=== PATIENT | female | born 1950 | race Caucasian/White ===

== ENCOUNTER → 2019-03-16 09:33 | Outpatient (BNVA) | payer MEDICARE, OTHER, SELFPAY ==
[2019-03-16] MEDS: pneumococcal (23 valent) SDV 0.5 mL (11:35)
--- NOTE | 2019-03-16 11:41 | PC.NURSE ---
1100 PORT TO RIGHT CHEST. APPLIED MASK TO PT AND MYSELF. CLEANED WITH CHLORAPREP. ACCESSED PORT A CATH TO RIGHT CHEST 19G RIGHT AGAIN NEEDED. FLUSHED WITH NS 10ML, WITHDREW 10ML OF WASTE, OBTAINED BLOOD FOR LAB SPECIMENS, FLUSH WITH NS FLUSH 10ML AND HEP LOCK SOLUTION. REMOVED NEEDLE. APPLIED AIR TIGHT DRESSING WITH GAUZE AND TEGADERM. STERILE TECHNIQUE MAINTAINED.
== END ==
PROVIDERS: Family Provider Electrodiagnostic Medicine; PCP Electrodiagnostic Medicine; Visit Provider Internal Medicine Rheumatology
DX: M32.9 Systemic lupus erythematosus, unspecified (principal); Z79.899 Other long term (current) drug therapy; Z23 Encounter for immunization; M35.00 Sjogren syndrome, unspecified; M19.90 Unspecified osteoarthritis, unspecified site; Z51.81 Encounter for therapeutic drug level monitoring; D89.9 Disorder involving the immune mechanism, unspecified; M85.80 Other specified disorders of bone density and structure, unspecified site
CPT/HCPCS: 36591; 80053; 81001; 86160; 90471; 90732; 99213; 99214; J1642

== ENCOUNTER → 2019-03-16 12:00 | Outpatient (BNVA) | payer MEDICARE, OTHER, SELFPAY | PROVIDERS: Family Provider Electrodiagnostic Medicine; PCP Electrodiagnostic Medicine; Visit Provider Internal Medicine Rheumatology | DX: Z51.81 Encounter for therapeutic drug level monitoring (principal); M32.9 Systemic lupus erythematosus, unspecified; D89.9 Disorder involving the immune mechanism, unspecified; M85.80 Other specified disorders of bone density and structure, unspecified site | CPT/HCPCS: 80053; 81001; 86160 ==

== ENCOUNTER 2020-05-12 07:53 | Outpatient (CLI) | payer MEDICARE, OTHER, SELFPAY ==
--- NOTE | 2020-05-12 08:00 | MM_ITS ---
WS: [id number] Bilateral diagnostic digital mammogram, 05/12/2020 Clinical Data: HX OF BREAST CA Comparison: 06/25/2018, 12/26/2017, 05/27/2017, 06/16/2015, 04/02/2011, 10/30/2009, 08/29/2008, 01/04/2008, 07/10/2007, 12/11/2006, 12/02/2006, 11/13/2006, 08/28/2006, 08/20/2006. Findings: The breast parenchymal pattern shows heterogeneous density. There is skin thickening of the left brent st and it is smaller than the right as a result of the patient's therapy for cancer of the left breas t. No spiculated masses or clustered calcifications are seen. There is an infusion port seen in the r ight axilla. MM/[place] [id number] Impression: 1. Negative bilateral mammograms unchanged. 2. Recommend annual screening mammograms. BIRADS: 2-Benign FOLLOW UP: 1 Year Follow-up The CAD checker in was used.
== END 2020-05-12 07:54 | disposition home or self-care (01) ==
LOC: RADSHAW 07:56
PROVIDERS: PCP Electrodiagnostic Medicine; Visit Provider Electrodiagnostic Medicine
DX: Z85.3 Personal history of malignant neoplasm of breast (principal)
CPT/HCPCS: 77066

== ENCOUNTER 2021-12-15 17:57 | Inpatient (IN) | payer MEDICARE, OTHER, SELFPAY ==
[2021-12-15 18:02] VITALS: BMI 25.8
--- NOTE | 2021-12-15 18:52 | CTR_ITS ---
PROCEDURE INFORMATION: Exam: CT Head Without Contrast Exam date and time: 12/15/2021 7:40 PM Age: 71 years old Clinical indication: Injury or trauma; Fall; Blunt trauma (contusions or hematomas); Consciousness not specified; Prior surgery; Surgery date: 6+ months; Surgery type: Aneurysm coil; Patient HX: HX breast CA; Additional info: Fall head injury, dizzy TECHNIQUE: Imaging protocol: Computed tomography of the head without contrast. Radiation optimization: All CT scans at this facility use at least one of these dose optimization techniques: automated exposure control; mA and/or kV adjustment per patient size (includes targeted exams where dose is matched to clinical indication); or iterative reconstruction. COMPARISON: No relevant prior studies available. RADIATION DOSE METRICS: Total DLP (mGy-cm): 1245.78 FINDINGS: Brain: Mild diffuse cortical volume loss. Mild hypodensities in supratentorial periventricular and subcortical white matter, consistent with microangiopathy. No intracranial hemorrhage. Cerebral ventricles: No ventriculomegaly. Paranasal sinuses: Visualized sinuses are unremarkable. No fluid levels. Mastoid air cells: Visualized mastoid air cells are well aerated. Bones/joints: Unremarkable. No acute fracture. Soft tissues: Unremarkable. Vasculature: No hyperdense artery. 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 This creates significant streak artifact. CT/CT head wo con* [id number] IMPRESSION: No acute intracranial finding.
--- NOTE | 2021-12-15 18:52 | XRR_ITS ---
PROCEDURE INFORMATION: Exam: XR Chest Exam date and time: 12/15/2021 7:07 PM Age: 71 years old Clinical indication: Cough; Prior surgery; Surgery date: 6+ months; Surgery type: Lumpectomy for breast CA; Additional info: Cough, HX of pneumonia TECHNIQUE: Imaging protocol: Radiologic exam of the chest. Views: 1 view. COMPARISON: CR XR chest 2V* [id number] 11/26/2021 3:23 PM FINDINGS: Tubes, catheters and devices: Stable right Cescct-N-Qtyo with tip over the right atrium. Lungs: Atelectasis or scarring in the left lung base and right mid lung. New 2.2 cm irregular nodular density in the left mid lung. Pleural spaces: Small left pleural effusion. No pneumothorax. Heart/Mediastinum: Stable mild cardiomegaly. Bones/joints: Unremarkable. Other findings: Rightward thoracic curvature. XR/XR chest 1V portable [id number] IMPRESSION: 1. New nodular density in the left mid lung could represent pneumonia. A neoplastic nodule is not entirely excluded. Close radiographic follow-up is recommended to document resolution. Alternatively this can be further evaluated with a CT chest. 2. Small left pleural effusion.
--- NOTE | 2021-12-15 19:30 | ECG_ITS ---
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 Measurements Intervals [place] Rate: 87 P: 36 MD: 185 QRS: 2 QRSD: 116 T: 82 QT: 379 QTc: 456 Interpretive Statements SINUS RHYTHM POSSIBLE LEFT ATRIAL ENLARGEMENT [-0.1mV P-WAVE IN V1/V2] MODERATE INTRAVENTRICULAR CONDUCTION DELAY [110+ ms QRS DURATION] NONSPECIFIC ST & T-WAVE ABNORMALITY Compared to ECG 04/15/2016 14:24:23 Intraventricular conduction delay now present T-wave abnormality now present Myocardial infarct finding no longer present Electronically Signed On 12-16-2021 9:44:54 PHOTOGRAMMETRIC TECHNICIAN by Irma Teran M.D. [id number]
[2021-12-15 19:31] VITALS: BP 133/60; PULSE 86; RESP 17; O2SAT 97
[2021-12-15 19:37] LABS: Basophils % 0.2 %; Eosinophils % 0.5 %; Hematocrit 41.1 % (37.0-47.0); Hemoglobin 12.8 g/dL (11.5-15.3); Lymphocytes # 0.6 10^3/uL (0.8-4.8); Lymphocytes % 10.2 %; Mean Corpuscular HGB Conc 31.1 g/dL (30.0-36.0); Mean Corpuscular Hemoglobin 30.3 pg (28.0-34.0); Mean Corpuscular Volume 97.4 fl (81-99); Mean Platelet Volume 10.9 fL (7.4-10.4); Monocytes # 0.7 10^3/uL (0.2-0.9); Monocytes % 11.2 %; Neutrophils # 4.71 10^3/uL (1.8-7.7); Neutrophils % 77.6 %; Nucleated Red Blood Cells % 0 %; Platelet Count 158 10^3/cmm (130-400); Red Blood Count 4.22 10^6/uL (4.1-5.3); Red Cell Distribution Width 14.7 % (12.1-15.1); White Blood Count 6.1 10^3/uL (4.0-10.0)
[2021-12-15 19:47] LABS: INR 1.14 (0.8-1.2)
[2021-12-15 19:48] LABS: Partial Thromboplastin Time 27.6 SECONDS (23.9-36.7)
[2021-12-15 19:53] LABS: Alanine Aminotransferase 97 U/L (0-33); Albumin Level 3.7 g/dL (3.5-5.2); Alkaline Phosphatase 124 U/L (35-105); Anion Gap 14.6 (5-19); Aspartate Amino Transferase 36 U/L (0-32); Blood Urea Nitrogen 28 mg/dL (8-23); C Reactive Protein 32.3 mg/L (0.0-4.9); Calcium 9.4 mg/dL (8.5-10.5); Carbon Dioxide 26 mmol/L (22-29); Chloride 98 mmol/L (98-107); Globulin 2.3 g/dL (1.3-4.6); Glucose 55 mg/dL (65-115); Magnesium 2.4 mg/dL (1.7-2.3); Osmolality Calculated 283 mOsm/kg (285-295); Phosphorus 2.8 mg/dL (2.5-4.5); Potassium 3.6 mmol/L (3.5-5.1); Sodium 135 mmol/L (136-145); Total Bilirubin 0.8 mg/dL (0.15-1.2)
--- NOTE | 2021-12-15 20:00 | XRR_ITS ---
PROCEDURE INFORMATION: Exam: XR Right Foot Exam date and time: 12/15/2021 8:21 PM Age: 71 years old Clinical indication: Pain; Foot; Right; Additional info: Foot pain and swelling post injury TECHNIQUE: Imaging protocol: Radiologic exam of the Right foot. Views: 3 or more views. COMPARISON: No relevant prior studies available. FINDINGS: Bones/joints: Old 4th proximal phalanx fracture. No acute fracture. Soft tissues: Dorsal soft tissue swelling. XR/XR foot RT min 3V* [id number] IMPRESSION: No acute fracture.
--- NOTE | 2021-12-15 20:02 | CTR_ITS ---
PROCEDURE INFORMATION: Exam: CT Chest With Contrast; Diagnostic Exam date and time: 12/15/2021 8:27 PM Age: 71 years old Clinical indication: Injury or trauma; Fall; Generalized; Blunt trauma (contusions or hematomas); Additional info: Falls, elevated liver enzymes, nodular lung density TECHNIQUE: Imaging protocol: Diagnostic computed tomography of the chest with contrast. Radiation optimization: All CT scans at this facility use at least one of these dose optimization techniques: automated exposure control; mA and/or kV adjustment per patient size (includes targeted exams where dose is matched to clinical indication); or iterative reconstruction. Contrast material: OMNIPAQUE 350; Contrast volume: 100 ml; Contrast route: INTRAVENOUS (IV); COMPARISON: CR (CHEST, ) 12/15/2021 7:07 PM RADIATION DOSE METRICS: Total DLP (mGy-cm): 806.82 FINDINGS: Lungs: Patchy/nodular airspace opacities in both lower lobes. Nodular consolidation with a small cavitation in the anterior left upper lobe measuring 2.9 cm. Pleural spaces: Moderate left and small right pleural effusions. Heart: Mild cardiomegaly. No coronary artery calcifications. The RV/LV ratio is 0.7. Lymph nodes: Unremarkable. No enlarged lymph nodes. Vasculature: There is abrupt cut off of contrast opacification of a posterior right lower lobe pulmonary artery branch, series 3, images 38-40. Bones/joints: Mild superior T11 compression fracture. Soft tissues: Unremarkable. PROCEDURE INFORMATION: Exam: CT Abdomen And Pelvis With Contrast Exam date and time: 12/15/2021 8:27 PM Age: 71 years old Clinical indication: Injury or trauma; Fall; Generalized; Blunt trauma (contusions or hematomas); Additional info: Falls, elevated liver enzymes, nodular lung density TECHNIQUE: Imaging protocol: Computed tomography of the abdomen and pelvis with contrast. Radiation optimization: All CT scans at this facility use at least one of these dose optimization techniques: automated exposure control; mA and/or kV adjustment per patient size (includes targeted exams where dose is matched to clinical indication); or iterative reconstruction. Contrast material: OMNIPAQUE 350; Contrast volume: 100 ml; Contrast route: INTRAVENOUS (IV); COMPARISON: CR (CHEST, ) 12/15/2021 7:07 PM RADIATION DOSE METRICS: Total DLP (mGy-cm): 806.82 FINDINGS: Liver: Normal. No mass. Gallbladder and bile ducts: Normal. No calcified stones. No ductal dilation. Pancreas: Normal. No ductal dilation. Spleen: Normal. No splenomegaly. Adrenal glands: Normal. No mass. Kidneys and ureters: Normal. No hydronephrosis. Stomach and bowel: Unremarkable. No obstruction. No mucosal thickening. Appendix: The appendix is visualized and is normal. Intraperitoneal space: Mild pelvic ascites. No free peritoneal air. Vasculature: Mild arterial calcifications. No aneurysm. Lymph nodes: Unremarkable. No enlarged lymph nodes. Urinary bladder: Unremarkable as visualized. Reproductive: The uterus is absent. The ovaries are normal. Bones/joints: Moderate L1 and minimal L2 compression fractures. Soft tissues: Mild body wall edema. No organized soft tissue fluid collection. CT/CT chest abd pel w con* IMPRESSION: 1. Findings suspicious for a small pulmonary embolus in a right lower lobe artery branch. 2. Bilateral multilobar nodular consolidations is most likely pneumonia. 3. 2.9 cm nodular consolidation in the anterior left upper lobe with a small cavitation. This could represent pneumonia with a small abscess. A septic embolus or malignant neoplasm are considered less likely. Close CT follow-up to document resolution recommended. 4. Moderate left and small right pleural effusions. IMPRESSION: 1. No acute findings. 2. Mild nonspecific pelvic ascites. 3. Mild body wall edema. 4. Age indeterminate T11, L1, and L2 compression fractures.
[2021-12-15] MEDS: iohexol 350 mg/mL 500 mL Btl (per mL) IV (20:34)
--- NOTE | 2021-12-15 20:48 | W.ED.FALL ---
HPI - Fall General: Chief Complaint: Fall Stated Complaint: fall/ all over pain Time Seen by Provider: 12/15/21 18:28 Source: patient History of Present Illness: 71-year-old female with a history of systemic lupus. She presents after a couple of falls at home. She was diagnosed with pneumonia couple of weeks ago, and evidently took antibiotics for this. She had COVID prior to that around 3 weeks ago. Since that time she has been generally weak. She has been off balance at home. She denies any ongoing fever. She does have somewhat of a cough still. She is not overly short of breath. She notes that she is very generally weak. MD complaint: fall Onset (ago): day(s) Fall from: standing Fall witnessed: no Place fall occurred: home Loss of consciousness: None Prolonged down time: no Symptoms prior to fall: dizziness Associated symptoms-after fall: Reports difficulty walking; Denies abdominal pain or chest pain Review of Systems Const: Denies: fever(s) or chills Eyes: Denies: change in vision ENMT: Reports: swelling of lips/tongue and oral sores (stomatitis ); Denies: throat pain Card: Denies: chest pain or palpitations Resp: Denies: dyspnea, productive cough or non-productive cough GI: Reports: nausea; Denies: abdominal pain or vomiting Neuro: Reports: difficulty walking, frequent falls and dizziness [facility] PFSH: Medical History Hyperlipidemia LDL goal <100 Immunosuppression Osteopenia Systemic lupus erythematosus (SLE) in adult Varicose veins of bilateral lower extremities with other complications Vitamin D deficiency, unspecified Family History Other Cancer Hyperlipidemia Migraine headache Osteoarthritis Rheumatoid arthritis Stroke Social History Smoking and tobacco status: never smoked Alcohol intake: current Alcohol intake frequency: 3 or more drinks per day Alcohol type: wine History of recent travel: No Physical Exam Const: GENERAL APPEARANCE: cooperative and frail appearing HENMT: COMMON NORMALS: normocephalic, atraumatic and Normal external nose present HEAD & SCALP: normocephalic and atraumatic FACE & SINUS: normal facial exam and face symmetric NOSE: Normal external nose present MOUTH: other (stomatitis present) Eye: COMMON NORMALS: Equal, round and reactive pupils present and EOMs intact bilaterally PUPIL: Yes Equal, round and reactive pupils present Chest: CHEST: Yes Symmetrical chest wall rise Resp: COMMON NORMALS: normal respiratory effort, No use of accessory muscles and clear to auscultation bilaterally AUSCULTATION: clear to auscultation bilaterally Cardio: COMMON NORMALS: regular rate and regular rhythm RATE: regular rate RHYTHM: regular rhythm GI: COMMON NORMALS: Normal to inspection, nondistended, normoactive bowel sounds present, Soft to palpation and non-tender PALPATION: Yes Soft to palpation Extremity: GENERAL: Yes edema (2+) Neuro: TONYA COMA SCALE: document GCS findings Tonya coma scale eye opening: Spontaneous [place] coma scale verbal response: Orientated Tonya coma scale motor response: Obey commands [place] coma scale total score: 15 Psych: COMMON NORMALS: mental status grossly normal and cooperative Course Vital Signs: Vital signs: Vital Signs Temperature 97.5 F L 12/16/21 00:00 Pulse Rate 90 12/16/21 00:00 Respiratory Rate 17 12/16/21 00:00 Blood Pressure 113/69 12/16/21 00:00 Pulse Oximetry 92 12/16/21 00:00 Oxygen Delivery Me thod 12/16/21 00:57 MDM - Fall Medical Decision Making 71-year-old female with a history of SLE. She presents with generalized weakness and falls. Chest x-ray shows a nodular density in the left midlung. CBC is normal. BUN is 28 creatinine is 1. Her sugar is 55. She is awake and alert with this. CT of the head is negative. Foot x-ray is negative. CT of the chest abdomen pelvis shows a nodular lesion in the left upper lobe with a cavitation likely representing pneumonia with a possible small abscess. She has bilateral pleural effusions. And she likely has a small pulmonary embolus in the right lower lobe as well. Spoke with hospitalist service. We will admit this patient for IV antibiotics. Zosyn was suggested, but she is allergic to penicillin which causes swelling so we will use Levaquin for now. She will require anticoagulation for the pulmonary embolus. Given her significant elevation of 24,000 BNP, we will attempt to gently diurese her. She will be admitted. Repeat blood sugar after sandwich was 69. She remains awake and alert. We will feed her some more, and recheck sugar in 2 hours. Lab Data : 12/15/21 19:27 12/15/21 19: Radiology Impressions Chest X-Ray 12/15/21 18:52 IMPRESSION: 1. New nodular density in the left mid lung could represent pneumonia. A neoplastic nodule is not entirely excluded. Close radiographic follow-up is recommended to document resolution. Alternatively this can be further evaluated with a CT chest. 2. Small left pleural effusion. Head CT 12/15/21 18:52 IMPRESSION: No acute intracranial finding. Foot X-Ray 12/15/21 20:00 IMPRESSION: No acute fracture. Chest/Abdomen/Pelvis CT 12/15/21 20:02 IMPRESSION: 1. Findings suspicious for a small pulmonary embolus in a right lower lobe artery branch. 2. Bilateral multilobar nodular consolidations is most likely pneumonia. 3. 2.9 cm nodular consolidation in the anterior left upper lobe with a small cavitation. This could represent pneumonia with a small abscess. A septic embolus or malignant neoplasm are considered less likely. Close CT follow-up to document resolution recommended. 4. Moderate left and small right pleural effusions. IMPRESSION: 1. No acute findings. 2. Mild nonspecific pelvic ascites. 3. Mild body wall edema. 4. Age indeterminate T11, L1, and L2 compression fractures. ADDENDUM: 12/15/212112 THIS REPORT CONTAINS FINDINGS THAT MAY BE CRITICAL TO PATIENT CARE. The findings were verbally communicated via telephone conference with BRANDAN ACEVEDO at 9:11 PM CDT on 12/15/2021. The findings were acknowledged and understood. Laboratory Results WBC 6.1 10^3/uL (4.0-10.0) 12/15/21: RBC 4.22 10^6/uL (4.1-5.3) 12/15/21: Hgb 12.8 g/dL (11.5-15.3) 12/15/21: Hct 41.1 % (37.0-47.0) 12/15/21: MCV 97.4 fl (81-99) 12/15/21: MCH 30.3 pg (28.0-34.0) 12/15/21: MCHC 31.1 g/dL (30.0-36.0) 12/15/21: RDW 14.7 % (12.1-15.1) 12/15/21: Plt Count 158 10^3/cmm (130-400) 12/15/21 MPV 10.9 fL (7.4-10.4) H 12/15/21: Neut % (Auto) 77.6 % 12/15/21: Lymph % (Auto) 10.2 % 12/15/21: [place] % (Auto) 11.2 % 12/15/21 Eos % (Auto) 0.5 % 12/15/21 Baso % (Auto) 0.2 % 12/15/21 Neut # (Auto) 4.71 10^3/uL (1.8-7.7) 12/15/21 Lymph # (Auto) 0.6 10^3/uL (0.8-4.8) L 12/15/21: [place] # (Auto) 0.7 10^3/uL (0.2-0.9) 12/15/21 Eos # (Auto) 0.0 10^3/uL (0.0-0.8) 12/15/21 Baso # (Auto) 0.0 10^3/uL (0.0-0.1) 12/15/21 Nucleated RBC % (auto) 0 % 12/15/21 Nucleated RBCs # 0.0 /100WBC 12/15/21: PT 14.90 SECONDS (12.1-14.9) 12/15/21: INR 1.14 (0.8-1.2) 12/15/21: APTT 27.6 SECONDS (23.9-36.7) 12/15/21: Sodium 135 mmol/L (136-145) L 12/15/21 Potassium 3.6 mmol/L (3.5-5.1) 12/15/21: Chloride 98 mmol/L (98-107) 12/15/21: Carbon Dioxide 26 mmol/L (22-29) 12/15/21 19:27 Anion Gap 14.6 (5-19) 12/15/21 19:27 BUN 28 mg/dL (8-23) H 12/15/21 19: Creatinine 1.0 mg/dL (0.5-0.9) H 12/15/21 19:27 GFR Calculation Not Reportable 12/15/21: Glucose 55 mg/dL (65-115) L 12/15/21: Calculated Osmolality 283 mOsm/kg (285-295) L 12/15/21 19: Lactate 2.0 mmol/L (0.5-2.2) 12/15/21 19: Calcium 9.4 mg/dL (8.5-10.5) 12/15/21: Phosphorus 2.8 mg/dL (2.5-4.5) 12/15/21: Magnesium 2.4 mg/dL (1.7-2.3) H 12/15/21: Total Bilirubin 0.8 mg/dL (0.15-1.2) 12/15/21 19: AST 36 U/L (0-32) H 12/15/21 19: ALT 97 U/L (0-33) H 12/15/21 19:27 Alkaline Phosphatase 124 U/L (35-105) H 12/15/21 19: C-Reactive Protein 32.3 mg/L (0.0-4.9) H 12/15/21 19: NT-Pro-B Natriuret Pep 53467 pg/mL (0-125) H 12/15/21 19: Total Protein 6.0 g/dL (6.6-8.7) L 12/15/21 19: Albumin 3.7 g/dL (3.5-5.2) 12/15/21 19: Globulin 2.3 g/dL (1.3-4.6) 12/15/21 19:27 Discharge Plan Discharge Patient Disposition: Admitted As Inpatient Admit Provider: Lauryn Ulrich Clinical Impression: Systemic lupus erythematosus (SLE) in adult, Pulmonary embolism, Pneumonia Condition: Fair Coding Level of Care Code ED Clerical Adviser for Chg Fwd Exam Comprehensive
[2021-12-15 21:19] LABS: NT Pro B Type Natriuretic Pept 25035 pg/mL (0-125)
[2021-12-15] MEDS: levofloxacin-dextrose 5 % 750 MG/150 ML PREMIX 100 MG IV (22:18)
[2021-12-15] MEDS: enoxaparin 80 mg/0.8 mL Syringe 70 MG SUBCUT (22:31)
[2021-12-15] MEDS: FUROsemide 10 mg/mL SDV 10mL 60 MG IVP (22:31)
--- NOTE | 2021-12-15 22:49 | USCV_ITS ---
Xenia Vivas Age: 71 Gender: F : 1950 Exam Date: 12/15/2021 23:13 Ordering Phys: Lauryn Ulrich MD Technologist: Connie Vivas Exam Location: [facility] [place] Indication: PE, Chest Pain BP: 133 / 60 HR: 92 Rhythm: Sinus Technical Quality: Suboptimal MEASUREMENTS (Male / Female) Normal Values 2D ECHO LV Diastolic Diameter PLAX 5.1 cm 4.2 - 5.9 / 3.9 - 5.3 cm LV Systolic Diameter PLAX 4.0 cm LV Chamber Size 4.0 cm IVS Diastolic Thickness 1.1 cm 0.6 - 1.0 / 0.6 - 0.9 cm IVS Systolic Thickness 1.2 cm LVPW Diastolic Thickness 1.1 cm 0.6 - 1.0 / 0.6 - 0.9 cm LVPW Systolic Thickness 1.6 cm RV Chamber Size 3.3 cm LVOT Diameter 2.1 cm LV Ejection Fraction 2D Teich 41.8 % LV Ejection Fraction MOD 2C 50.1 % LV Ejection Fraction 2C AL 50.1 % LA Diameter 4.2 cm LA Width 3.0 cm LA Height 6.3 cm RA Width 4.5 cm RA Height 4.7 cm Aorta at Sinotubular Diameter 2.7 cm IVC Diameter 2.7 cm M-MODE Aortic Annulus Diameter 1.6 cm LA Ao Ratio MM 1.7 MV E Point Septal Separation 1.8 cm DOPPLER AV Peak Velocity 303.0 cm/s LVOT Peak Velocity 69.3 cm/s AV Area Cont Eq vti 1.0 cm squared AV Area Cont Eq pk 0.8 cm squared MV Area PHT 5.5 cm squared Mitral E to A Ratio 1.1 MV E' Velocity 64.5 cm/s Mitral E to MV E' Ratio 11.3 Mitral E to LV E' Lateral Ratio 8.5 Mitral E to LV E' Septal Ratio 16.6 TR Peak Velocity 334.5 cm/s TR Peak Gradient 44.8 mmHg TR Mean Velocity 225.0 cm/s TR Mean Gradient 23.3 mmHg TR Velocity Time Integral 100.7 cm TV Peak E Velocity 101.0 cm/s Right Atrial Pressure 8.0 mmHg Pulmonary Artery Systolic Pressu 52.8 mmHg RV Acceleration Time 0.1 s RV Ejection Time 0.3 s RV AcT/ET 0.5 FINDINGS Left Ventricle Normal left ventricular cavity size. Mildly decreased left ventricular systolic function. Left ventricular ejection fraction is estimated at 45-50 %. There seems to be septal and apical hypokinesis. Grade II diastolic dysfunction, moderately elevated filling pressures. Right Ventricle Normal right ventricular size and systolic function. Right ventricular systolic pressure 52 mmHg. Right Atrium Normal right atrial size. Left Atrium Mildly increased left atrial size. Mitral Valve Mild mitral annular calcification. No mitral valve stenosis. Mild mitral valve regurgitation. Aortic Valve Aortic valve not well visualized. Moderately thickened and calcified aortic valve. Moderate aortic valve stenosis, peak velocity 3 m/s, peak gradient 37 mmHg , mean gradient 17.8 mmHg, KRUPA 0.96 cm squared. [id number] aortic valve regurgitation. Tricuspid Valve Structurally normal tricuspid valve. No tricuspid valve stenosis. Mild tricuspid valve regurgitation. Pulmonic Valve Pulmonic valve not well visualized. Pericardium No pericardial effusion. Aorta Normal size aortic root and proximal ascending aorta. IVC Inferior vena cava not visualized. CONCLUSIONS 1. Normal left ventricular cavity size. Mildly decreased left ventricular systolic function. Left ventricular ejection fraction is estimated at 45-50 %. There seems to be septal and apical hypokinesis. Grade II diastolic dysfunction, moderately elevated filling pressures. 2. Normal right ventricular size and systolic function. 3. Moderately thickened and calcified aortic valve. Moderate aortic valve stenosis, peak velocity 3 m/s, peak gradient 37 mmHg , mean gradient 17.8 mmHg, KRUPA 0.96 cm squared. [id number] aortic valve regurgitation. 4. Mild mitral and tricuspid valve regurgitation. 5. No recent prior studies to compare. Irma Teran MD (Electronically Signed) Final Date: 16 December 2021 10:35 S
--- NOTE | 2021-12-15 22:58 | PM.HP ---
Providers/Chief Complaint Admitting Physician: Lauryn Ulrich MD Primary Care Provider: Jay Juarez DO Chief Complaint: fall/ all over pain History of Present Illness Xenia Vivas is a 71 year old female with a past medical history of SLE currently on belimumab. HCQS, leflunomide presenting to the emergency room with history of recent recurrent falls at home. She is complaining of generalized fatigue and malaise. She saw her kitchen help handyman 3 and primary care provider approximately 3 weeks ago and was diagnosed with a pneumonia for which she has been on antibiotics. Does not recall the name but possibly this is doxycycline. Reportedly she had COVID a month ago following which she has developed anosmia, abnormal taste and has had a persistent cough since then. She reports feeling dizzy with change in position. No injuries have resulted from these falls. She denies any current complaints of chest pain palpitations. She does complain of subjective dyspnea. She is noted to be saturating 90% on room air. Upon evaluation in the emergency room she is found to have a chest x-ray with new nodular density in the left midlung suggestive of pneumonia versus neoplasm. Follow-up CT of the chest was performed which showed bilateral multilobar nodular consolidations likely consistent with a pneumonia. 2.79 cm nodular consolidation in the anterior left upper lobe also shows an additional cavitation. Small abscess could not be excluded. She had moderate left and small right pleural effusions. Also has right side PE. Also signs of mild pelvic ascites, body wall edema and old T11 L1-L2 compression fractures. Abnormalities on lab testing include elevated BNP. Ct head normal. Review of Systems General: Reports: 10 or more systems reviewed and unremarkable except in HPI and below Const: Denies: fever(s), chills or body aches Eyes: Denies: change in vision, blurry vision or photophobia ENMT: Reports: hoarseness; Denies: throat pain, enlarged tonsils, odynophagia or nasal congestion Card: Denies: chest pain, palpitations, irregular heart rhythm, edema, swelling of feet/ankles, lightheadedness, pre-syncope, dyspnea on exertion or orthopnea Resp: Denies: dyspnea, productive cough, non-productive cough, wheezing, stridor, pain on inspiration, change in phlegm color, hemoptysis or chest congestion GI: Denies: abdominal pain, nausea, vomiting, hematemesis, coffee ground emesis, dysphagia, heartburn, diarrhea, constipation, GI cramping, change in stool character, hematochezia or melena : Denies: flank pain, difficulty voiding, dysuria, urinary frequency, urinary urgency, urinary hesitancy or hematuria Musc: Denies: neck pain, back pain, extremity pain, joint swelling, joint warmth or deformity Neuro: Denies: headache(s), numbness in extremities, weakness in extremities, sensory changes, difficulty walking, frequent falls, dizziness, vertigo, behavioral changes, Slurred speech present or seizure-like activity Psych: Denies: anxiety, depression, suicidal ideation or homicidal ideation Endo: Denies: polyuria, polydipsia, tired all the time, cold intolerance or hot flashes Aniket/Lymph: Denies: easy bruising or easy bleeding Medications/Allergies Home Medications Medication Instructions Recorded Confirmed Last Taken Type aspirin 325 mg tablet 325 mg PO DAILY 02/08/19 09/14/20 Unknown History belimumab 200 mg/mL subcutaneous 200 mg SUBCUT .ONCE WEEKLY 02/08/19 09/14/20 Unknown History auto-injector (Benlysta) calcium carbonate 600 mg calcium 600 mg PO DAILY 02/08/19 09/14/20 Unknown History (1,500 mg) tablet (Calcium) calcium carbonate-magnesium oxide tab PO 02/08/19 09/14/20 Unknown History 333 mg-167 mg tablet cholecalciferol (vitamin D3) 25 1,000 unit PO DAILY 02/08/19 09/14/20 Unknown History mcg (1,000 unit) capsule dextran 70-hypromellose (PF) 0.1 1 drop ophthalmic (eye) ONCE 02/08/19 09/14/20 Unknown History %-0.3 % eye drops in a dropperette (Natural Tears (PF)) omega-3 fatty acids 1,000 mg 1,000 mg PO DAILY 02/08/19 09/14/20 Unknown History capsule (Fish Oil Concentrate) potassium gluconate 595 mg (99 mg) See Rx Instructions PO DAILY 02/08/19 09/14/20 Unknown History tablet,extended release atorvastatin 20 mg tablet 20 mg PO DAILY 03/16/19 09/14/20 Unknown History escitalopram oxalate 10 mg tablet 10 mg PO DAILY 03/16/19 09/14/20 Unknown History hydroxychloroquine 200 mg tablet 200 mg PO DAILY 03/16/19 09/14/20 Unknown History leflunomide 20 mg tablet 20 mg PO DAILY 03/16/19 09/14/20 Unknown History amitriptyline 25 mg tablet 25 mg PO DAILY 08/24/19 09/14/20 Unknown History zinc 50 mg tablet 50 mg PO DAILY 09/14/20 09/14/20 Unknown History isosorbide mononitrate 30 mg 15 mg PO DAILY #15 tabs 11/26/21 Unknown Rx tablet,extended release 24 hr metoprolol succinate 25 mg 12.5 mg PO DAILY #15 tabs 11/28/21 Unknown Rx tablet,extended release 24 hr Allergies Allergy/AdvReac Type Severity Reaction Status Date / Time Penicillins Allergy Severe swelling Verified 08/24/19 14:38 Sulfa (Sulfonamide Allergy Severe rash Verified 08/24/19 14:38 Antibiotics) PFSH Acute PFSH: Medical History Hyperlipidemia LDL goal <100 Immunosuppression Osteopenia Systemic lupus erythematosus (SLE) in adult Varicose veins of bilateral lower extremities with other complications Vitamin D deficiency, unspecified Family History Other Cancer Hyperlipidemia Migraine headache Osteoarthritis Rheumatoid arthritis Stroke Social History Smoking and tobacco status: never smoked Alcohol intake: current Alcohol intake frequency: 3 or more drinks per day Alcohol type: wine History of recent travel: No Vitals/I&O/Wt Last Vital Signs Pulse 86 12/15/21 19:31 Resp 17 12/15/21 19:31 BP 133/60 12/15/21 19:31 Pulse Ox 97 12/15/21 19:31 O2 Del Method 12/15/21 19:31 Weight last 48 hrs Weight 74.843 kg Physical Exam Narrative: General: No acute distress, AO x3 HEENT: PERRLA, pupils bilaterally equal and reactive, pallors not present Chest: Normal vesicular breath sounds, no added sounds, equal good air entry bilaterally CVS: S1-S2 regular, no murmurs, no tachycardia, no gallops, no rubs Abdomen: Soft, nontender, no organomegaly, bowel sounds present Neuro: No focal deficits, no facial deformity, AO x3, power 5/5 in all limbs Data : 12/16/21 04:00 12/16/21 04:00 Other Labs: Radiology Impressions Chest X-Ray 12/15/21 18:52 IMPRESSION: 1. New nodular density in the left mid lung could represent pneumonia. A neoplastic nodule is not entirely excluded. Close radiographic follow-up is recommended to document resolution. Alternatively this can be further evaluated with a CT chest. 2. Small left pleural effusion. Head CT 12/15/21 18:52 IMPRESSION: No acute intracranial finding. Foot X-Ray 12/15/21 20:00 IMPRESSION: No acute fracture. Chest/Abdomen/Pelvis CT 12/15/21 20:02 IMPRESSION: 1. Findings suspicious for a small pulmonary embolus in a right lower lobe artery branch. 2. Bilateral multilobar nodular consolidations is most likely pneumonia. 3. 2.9 cm nodular consolidation in the anterior left upper lobe with a small cavitation. This could represent pneumonia with a small abscess. A septic embolus or malignant neoplasm are considered less likely. Close CT follow-up to document resolution recommended. 4. Moderate left and small right pleural effusions. IMPRESSION: 1. No acute findings. 2. Mild nonspecific pelvic ascites. 3. Mild body wall edema. 4. Age indeterminate T11, L1, and L2 compression fractures. ADDENDUM: 12/15/212112 THIS REPORT CONTAINS FINDINGS THAT MAY BE CRITICAL TO PATIENT CARE. The findings were verbally communicated via telephone conference with SALBADOR MENDEZ at 9:11 PM CDT on 12/15/2021. The findings were acknowledged and understood. Laboratory Results WBC 6.0 10^3/uL (4.0-10.0) 12/16/21 04:00 RBC 3.78 10^6/uL (4.1-5.3) L 12/16/21 04:00 Hgb 11.4 g/dL (11.5-15.3) L 12/16/21 04:00 Hct 35.9 % (37.0-47.0) L 12/16/21 04:00 MCV 95.0 fl (81-99) 12/16/21 04:00 MCH 30.2 pg (28.0-34.0) 12/16/21 04:00 MCHC 31.8 g/dL (30.0-36.0) 12/16/21 04:00 RDW 14.6 % (12.1-15.1) 12/16/21 04:00 Plt Count 146 10^3/cmm (130-400) 12/16/21 04:00 MPV 11.2 fL (7.4-10.4) H 12/16/21 04:00 Neut % (Auto) 77.0 % 12/16/21 04:00 Lymph % (Auto) 8.4 % 12/16/21 04:00 [place] % (Auto) 13.5 % 12/16/21 04:00 Eos % (Auto) 0.5 % 12/16/21 04:00 Baso % (Auto) 0.3 % 12/16/21 04:00 Neut # (Auto) 4.60 10^3/uL (1.8-7.7) 12/16/21 04:00 Lymph # (Auto) 0.5 10^3/uL (0.8-4.8) L 12/16/21 04:00 [place] # (Auto) 0.8 10^3/uL (0.2-0.9) 12/16/21 04:00 Eos # (Auto) 0.0 10^3/uL (0.0-0.8) 12/16/21 04:00 Baso # (Auto) 0.0 10^3/uL (0.0-0.1) 12/16/21 04:00 Nucleated RBC % (auto) 0 % 12/16/21 04:00 Nucleated RBCs # 0.0 /100WBC 12/16/21 04:00 PT 14.90 SECONDS (12.1-14.9) 12/15/21 19:27 INR 1.14 (0.8-1.2) 12/15/21 19:27 APTT 27.6 SECONDS (23.9-36.7) 12/15/21 19:27 Sodium 138 mmol/L (136-145) 12/16/21 04:00 Potassium 3.3 mmol/L (3.5-5.1) L 12/16/21 04:00 Chloride 100 mmol/L (98-107) 12/16/21 04:00 Carbon Dioxide 27 mmol/L (22-29) 12/16/21 04:00 Anion Gap 14.3 (5-19) 12/16/21 04:00 BUN 25 mg/dL (8-23) H 12/16/21 04:00 Creatinine 1.0 mg/dL (0.5-0.9) H 12/16/21 04:00 GFR Calculation Not Reportable 12/16/21 04:00 Glucose 96 mg/dL (65-115) 12/16/21 04:00 POC Glucose 102 mg/dL (70-110) 12/16/21 02:52 Calculated Osmolality 290 mOsm/kg (285-295) 12/16/21 04:00 Lactate 2.0 mmol/L (0.5-2.2) 12/15/21 19:27 Calcium 8.9 mg/dL (8.5-10.5) 12/16/21 04:00 Phosphorus 2.8 mg/dL (2.5-4.5) 12/15/21 19:27 Magnesium 2.4 mg/dL (1.7-2.3) H 12/15/21 19:27 Total Bilirubin 0.8 mg/dL (0.15-1.2) 12/16/21 04:00 AST 28 U/L (0-32) 12/16/21 04:00 ALT 76 U/L (0-33) H 12/16/21 04:00 Alkaline Phosphatase 108 U/L (35-105) H 12/16/21 04:00 C-Reactive Protein 32.3 mg/L (0.0-4.9) H 12/15/21 19:27 NT-Pro-B Natriuret Pep 18791 pg/mL (0-125) H 12/15/21 19:27 Total Protein 5.0 g/dL (6.6-8.7) L 12/16/21 04:00 Albumin 3.2 g/dL (3.5-5.2) L 12/16/21 04:00 Globulin 1.8 g/dL (1.3-4.6) 12/16/21 04:00 Procalcitonin 0.08 ng/mL (0-0.5) 12/16/21 04:00 Urine Color Colorless (Yellow) 12/15/21 23:15 Urine Appearance Clear (CLEAR) 12/15/21 23:15 Urine pH 8 (5-7) H 12/15/21 23:15 Ur Specific [place] 1.010 (1.005-1.030) 12/15/21 23:15 Urine Protein Neg (Negative) 12/15/21 23:15 Urine Glucose (UA) Norm (Normal) 12/15/21 23:15 Urine Ketones Negative (Negative) 12/15/21 23:15 Urine Blood Neg (Negative) 12/15/21 23:15 Urine Nitrate Negative (Negative) 12/15/21 23:15 Urine Bilirubin Neg (Negative) 12/15/21 23:15 Prot Sulfosalicylic Acd Negative (Negative) 12/15/21 23:15 Urine Urobilinogen Norm mg/dL (Negative) 12/15/21 23:15 Ur Leukocyte Esterase Negative (Negative) 12/15/21 23:15 Micro: Microbiology 12/15/21 21:38 Blood Culture - Preliminary Blood SPECIMEN COLLECTED 12/15/21 19:27 Blood Culture - Preliminary Blood SPECIMEN COLLECTED A&P Assessment and plan (1) Pulmonary embolism: (2) Pneumonia: (3) Systemic lupus erythematosus (SLE) in adult: (4) Immunosuppression: Plan 71-year-old female with SLE, currently on multiple immunomodulators including belimumab (B-cell activation inhibitor), leflunomide and HCQS. Presenting with 3-week history of dyspnea shortness of breath, appears to have started after recent COVID infection. She has been on outpatient antibiotics with possibly doxycycline for a pneumonia, however does not know the name of this antibiotic for sure. Presented to the emergency room with generalized weakness, recurrent falls. CT of her chest abdomen and pelvis revealed bilateral multifocal infiltrates, some of which are pleural-based and a right-sided PE. A 2.9 cm lesion with possible cavitation and abscess is also seen. Will admit patient to the hospital for bilateral pneumonia, no improvement on oral antibiotics. Antibiotic treatment initiated with cefepime and vancomycin Check sputum culture MRSA nares, urine bacterial and Legionella antigen. Given that she is on immunomodulators including B-cell activation inhibitors, will evaluate for other atypical causes including invasive fungal infection. Will initiate peripheral work-up with serum Aspergillus galactomannan, urine histoplasma antigen. Check AFB smear and culture. Will likely need further pulmonology evaluation and possible bronchoscopy to ascertain nature of these lesions. This will likely be only available on Friday (today is Friday). Also found to have a small right-sided PE for which we will initiate anticoagulation with Lovenox 1 mg/kg every 12 hours subcutaneously. Denies any current chest pain. Additionally with signs also of fluid overload with bilateral pleural effusions, trace ascites. Check echocardiogram. Supplemental 02 to keep saturation >92% recurrent falls: CT head normal. Check orthostatics, no LOC Attestations Medical Necessity Statement*: anticipate > 2 midnight admission for above defined care Coding Level of Care Code Acute Dungeon Master for [facility] Fwd Diagnoses Pulmonary embolism I26.99 Pneumonia J18.9 Systemic lupus erythematosus (SLE) in adult M32.9 Immunosuppression D89.9
[2021-12-15 23:25] LABS: Add Urine Microscopic? NO; Charge for UA Resulting for Rev
[2021-12-15 23:35] LABS: Bilirubin Urine Neg (Negative); Blood Urine Neg (Negative); Glucose Urine UA Norm (Normal); Ketones Urine Negative (Negative); Leukocyte Esterase Urine Negative (Negative); Nitrate Urine Negative (Negative); Protein Urine Neg (Negative); Sulfosalicylic Acid Urine Negative (Negative); Urine Appearance Clear (CLEAR); Urine Color Colorless (Yellow); Urobilinogen Urine Norm (Negative); pH Urine 8 (5-7)
[2021-12-16] VITALS (12 sets, daily range): BP systolic 101–113; BP diastolic 61–69; PULSE 66–100; RESP 16–18; TEMP 36.4–36.8; O2SAT 90–94
--- NOTE | 2021-12-16 00:08 | PC.PHAR ---
Pharmacokinetic dosing service Date: 12/16/21 Time: 000 Objective: Patient: Xenia Vivas Floor: 279-2 Age: 71 yo Serum creatinine: 1.0 mg/dL Height: 67.0 Inches Weight (kg): 74.843 Diagnosis: Relevant medical/social history: Cultures and sensitivities: Other labs: Assessment: IBW (kg): 61.60 Dosing wt(kg): 74.843 Estimated Creatinine clearance (ml/min): 50.2 CRCL method: Cockcroft and Gault using ibw(default). Drug selected: Vancomycin Loading dose (mg): 0 Vd (liters): 67.4 (factor used: 0.9 L/kg) Jacob (hr-1): 0.046 Half life (hrs): 15.07 Recommended dose: 1250 mg Interval: 18 hrs Infusion time (hrs): 1.5 Predicted peak (mcg/mL): 31.8 Predicted trough (mcg/mL): 14.89 Total body weight is being used for vancomycin dosing. Renal function is stable [ ] /unstable [ ] Recommendations: Give Vancomycin 1250 mg q 18 hrs with an expected Cpeak of 31.8 mcg/ml and an expected Ctrough of 14.89 mcg/ml Renal dosing of other antibiotics (review renal dosing of other medications and list guidelines here): Thank you for the consult, will continue to follow. Signature: [facility]
[2021-12-16] MEDS: cefepime 2,000 MG in sodium chloride 0.9% (plus) 50 ML 100 MG IV ×3 (00:34→23:33)
[2021-12-16] MEDS: lanolin oint 7 gm 1 APPLIC TOPICAL (00:35)
[2021-12-16] MEDS: vancomycin 1,250 MG/250 ML PIGGYBACK 250 MG IV ×2 (01:07→18:51)
[2021-12-16 01:50] LABS: Glucose Point of Care 69 mg/dL (70-110)
[2021-12-16 02:56] LABS: Glucose Point of Care 102 mg/dL (70-110)
[2021-12-16 04:18] LABS: Basophils % 0.3 %; Eosinophils % 0.5 %; Hematocrit 35.9 % (37.0-47.0); Hemoglobin 11.4 g/dL (11.5-15.3); Lymphocytes # 0.5 10^3/uL (0.8-4.8); Lymphocytes % 8.4 %; Mean Corpuscular HGB Conc 31.8 g/dL (30.0-36.0); Mean Corpuscular Hemoglobin 30.2 pg (28.0-34.0); Mean Platelet Volume 11.2 fL (7.4-10.4); Monocytes # 0.8 10^3/uL (0.2-0.9); Monocytes % 13.5 %; Nucleated Red Blood Cells % 0 %; Platelet Count 146 10^3/cmm (130-400); Red Blood Count 3.78 10^6/uL (4.1-5.3); Red Cell Distribution Width 14.6 % (12.1-15.1)
[2021-12-16 04:50] LABS: Alanine Aminotransferase 76 U/L (0-33); Albumin Level 3.2 g/dL (3.5-5.2); Alkaline Phosphatase 108 U/L (35-105); Anion Gap 14.3 (5-19); Aspartate Amino Transferase 28 U/L (0-32); Blood Urea Nitrogen 25 mg/dL (8-23); Calcium 8.9 mg/dL (8.5-10.5); Carbon Dioxide 27 mmol/L (22-29); Chloride 100 mmol/L (98-107); Globulin 1.8 g/dL (1.3-4.6); Glucose 96 mg/dL (65-115); Osmolality Calculated 290 mOsm/kg (285-295); Potassium 3.3 mmol/L (3.5-5.1); Sodium 138 mmol/L (136-145); Total Bilirubin 0.8 mg/dL (0.15-1.2)
[2021-12-16 04:51] LABS: Procalcitonin 0.08 ng/mL (0-0.5)
--- NOTE | 2021-12-16 08:11 | ECG_ITS ---
[facility] Test Date: 2021-12-16 Pat Name: Xenia Vivas Department: Room: 279 Gender: Female Stain Wiper: : 1950 Requested By: Derick Hernandez Order Number: [id number] Reading MD: Irma Teran M.D. Measurements Intervals [place] Rate: 86 P: 34 [place]: 180 QRS: 14 QRSD: 118 T: 74 QT: 391 QTc: 470 Interpretive Statements SINUS RHYTHM WITH OCCASIONAL SUPRAVENTRICULAR PREMATURE COMPLEXES MODERATE INTRAVENTRICULAR CONDUCTION DELAY [110+ ms QRS DURATION] NONSPECIFIC T-WAVE ABNORMALITY Compared to ECG 12/15/2021 19:30:29 No significant changes Electronically Signed On 12-16-2021 9:41:58 SAFETY GLASS INSTALLER by Irma Teran M.D. [id number]
[2021-12-16] MEDS: potassium chloride ER 20 mEq Tablet PO (09:02)
[2021-12-16] MEDS: pantoprazole DR 40 mg Tablet PO (09:02)
[2021-12-16 09:14] LABS: Troponin(5th) Baseline 78 ng/L (0-10)
--- NOTE | 2021-12-16 09:47 | ECG_ITS ---
[facility] Test Date: 2021-12-16 Pat Name: Xenia Vivas Department: Room: 279 Gender: Female Frame Stripper And Crusher: : 1950 Requested By: Derick Hernandez Order Number: [id number] Ross MD: Irma Teran M.D. Measurements Intervals [place] Rate: 90 P: 34 [place]: 176 QRS: 7 QRSD: 113 T: 75 QT: 405 QTc: 496 Interpretive Statements SINUS RHYTHM POSSIBLE LEFT ATRIAL ENLARGEMENT [-0.1mV P-WAVE IN V1/V2] MODERATE INTRAVENTRICULAR CONDUCTION DELAY [110+ ms QRS DURATION] NONSPECIFIC ST & T-WAVE ABNORMALITY Compared to ECG 12/16/2021 08:11:33 No significant changes Electronically Signed On 12-16-2021 16:11:01 MANAGER LIGHTING by Irma Teran M.D. [id number]
--- NOTE | 2021-12-16 09:49 | USR_ITS ---
PROCEDURE INFORMATION: Exam: US Duplex Lower Extremity Veins, Bilateral Exam date and time: 12/16/2021 10:29 AM Age: 71 years old Clinical indication: Swelling (edema) of limb; Lower extremity, bilateral; Additional info: Dvt TECHNIQUE: Imaging protocol: Real-time Duplex ultrasound of the bilateral extremities with 2-D francois scale, color Doppler flow and spectral waveform analysis with image documentation. Complete exam focused on the bilateral lower extremity veins. COMPARISON: CT chest abd pel w con* 12/15/2021 8:27 PM FINDINGS: Right deep veins: Unremarkable. The common femoral, femoral, proximal profunda femoral and popliteal veins are patent without thrombus. Normal Doppler waveforms. Normal compressibility and/or augmentation response. Right superficial veins: Saphenofemoral junction is patent without thrombus. Left deep veins: Unremarkable. The common femoral, femoral, proximal profunda femoral and popliteal veins are patent without thrombus. Normal Doppler waveforms. Normal compressibility and/or augmentation response. Left superficial veins: Saphenofemoral junction is patent without thrombus. Soft tissues: Unremarkable. US/CV venous duplex [facility] [id number] IMPRESSION: No evidence of deep vein thrombosis.
[2021-12-16 10:35] LABS: Troponin 5 2HR 80.25 ng/L (0-10)
[2021-12-16 10:41] LABS: Troponin 5 2HR Delta 2.25 ABS# (0-10)
[2021-12-16] MEDS: heparin 5,000 unit/mL INJ 1 mL IV (11:09)
[2021-12-16] MEDS: heparin drip 25,000 UNIT/500 ML PREMIX 21 UNIT IV (11:32)
--- NOTE | 2021-12-16 13:31 | ECG_ITS ---
[facility] Test Date: 2021-12-16 Pat Name: Xenia Vivas Department: Room: 279 Gender: Female Lacemaker: : 1950 Requested By: Derick Hernandez Order Number: [id number] Ross MD: Irma Teran M.D. Measurements Intervals [place] Rate: 91 P: 34 [place]: 156 QRS: 21 QRSD: 113 T: 90 QT: 363 QTc: 447 Interpretive Statements SINUS RHYTHM MODERATE INTRAVENTRICULAR CONDUCTION DELAY [110+ ms QRS DURATION] NONSPECIFIC ST & T-WAVE ABNORMALITY Compared to ECG 12/16/2021 09:50:35 No significant changes Electronically Signed On 12-16-2021 16:06:44 PERIODONTAL ASSISTANT by Irma Teran M.D. [id number]
[2021-12-16 15:14] LABS: Troponin 5 6HR 69.82 ng/L (0-10)
[2021-12-16 15:35] LABS: Troponin 5 6HR Delta -8.18 ng/L (0-12)
--- NOTE | 2021-12-16 15:51 | P.PN_ITS ---
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, she does have a history of breast cancer in remission, status post radiation therapy and lumpectomy Vitals/I&O/Wt Last Vital Signs Temp 98.1 F 12/16/21 11:27 Pulse 88 12/16/21 11:27 Resp 18 12/16/21 11:27 BP 101/61 12/16/21 11:27 Pulse Ox 92 12/16/21 11:27 O2 Del Method 12/16/21 11:27 12/16/21 12/16/21 12/16/21 06:59 14:59 22:59 Intake Total 1280 / 1280 Output Total Balance 1280 / 1280 Weight last 48 hrs Weight 74.843 kg Physical Exam Const: COMMON NORMALS: no acute distress and patient oriented x3 Resp: COMMON NORMALS: normal respiratory effort, No retractions, No use of accessory muscles and clear to auscultation bilaterally AUSCULTATION: clear to auscultation bilaterally Cardio: COMMON NORMALS: regular rate, regular rhythm, S1 normal heart sound present and S2 normal heart sound present RATE: regular rate RHYTHM: regular rhythm HEART SOUNDS: S1 normal heart sound present and S2 normal heart sound present GI: COMMON NORMALS: Normal to inspection, nondistended, normoactive bowel sounds present, non-tender and no masses Extremity: COMMON NORMALS: no pedal edema Neuro: COMMON NORMALS: patient oriented x3 Psych: COMMON NORMALS: mental status grossly normal Data : 12/16/21 04:00 12/16/21 04:00 Micro: Microbiology 12/15/21 23:15 Legionella Urinary Antigen - Final Urine,Voided 12/15/21 21:38 Blood Culture - Preliminary Blood SPECIMEN COLLECTED 12/15/21 19:27 Blood Culture - Preliminary Blood SPECIMEN COLLECTED A&P Assessment and plan (1) Pulmonary embolism: (2) Pneumonia: (3) Systemic lupus erythematosus (SLE) in adult: (4) Immunosuppression: (5) NSTEMI (non-ST elevated myocardial infarction): (6) Systolic CHF: (7) Aortic stenosis: Plan 71-year-old female with SLE, currently on multiple immunomodulators including belimumab (B-cell activation inhibitor), leflunomide and HCQS. Has a history of breast cancer, left-sided, DCIS status postlumpectomy and radiation therapy Presenting with 3-week history of dyspnea shortness of breath, appears to have started after recent COVID infection. She has been on outpatient antibiotics with possibly doxycycline for a pneumonia, however does not know the name of this antibiotic for sure. Presented to the emergency room with generalized weakness, recurrent falls. CT of her chest abdomen and pelvis revealed bilateral multifocal infiltrates, some of which are pleural-based and a right-sided PE. A 2.9 cm lesion with possible cavitation and abscess is also seen. Will admit patient to the hospital for bilateral pneumonia, no improvement on oral antibiotics. Antibiotic treatment initiated with cefepime and vancomycin Check sputum culture MRSA nares, urine bacterial and Legionella antigen. Given that she is on immunomodulators including B-cell activation inhibitors, will evaluate for other atypical causes including invasive fungal infection. Will initiate peripheral work-up with serum Aspergillus galactomannan, urine histoplasma antigen. Check AFB smear and culture. Will likely need further pulmonology evaluation and possible bronchoscopy to ascertain nature of these lesions. Will discuss with pulmonary, pulmonary to see tomorrow, and if and when to perform bronchoscopy She also has a history of breast cancer status post radiation therapy, this could be a factor, possible metastatic lesions Also found to have a small right-sided PE for which we will initiate anticoagulation with Lovenox 1 mg/kg every 12 hours subcutaneously. Switch to heparin drip as there is plans on thoracocentesis Has a left pleural effusion, will consult radiology tomorrow morning for thoracocentesis for cytology, possible malignancy, possible parapneumonic e ffusion Additionally with signs also of fluid overload with bilateral pleural effusions, trace ascites. Check echocardiogram. We will do a venous ultrasound, negative for DVT NSTEMI, 6-hour troponin 69.82, delta -8.18, no acute ST-T wave changes ?1. Normal left ventricular cavity size. Mildly decreased left ?ventricular systolic function. Left ventricular ejection ?fraction is estimated at 45-50 %.? There seems to be septal and ?apical hypokinesis. Grade II diastolic dysfunction, moderately ?elevated filling pressures. ?2. Normal right ventricular size and systolic function. ?3. Moderately thickened and calcified aortic valve.? Moderate ?aortic valve stenosis, peak velocity 3 m/s, peak gradient 37 ?mmHg , mean gradient 17.8 mmHg, KRUPA 0.96 cm squared. [id number] ?aortic valve regurgitation. ?4. Mild mitral and tricuspid valve regurgitation. ?5.? No recent prior studies to compare. -Has moderate aortic valve stenosis -Has elevated BNP, and evidence of systolic CHF with wall motion abnormalities -We will carefully diurese, Lasix 40 IV daily -With wall motion abnormalities elevated troponins aspirin, statin, heparin drip, beta-hollie if blood pressure can tolerate, telemetry monitoring Supplemental 02 to keep saturation >92% recurrent falls: CT head normal. Check orthostatics, no LOC Attestations Medical Necessity Statement*: Patient requires hospitalization for pneumonia, cavitary lung lesion, requiring antibiotic therapy, pulmonary consultation Coding Level of Care Code Acute Quantitative Analyst Marketing for [facility] Fwd Diagnoses Pulmonary embolism I26.99 Pneumonia J18.9 Systemic lupus erythematosus (SLE) in adult M32.9 Immunosuppression D89.9 NSTEMI (non-ST elevated myocardial infarction) I21.4 Systolic CHF I50.20 Aortic stenosis I35.0
[2021-12-16] MEDS: aspirin 81 mg EC Tablet PO (16:12)
[2021-12-16] MEDS: FUROsemide 10 mg/mL SDV 4mL 40 MG IVP (16:25)
[2021-12-16 19:25] LABS: Partial Thromboplastin Time 114.7 SECONDS (23.9-36.7)
[2021-12-16] MEDS: atorvastatin 40 mg Tablet PO (22:20)
[2021-12-17] VITALS (9 sets, daily range): BP systolic 95–109; BP diastolic 51–69; PULSE 82–106; RESP 16–17; TEMP 36.4–36.7; O2SAT 88–94
[2021-12-17 02:51] LABS: INR 1.17 (0.8-1.2)
[2021-12-17 03:01] LABS: Partial Thromboplastin Time 109.6 SECONDS (23.9-36.7)
--- NOTE | 2021-12-17 04:20 | PC.NURSE ---
PORT ACCESSED FOR LABS, UNDER DR. PARISI'S APPROVAL.
[2021-12-17 04:28] LABS: Basophils % 0.6 %; Eosinophils % 0.4 %; Lymphocytes # 0.8 10^3/uL (0.8-4.8); Lymphocytes % 15.9 %; Mean Corpuscular HGB Conc 31.6 g/dL (30.0-36.0); Mean Corpuscular Hemoglobin 30.5 pg (28.0-34.0); Mean Corpuscular Volume 96.4 fl (81-99); Mean Platelet Volume 10.7 fL (7.4-10.4); Monocytes # 0.9 10^3/uL (0.2-0.9); Monocytes % 17.3 %; Neutrophils # 3.28 10^3/uL (1.8-7.7); Neutrophils % 65.2 %; Nucleated Red Blood Cells % 0 %; Platelet Count 129 10^3/cmm (130-400); Red Blood Count 3.94 10^6/uL (4.1-5.3); Red Cell Distribution Width 14.7 % (12.1-15.1)
[2021-12-17 05:11] LABS: Alanine Aminotransferase 59 U/L (0-33); Albumin Level 2.6 g/dL (3.5-5.2); Alkaline Phosphatase 89 U/L (35-105); Aspartate Amino Transferase 22 U/L (0-32); Blood Urea Nitrogen 15 mg/dL (8-23); C Reactive Protein 30.8 mg/L (0.0-4.9); Calcium 8.3 mg/dL (8.5-10.5); Carbon Dioxide 23 mmol/L (22-29); Chloride 102 mmol/L (98-107); Globulin 2.1 g/dL (1.3-4.6); Glucose 75 mg/dL (65-115); Magnesium 1.7 mg/dL (1.7-2.3); Osmolality Calculated 284 mOsm/kg (285-295); Sodium 137 mmol/L (136-145); Total Bilirubin 0.8 mg/dL (0.15-1.2); Total Protein 4.7 g/dL (6.6-8.7)
--- NOTE | 2021-12-17 07:00 | P.CONIM_ITS ---
Providers/Reason For Consult Consulting Physician/Specialty*: Colin Charles MD/Pulmonology Reason for Consult*: bilateral consolidations on CT chest Requesting Physician: Derick Hernandez MD Attending Physician: Derick Hernandez MD Primary Care Provider: Jay Juarez DO History of Present Illness History of Present Illness Xenia Vivas is a 71 year old female with a past medical history of SLE currently on belimumab. HCQS, leflunomide presenting to the emergency room with history of recent recurrent falls at home.? On admission pt was complaining of dyspnea, persistent cough, generalized fatigue, malaise, orthostasis dizziness for last 3 weeks. ? She saw her moisture conditioner operator and primary care provider and was diagnosed with a pneumonia for which she has been on antibiotics.? Does not recall the name but possibly this is doxycycline.? She also gives history of COVID a month ago following which she has developed anosmia, abnormal taste and has had a persistent cough since then. No injuries have resulted from these falls. 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 In the ED, she was saturationg > 90% On room air. . On admission, chest x-ray with new nodular density in the left midlung suggestive of pneumonia versus neoplasm.? Follow-up CT of the chest was performed which showed bilateral multilobar nodular consolidations likely consistent with a pneumonia.? 2.79 cm nodular consolidation in the anterior left upper lobe also shows an additional cavitation.? Small abscess could not be excluded.? She had moderate left and small right pleural effusions. Also has right side PE. ? Also signs of mild pelvic ascites, body wall edema and old T11 L1-L2 compression fractures.? Abnormalities on lab testing include elevated BNP. Ct head normal. Pulmonary consulted for possible bronchoscopy to ascertain nature of these lesions.? I have seen patient at bedside today-she reported her feeling a little bit better and able to walk by herself to the restroom Her daughter is at bedside Reported not feeling well for the last 3 weeks and has been seeing PCP and received course of doxycycline as well as azithromycin and p.o. steroid without any improvement Reported being diagnosed with breast cancer in 2005 and she is in remission-the port was placed in 2018 for her IV lupus medications Reported having appetite and will get her meal after IR guided thoracentesis which is scheduled shortly Review of Systems General: Reports: 10 or more systems reviewed and unremarkable except in HPI and below Medications/Allergies Home Medications Medication Instructions Recorded Confirmed Last Taken Type aspirin 325 mg tablet 325 mg PO DAILY 02/08/19 12/16/21 Unknown History belimumab 200 mg/mL subcutaneous 200 mg SUBCUT Q7D 02/08/19 12/16/21 Unknown History auto-injector (Benlysta) calcium carbonate 600 mg calcium 600 mg PO DAILY 02/08/19 12/16/21 Unknown History (1,500 mg) tablet (Calcium) cholecalciferol (vitamin D3) 25 1,000 unit PO DAILY 02/08/19 12/16/21 Unknown History mcg (1,000 unit) capsule dextran 70-hypromellose (PF) 0.1 1 drop ophthalmic (eye) ONCE 02/08/19 12/16/21 Unknown History %-0.3 % eye drops in a dropperette (Natural Tears (PF)) omega-3 fatty acids 1,000 mg 1,000 mg PO DAILY 02/08/19 12/16/21 Unknown History capsule (Fish Oil Concentrate) potassium gluconate 595 mg (99 mg) 595 mg PO DAILY 02/08/19 12/16/21 Unknown History tablet,extended release atorvastatin 20 mg tablet 20 mg PO DAILY 03/16/19 12/16/21 Unknown History escitalopram oxalate 10 mg tablet 10 mg PO DAILY 03/16/19 12/16/21 Unknown History hydroxychloroquine 200 mg tablet 200 mg PO DAILY 03/16/19 12/16/21 Unknown History leflunomide 20 mg tablet 20 mg PO DAILY 03/16/19 12/16/21 Unknown History zinc 50 mg tablet 50 mg PO DAILY 09/14/20 12/16/21 Unknown History isosorbide mononitrate 30 mg 15 mg PO DAILY #15 tabs 11/26/21 12/16/21 Unknown Rx tablet,extended release 24 hr metoprolol succinate 25 mg 12.5 mg PO DAILY #15 tabs 11/28/21 12/16/21 Unknown Rx tablet,extended release 24 hr Benlysta 200 INJECTION DIRECTED 12/16/21 Unknown History albuterol sulfate 90 mcg/actuation 2 puff inhalation Q4H PRN 12/16/21 12/16/21 Unknown History aerosol inhaler Shortness Of Breath amitriptyline 50 mg tablet 50 mg PO BEDTIME 12/16/21 12/16/21 Unknown History omeprazole 40 mg capsule,delayed 40 mg PO DAILY 12/16/21 12/16/21 Unknown History release prednisone 10 mg tablet 10 mg PO DAILY 12/16/21 12/16/21 Unknown History vitamin E 400 unit tablet 400 unit PO DAILY 12/16/21 12/16/21 Unknown History Allergies Allergy/AdvReac Type Severity Reaction Status Date / Time Penicillins Allergy Severe swelling Verified 08/24/19 14:38 Sulfa (Sulfonamide Allergy Severe rash Verified 08/24/19 14:38 Antibiotics) Current Medications Generic Name Dose Route Start Last Admin Trade Name Geovanyq PRN Reason Stop Dose Admin Aspirin 81 mg 12/16/21 16:00 12/16/21 16:12 Aspirin 81 Mg Ec Tablet PO 81 mg DAILY YUNG Administration Atorvastatin Calcium 40 mg 12/16/21 21:00 12/16/21 22:20 Atorvastatin 40 Mg Tablet PO 40 mg BEDTIME YUNG Administration Furosemide 40 mg 12/16/21 16:00 12/16/21 16:25 Furosemide 10 Mg/Ml Sdv 4ml IVP 40 mg Q24H YUNG Administration Heparin Sodium (Porcine) 0 unit 12/16/21 09:53 12/16/21 11:09 Heparin 5,000 Unit/Ml Inj 1 Ml IV 3,700 unit PRN PRN Administration Heparin weight-base protocol Protocol Cefepime HCl 2,000 mg/ Sodium 50 mls @ 100 mls/hr 12/15/21 23:30 12/16/21 23:33 Chloride IV 100 mls/hr Q12H YUNG Administration Protocol Vancomycin/PEG/NADA/Lysine/Water 1,250 mg in 250 mls @ 250 mls/hr 12/16/21 01:00 DOCUMENT PHOTOGRAPHER 12/16/21 18:51 Vancocin IV 250 mls/hr Q18H YUNG Administration Heparin Sodium/Sodium Chloride 25,000 unit in 500 mls @ 0 mls/hr 12/16/21 10:00 12/16/21 20:43 Heparin Drip IV 11.36 unit/kg/hr .Q0M YUNG 17 mls/hr Titration Protocol Per Protocol Lanolin 1 applic 12/16/21 00:23 12/16/21 00:35 Lanolin Oint 7 Gm TOPICAL 1 applic PRN PRN Administration DRYNESS Pantoprazole Sodium 40 mg 12/16/21 09:00 12/16/21 09:[address] 40 Mg Tablet PO 40 mg DAILY YUNG Administration PFSH Acute PFSH: Medical History History of breast cancer History of pulmonary hypertension History of TIA (transient ischemic attack) Hx of radiation therapy Hyperlipidemia LDL goal <100 Immunosuppression Osteopenia Other specified disorders involving the immune mechanism, not elsewhere classified Port-A-Cath in place 03/2016 Systemic lupus erythematosus (SLE) in adult Systemic lupus erythematosus, unspecified Varicose veins of bilateral lower extremities with other complications Vitamin D deficiency, unspecified Surgical History H/O brain surgery H/O lumpectomy 2007 History of hysterectomy 1981 S/P arthroscopy of shoulder Family History Other Cancer Hyperlipidemia Migraine headache Osteoarthritis Rheumatoid arthritis Stroke Social History Smoking and tobacco status: never smoked Alcohol intake: current Alcohol intake frequency: 3 or more drinks per day Alcohol type: wine History of recent travel: No Vitals/I&O/Wt Last Vital Signs Temp 97.7 F 12/17/21 04:00 Pulse 90 12/17/21 05:16 Resp 17 12/17/21 04:00 BP 106/69 12/17/21 04:00 Pulse Ox 90 12/17/21 04:00 O2 Del Method 12/16/21 20:38 12/16/21 12/17/21 12/17/21 22:59 06:59 14:59 Intake Total 832.85 / 2112.85 Output Total 2850 / 2850 300 / 3150 Balance -2017.15 / -737.15 -300 / -1037.15 Weight last 48 hrs Weight 165 lb Physical Exam Narrative: General: alert, NAD HEENT: conj clear, EOMI, PERRL, mmm, Neck: supple, no meningismus Heme: no cervical LAP Pulmonary: CTAB, no wheezing, rhonchi, crackles Cardiovascular: rrr, nl s1s2, no mrg Abdomen: soft, nt, nd, no r/g, bs+ Extremities: pulses +, no edema, no c/c : no CVA tenderness Skin: intact, no rash MSK: no back or neck pain Neurologic: grossly intact Data : 12/17/21 04:14 12/17/21 04:14 Other Labs: Radiology Impressions Head CT 12/15/21 18:52 IMPRESSION: No acute intracranial finding. Foot X-Ray 12/15/21 20:00 IMPRESSION: No acute fracture. Chest/Abdomen/Pelvis CT 12/15/21 20:02 IMPRESSION: 1. Findings suspicious for a small pulmonary embolus in a right lower lobe artery branch. 2. Bilateral multilobar nodular consolidations is most likely pneumonia. 3. 2.9 cm nodular consolidation in the anterior left upper lobe with a small cavitation. This could represent pneumonia with a small abscess. A septic embolus or malignant neoplasm are considered less likely. Close CT follow-up to document resolution recommended. 4. Moderate left and small right pleural effusions. IMPRESSION: 1. No acute findings. 2. Mild nonspecific pelvic ascites. 3. Mild body wall edema. 4. Age indeterminate T11, L1, and L2 compression fractures. ADDENDUM: 12/15/212112 THIS REPORT CONTAINS FINDINGS THAT MAY BE CRITICAL TO PATIENT CARE. The findings were verbally communicated via telephone conference with SALBADOR MENDEZ at 9:11 PM CDT on 12/15/2021. The findings were acknowledged and understood. Venous Duplex 12/16/21 09:49 IMPRESSION: No evidence of deep vein thrombosis. Thoracentesis Ultrasound 12/17/21 09:51 IMPRESSION: 1. Uncomplicated ultrasound-guided thoracentesis with removal of 20 cc fluid sent to the laboratory for further analysis. 2. No large accessible pocket of fluid was visualized. Attempted to obtain enough fluid for laboratory requests. Chest X-Ray 12/17/21 16:24 IMPRESSION: 1. Negative for infiltrate. 2. Right-sided Port-A-Cath. 3. Cardiomegaly. 4. Emphysematous changes. Laboratory Results WBC 5.0 10^3/uL (4.0-10.0) 12/17/21 04:14 RBC 3.94 10^6/uL (4.1-5.3) L 11/07/22 04:14 Hgb 12.0 g/dL (11.5-15.3) 12/17/21 04:14 Hct 38.0 % (37.0-47.0) 12/17/21 04:14 MCV 96.4 fl (81-99) 12/17/21 04:14 MCH 30.5 pg (28.0-34.0) 12/17/21 04:14 MCHC 31.6 g/dL (30.0-36.0) 12/17/21 04:14 RDW 14.7 % (12.1-15.1) 12/17/21 04:14 Plt Count 129 10^3/cmm (130-400) L 12/17/21 04:14 MPV 10.7 fL (7.4-10.4) H 12/17/21 04:14 Neut % (Auto) 65.2 % 12/17/21 04:14 Lymph % (Auto) 15.9 % 12/17/21 04:14 [place] % (Auto) 17.3 % 12/17/21 04:14 Eos % (Auto) 0.4 % 12/17/21 04:14 Baso % (Auto) 0.6 % 12/17/21 04:14 Neut # (Auto) 3.28 10^3/uL (1.8-7.7) 12/17/21 04:14 Lymph # (Auto) 0.8 10^3/uL (0.8-4.8) 12/17/21 04:14 [place] # (Auto) 0.9 10^3/uL (0.2-0.9) 12/17/21 04:14 Eos # (Auto) 0.0 10^3/uL (0.0-0.8) 12/17/21 04:14 Baso # (Auto) 0.0 10^3/uL (0.0-0.1) 12/17/21 04:14 Nucleated RBC % (auto) 0 % 12/17/21 04:14 Nucleated RBCs # 0.0 /100WBC 12/17/21 04:14 PT 14.50 SECONDS (12.1-14.9) 12/17/21 14:50 INR 1.09 (0.8-1.2) 12/17/21 14:50 APTT 109.6 SECONDS (23.9-36.7) H 12/17/21 02:16 Specimen Type Arterial 12/17/21 09:32 Sample Site Radial, right 12/17/21 09:32 ABG pH 7.49 (7.35-7.45) H 12/17/21 09:32 ABG pCO2 39.6 mmHg (35-45) 12/17/21 09:32 ABG pO2 73.1 mmHg (80.0-100.0) L 12/17/21 09:32 ABG HCO3 30.4 mmol/L (22-26) H 12/17/21 09:32 ABG O2 Saturation 95.5 12/17/21 09:32 ABG Base Excess 6.6 mmol/L (-2.0-2.0) H 12/17/21 09:32 [place]er Test Pos 12/17/21 09:32 A-a O2 Gradient 10.4 mmHg (5-10) H 12/17/21 09:32 Hematocrit 39.6 % (37-47) 12/17/21 09:32 Hgb O2 Saturation 93.9 % (95-100) L 12/17/21 09:32 Carboxyhemoglobin 1.4 %THgb (0.4-20.1) 12/17/21 09:32 Methemoglobin 0.2 % (0.4-1.5) L 12/17/21 09:32 Total Hemoglobin 12.9 g/dL (12-16) 12/17/21 09:32 Sodium 138.0 mmol/L (131-143) 12/17/21 09:32 Potassium 2.8 mmol/L (3.5-5.0) L 12/17/21 09:32 Glucose 73.0 mg/dL (70-115) 12/17/21 09:32 Ionized Calcium 1.2 mmol/L (1.1-1.4) 12/17/21 09:32 O2 Delivery Device Nc 12/17/21 09:32 O2 Liters/Min 2.0 % 12/17/21 09:32 FiO2 28.0 % 12/17/21 09:32 Pole Tester ID glc 12/17/21 09:32 Sodium 137 mmol/L (136-145) 12/17/21 04:14 Potassium 3.0 mmol/L (3.5-5.1) L 12/17/21 04:14 Chloride 102 mmol/L (98-107) 12/17/21 04:14 Carbon Dioxide 23 mmol/L (22-29) 12/17/21 04:14 Anion Gap 15.0 (5-19) 12/17/21 04:14 BUN 15 mg/dL (8-23) 12/17/21 04:14 Creatinine 0.9 mg/dL (0.5-0.9) 12/17/21 04:14 GFR Calculation Not Reportable 12/17/21 04:14 Glucose 75 mg/dL (65-115) 12/17/21 04:14 POC Glucose 83 mg/dL (70-110) 12/17/21 14:00 Calculated Osmolality 284 mOsm/kg (285-295) L 12/17/21 04:14 Lactate 2.0 mmol/L (0.5-2.2) 12/15/21 19:27 Calcium 8.3 mg/dL (8.5-10.5) L 12/17/21 04:14 Phosphorus 2.8 mg/dL (2.5-4.5) 12/15/21 19:27 Magnesium 1.7 mg/dL (1.7-2.3) 12/17/21 04:14 Total Bilirubin 0.8 mg/dL (0.15-1.2) 12/17/21 04:14 AST 22 U/L (0-32) 12/17/21 04:14 ALT 59 U/L (0-33) H 12/17/21 04:14 Alkaline Phosphatase 89 U/L (35-105) 12/17/21 04:14 Troponin T Baseline 78 ng/L (0-10) H 12/16/21 08:22 Troponin T 120 Minute 80.25 ng/L (0-10) H 12/16/21 09:58 Delta Troponin T 2.25 ABS# (0-10) 12/16/21 09:58 Troponin T Hi Sens 6Hr 69.82 ng/L (0-10) H 12/16/21 14:40 Troponin T Hi Sens 6Hr Delta -8.18 ng/L (0-12) L 12/16/21 14:40 C-Reactive Protein 30.8 mg/L (0.0-4.9) H 12/17/21 04:14 NT-Pro-B Natriuret Pep 01427 pg/mL (0-125) H 12/17/21 04:14 Total Protein 4.7 g/dL (6.6-8.7) L 12/17/21 04:14 Albumin 2.6 g/dL (3.5-5.2) L 12/17/21 04:14 Globulin 2.1 g/dL (1.3-4.6) 12/17/21 04:14 Procalcitonin 0.10 ng/mL (0-0.5) 12/17/21 04:14 Urine Color Colorless (Yellow) 12/15/21 23:15 Urine Appearance Clear (CLEAR) 12/15/21 23:15 Urine pH 8 (5-7) H 12/15/21 23:15 Ur Specific [place] 1.010 (1.005-1.030) 12/15/21 23:15 Urine Protein Neg (Negative) 12/15/21 23:15 Urine Glucose (UA) Norm (Normal) 12/15/21 23:15 Urine Ketones Negative (Negative) 12/15/21 23:15 Urine Blood Neg (Negative) 12/15/21 23:15 Urine Nitrate Negative (Negative) 12/15/21 23:15 Urine Bilirubin Neg (Negative) 12/15/21 23:15 Prot Sulfosalicylic Acd Negative (Negative) 12/15/21 23:15 Urine Urobilinogen Norm mg/dL (Negative) 12/15/21 23:15 Ur Leukocyte Esterase Negative (Negative) 12/15/21 23:15 Micro: Microbiology 12/15/21 21:38 Blood Culture - Preliminary Blood NEGATIVE TO DATE 12/15/21 19:27 Blood Culture - Preliminary Blood NEGATIVE TO DATE 12/15/21 23:15 Bacterial Antigens - Final Urine,Voided 12/16/21 00:45 Gram Stain - Final Sputum - Expectorated Sputum A&P Assessment and plan (1) Cavitary lesion of lung: (2) CHF NYHA class III: (3) Aortic stenosis: (4) Systolic CHF: (5) NSTEMI (non-ST elevated myocardial infarction): (6) Pulmonary embolism: (7) Pneumonia: (8) Systemic lupus erythematosus (SLE) in adult: (9) Immunosuppression: Plan #Bilateral infiltrates on CT scan with a small cavitation in anterior left upper lobe 2.9 cm lesion suspect bacterial pneumonia #Bilateral pleural effusions -right greater than left-s/p IR guided thoracentesis yielded 20 cc fluid-results pending -Primary suspicion is bacterial pneumonia and so she was started on Cefepime and Vancomycin; -Urine bacterial and Legionella antigen were negative, MRSA nares still pending, sputum gram stain showed gram-positive cocci in chains and clusters-cultures pending -Patient reported subjective improvement in her energy and able to ambulate independently to restroom today and also reported improvement in appetite -However given her history of being on immunomodulators including B-cell activation inhibitors for SLE, atypical causes including invasive fungal infection/TB were considered in the differential and accordingly peripheral work-up with serum Aspergillus galactomannan, urine histoplasma antigen,AFB smear and culture were sent-results pending -Another big concern-given history of breast cancer status post radiation therap y, could these be any metastatic lesions.-Patient herself denied any smoking history. -I would recommend to continue antibiotics for now and follow-up with atypical infection work-up-if patient clinically responds and improves while in the hospital-I would repeat CT chest in 4 to 6 weeks to check for resolution of lesions; if they still persist then we will plan for outpatient PET/CT/biopsies to rule out malignancy -Suspect bilateral pleural effusions again be secondary to systolic CHF-however IR guided thoracentesis was requested to rule out parapneumonic effusion in the setting of ongoing pneumonia and results are pending # small right-sided PE -Currently on heparin drip - Venous ultrasound, negative for DVT. #Systolic CHF and moderate aortic stenosis on echocardiogram-suspect demand ischemia from ongoing sepsis -Echo showed Mildly decreased left ?ventricular systolic function. LVEF is estimated at 45-50 %.? There seems to be septal and ?apical hypokinesis. Grade II diastolic dysfunction, moderately ?elevated filling pressures. Moderately thickened and calcified aortic valve.? Moderate ?aortic valve stenosis, peak velocity 3 m/s, peak gradient 37 ?mmHg , mean gradient 17.8 mmHg, KRUPA 0.96 cm squared. [id number] ?aortic valve regurgitation. -Prior echocardiogram in May 2016 with LVEF of possibly 55% with slightly hypokinetic basal anteroseptal segment in a technically difficult study -?EKG with sinus rhythm with intraventricular conduction delay and nonspecific ST and T wave abnormality.? -Significantly elevated BNP 32,000, she was started on Lasix 40 IV daily and currently net -2.7 L -Cardiology consulted and recommended aspirin, statin, low-dose metoprolol and will plan on stress test after treating underlying sepsis Medical condition, labs, investigations and plan of care-everything explained in detail to the patient and her daughter at bedside. Recommendations conveyed to hospitalist taking care of the patient Consult Attestations Medical Necessity Statement: Receiving antibiotics for suspected pneumonia- Time Spent in Patient Care: Greater than 35 minutes (>than 50% of time spent in counselling and/or direct pt care on unit) . Coding Level of Care Code New Pt Acute Time Motion Analyst for Chg Fwd Patient Type New History Comprehensive Exam Comprehensive Medical Decision Making Moderate Complexity Diagnoses Cavitary lesion of lung J98.4 CHF NYHA class III I50.9 Aortic stenosis I35.0 Systolic CHF I50.20 NSTEMI (non-ST elevated myocardial infarction) I21.4 Pulmonary embolism I26.99 Pneumonia J18.9 Systemic lupus erythematosus (SLE) in adult M32.9 Immunosuppression D89.9 Time Spent (min) 55
[2021-12-17 09:40] LABS: ABG PCO2 39.6 mmHg (35-45); ABG PH Result 7.49 (7.35-7.45); Alveolar-Arterial Oxygen Gradi 10.4 mmHg (5-10); Arterial Blood Gas Hematocrit 39.6 % (37-47); Base Excess ABG 6.6 mmol/L (-2.0-2.0); Blood Gas Allen Test Pos; Blood Gas Operator Identificat glc; Blood Gas Sample Site Radial, right; Blood Gas Sample Type Arterial; Carboxyhemoglobin 1.4 %THgb (0.4-20.1); HCO3 ABG 30.4 mmol/L (22-26); HGB O2 Sat 93.9 % (95-100); Ionized Calcium Level - ABG 1.2 mmol/L (1.1-1.4); Methemoglobin 0.2 % (0.4-1.5); Oxygen Device NC; Oxygen Saturation ABG 95.5; PO2 ABG 73.1 mmHg (80.0-100.0); Potassium Level - ABG 2.8 mmol/L (3.5-5.0); Total Hemoglobin 12.9 g/dL (12-16)
--- NOTE | 2021-12-17 09:51 | US_ITS ---
WS: [id number] ULTRASOUND-GUIDED THORACENTESIS CLINICAL INFORMATION: left pleural effuison COMPARISON: None. PROCEDURE: Informed consent: The risks, benefits, and alternatives of the procedure were discussed with the zay ent. Verbal and written consent was obtained. Timeout: A timeout was performed to confirm the correct patient, procedure, and site. The largest acc essible pocket of fluid is visualized. Atelectatic lung overlies some of the imaging windows. Thorace ntesis performed in attempt to obtain fluid for requested tests. Site: LEFT Preparation: A suitable skin site was identified. The patient was prepped and draped in usual sterile fashion. Lidocaine 1% was used for local anesthesia. A small amount approximately 20 cc of tomy-col ored fluid was obtained with intermittent drainage. Fluid ceased flowing at this point and catheter w as removed. Fluid will be be sent for requested diagnostic tests. Catheter: 4 [place] One-Step catheter. Fluid Volume: 20 ml Color: Tomy Fluid sent to the laboratory for further analysis. Complications: None. US/ thoracentesis [id number] IMPRESSION: 1. Uncomplicated ultrasound-guided thoracentesis with removal of 20 cc fluid s ent to the laboratory for further analysis. 2. No large accessible pocket of fluid was visualized. Attempted to obtain lucia ugh fluid for laboratory requests.
--- NOTE | 2021-12-17 12:15 | PC.CHAP ---
Pastoral Care Encounter/Spiritual Assessment Type of Contact [] Declined director hematology visit [] Patient/Family/Request visit [] Outpatient visit [] Follow-up visit [] Physician referral [] Code/Alert [x] Routine visit [] Staff referral [] Actively dying [] Patient sleeping [] Family support [] [] Out of room [] Palliative care [] [] Receiving care in room [] Pre-surgical visit [] Trauma [] Long length of stay [] ICU visit [] Other: Relational/Emotional Strength [] Patient feels connected with others/family/visitors/staff [] Distress [] Loneliness/isolation [] Abandonment Spirituality of Patient [x] Person of Bhavna [] Attends Sikhism of their Bhavna [x] Believes in Prayer [] Reads Bible or Alevism materials [x] There are Spiritual issues to be addressed 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 Interventions [x] Prayer x[] Active listening [] Non-anxious presence [] Spiritual/emotional support [] Crisis/trauma care [x] Spiritual counseling [] Bereavement support [] Provided bereavement packet [] Provided Bible/devotional materials [] Provided toy/stuffed animal, coloring book to patient or family member [] Provided Communion [] Anointing/[place] [] Salvation [x] Completed spiritual assessment [] Other: Impact on Illness or Injury [] Angry [] Fearful [] Anxious [] Often cries [] Exhaustion [] Unable to work [] Unable to attend hindu [] Unable to walk/stand [] Unable to read [] Unable to drive [] Unable to eat/drink [] Unable to sleep [] Unable to be with family [] Patient intubated [] Other: Summary patient lonly Time spent with patient 10o min
--- NOTE | 2021-12-17 12:51 | P.CONIM_ITS ---
Providers/Reason For Consult Consulting Physician/Specialty*: Dr. Teran, cardiology Reason for Consult*: Cardiomyopathy newly diagnosed. Attending Physician: Derick Hernandez MD Primary Care Provider: Jay Juarez DO History of Present Illness History of Present Illness Xenia Vivas is a 71 year old female with past medical history of SLE on belimumab hydroxychloroquine and leflunomide, history of breast cancer status postlumpectomy and radiation therapy in 2005 and since then has been malignancy free. She was hospitalized with complaints of persistent productive cough, worsening shortness of breath, lower extremity edema generalized fatigue and malaise. She has been having the symptoms on and off since since October and has taken 2-3 rounds of antibiotics including doxycycline and azithromycin. She was tested for COVID as well which was negative. On admission chest x-ray showed known new nodular density in left midlung. Follow-up CT of chest showed bilateral multilobar nodular c consolidation and some evidence of cavitation. Moderate left and small right pleural effusion along with small right-sided PE. She also underwent echocardiogram and was foun d to have heart failure with mildly reduced ejection fraction with LVEF estimated 45 to 50% with possible septal and apical hypokinesis. Patient denies having any chest pains. EKG with sinus rhythm with intraventricular conduction delay and nonspecific ST and T wave abnormality. She used to follow-up with Dr. Diaz for varicose vein and hyperlipidemia. Prior echocardiogram in May 2016 with LVEF of possibly 55% with slightly hypokinetic basal anteroseptal segment in a technically difficult study. Review of Systems General: Reports: 10 or more systems reviewed and unremarkable except in HPI and below Const: Denies: fever(s), chills or body aches ENMT: Reports: hoarseness; Denies: throat pain or nasal congestion Card: Reports: swelling of feet/ankles and dyspnea on exertion; Denies: chest pain, irregular heart rhythm, lightheadedness, pre-syncope or orthopnea Resp: Reports: productive cough and change in phlegm color (Greenish- yellowish); Denies: dyspnea, non-productive cough, wheezing, pain on inspiration, hemoptysis or chest congestion GI: Denies: abdominal pain, nausea, vomiting, hematemesis, coffee ground emesis, dysphagia, heartburn, diarrhea, constipation, GI cramping, change in stool character, hematochezia or melena : Denies: flank pain, difficulty voiding, dysuria, urinary frequency, urinary urgency, urinary hesitancy or hematuria Musc: Denies: neck pain, back pain, extremity pain, joint swelling, joint warmth or deformity Neuro: Denies: headache(s), numbness in extremities, weakness in extremities, sensory changes, difficulty walking, frequent falls, dizziness, vertigo, behavioral changes, Slurred speech present or seizure-like activity Psych: Denies: anxiety, depression, suicidal ideation or homicidal ideation Endo: Denies: polyuria, polydipsia, tired all the time, cold intolerance or hot flashes Aniket/Lymph: Denies: easy bruising or easy bleeding Medications/Allergies Home Medications Medication Instructions Recorded Confirmed Last Taken Type aspirin 325 mg tablet 325 mg PO DAILY 02/08/19 12/16/21 Unknown History belimumab 200 mg/mL subcutaneous 200 mg SUBCUT Q7D 02/08/19 12/16/21 Unknown History auto-injector (Benlysta) calcium carbonate 600 mg calcium 600 mg PO DAILY 02/08/19 12/16/21 Unknown History (1,500 mg) tablet (Calcium) cholecalciferol (vitamin D3) 25 1,000 unit PO DAILY 02/08/19 12/16/21 Unknown History mcg (1,000 unit) capsule dextran 70-hypromellose (PF) 0.1 1 drop ophthalmic (eye) ONCE 02/08/19 12/16/21 Unknown History %-0.3 % eye drops in a dropperette (Natural Tears (PF)) omega-3 fatty acids 1,000 mg 1,000 mg PO DAILY 02/08/19 12/16/21 Unknown History capsule (Fish Oil Concentrate) potassium gluconate 595 mg (99 mg) 595 mg PO DAILY 02/08/19 12/16/21 Unknown History tablet,extended release atorvastatin 20 mg tablet 20 mg PO DAILY 03/16/19 12/16/21 Unknown History escitalopram oxalate 10 mg tablet 10 mg PO DAILY 03/16/19 12/16/21 Unknown History hydroxychloroquine 200 mg tablet 200 mg PO DAILY 03/16/19 12/16/21 Unknown History leflunomide 20 mg tablet 20 mg PO DAILY 03/16/19 12/16/21 Unknown History zinc 50 mg tablet 50 mg PO DAILY 09/14/20 12/16/21 Unknown History isosorbide mononitrate 30 mg 15 mg PO DAILY #15 tabs 11/26/21 12/16/21 Unknown Rx tablet,extended release 24 hr metoprolol succinate 25 mg 12.5 mg PO DAILY #15 tabs 11/28/21 12/16/21 Unknown Rx tablet,extended release 24 hr Benlysta 200 INJECTION DIRECTED 12/16/21 Unknown History albuterol sulfate 90 mcg/actuation 2 puff inhalation Q4H PRN 12/16/21 12/16/21 Unknown History aerosol inhaler Shortness Of Breath amitriptyline 50 mg tablet 50 mg PO BEDTIME 12/16/21 12/16/21 Unknown History omeprazole 40 mg capsule,delayed 40 mg PO DAILY 12/16/21 12/16/21 Unknown Histor y release prednisone 10 mg tablet 10 mg PO DAILY 12/16/21 12/16/21 Unknown History vitamin E 400 unit tablet 400 unit PO DAILY 12/16/21 12/16/21 Unknown History Allergies Allergy/AdvReac Type Severity Reaction Status Date / Time Penicillins Allergy Severe swelling Verified 08/24/19 14:38 Sulfa (Sulfonamide Allergy Severe rash Verified 08/24/19 14:38 Antibiotics) Current Medications Generic Name Dose Route Start Last Admin Trade Name Freq PRN Reason Stop Dose Admin Aspirin 81 mg 12/16/21 16:00 12/16/21 16:12 Aspirin 81 Mg Ec Tablet PO 81 mg DAILY YUNG Administration Atorvastatin Calcium 40 mg 12/16/21 21:00 12/16/21 22:20 Atorvastatin 40 Mg Tablet PO 40 mg BEDTIME YUNG Administration Furosemide 40 mg 12/16/21 16:00 12/16/21 16:25 Furosemide 10 Mg/Ml Sdv 4ml IVP 40 mg Q24H YUNG Administration Heparin Sodium (Porcine) 0 unit 12/16/21 09:53 12/16/21 11:09 Heparin 5,000 Unit/Ml Inj 1 Ml IV 3,700 unit PRN PRN Administration Heparin weight-base protocol Protocol Cefepime HCl 2,000 mg/ Sodium 50 mls @ 100 mls/hr 12/15/21 23:30 12/16/21 23:33 Chloride IV 100 mls/hr Q12H YUNG Administration Protocol Vancomycin/PEG/NADA/Lysine/Water 1,250 mg in 250 mls @ 250 mls/hr 12/16/21 01:00 HAT [employer]IM [employer]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 12/16/21 18:51 Vancocin IV 250 mls/hr Q18H YUNG Administration Heparin Sodium/Sodium Chloride 25,000 unit in 500 mls @ 0 mls/hr 12/16/21 10:00 12/16/21 20:43 Heparin Drip IV 11.36 unit/kg/hr .Q0M YUNG 17 mls/hr Titration Protocol Per Protocol Lanolin 1 applic 12/16/21 00:23 12/16/21 00:35 Lanolin Oint 7 Gm TOPICAL 1 applic PRN PRN Administration DRYNESS Pantoprazole Sodium 40 mg 12/16/21 09:00 12/16/21 09:[address] 40 Mg Tablet PO 40 mg DAILY YUNG Administration PFSH Acute PFSH: Medical History History of breast cancer History of pulmonary hypertension History of TIA (transient ischemic attack) Hx of radiation therapy Hyperlipidemia LDL goal <100 Immunosuppression Osteopenia Other specified disorders involving the immune mechanism, not elsewhere classified Port-A-Cath in place 03/2016 Systemic lupus erythematosus (SLE) in adult Systemic lupus erythematosus, unspecified Varicose veins of bilateral lower extremities with other complications Vitamin D deficiency, unspecified Surgical History H/O brain surgery H/O lumpectomy 2007 History of hysterectomy 1982 S/P arthroscopy of shoulder Family History Other Cancer Hyperlipidemia Migraine headache Osteoarthritis Rheumatoid arthritis Stroke Social History Smoking and tobacco status: never smoked Alcohol intake: current Alcohol intake frequency: 3 or more drinks per day Alcohol type: wine History of recent travel: No Vitals/I&O/Wt Last Vital Signs Temp 97.7 F 12/17/21 11:30 Pulse 86 12/17/21 11:30 Resp 16 12/17/21 11:30 BP 109/51 12/17/21 11:30 Pulse Ox 93 12/17/21 11:30 O2 Del Method 12/17/21 11:30 12/16/21 12/17/21 12/17/21 22:59 06:59 14:59 Intake Total 832.85 / 2112.85 Output Total 2850 / 2850 300 / 3150 Balance -2017.15 / -737.15 -300 / -1037.15 Weight last 48 hrs Weight 165 lb Physical Exam Narrative: GENERAL: Averagely built and averagely nourished in no acute distress HEENT: Extraocular movement intact. No pallor or icterus. NECK: central trachea, No JVD, No carotid bruit. CARDIOVASCULAR SYSTEM: S1-S2 regular. systolic murmur + RESPIRATORY SYSTEM: Decresed BS at bases. No wheezes or rubs heard. +rhonchi ABDOMEN: Soft, nontender and nondistended. Normal bowel sounds present. EXTREMITIES: No cyanosis or edema. No signs of chronic venous insufficiency. 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 No focal neurological deficits. SKIN: Normal turgor and temperature. No breakdown, rash or nail changes noted. PSYCH: Normal insight and judgment. No suicidal or homicidal ideations. Data : 12/17/21 04:14 12/17/21 04:14 Micro: Microbiology 12/16/21 00:45 Gram Stain - Final Sputum - Expectorated Sputum Sputum Culture - Preliminary 12/15/21 23:55 MRSA Culture - Final Nose 12/15/21 21:38 Blood Culture - Preliminary Blood NEGATIVE TO DATE 12/15/21 19:27 Blood Culture - Preliminary Blood NEGATIVE TO DATE 12/15/21 23:15 Bacterial Antigens - Final Urine,Voided Other data: Transthoracic echocardiogram 15 December 2021 CONCLUSIONS ?1. Normal left ventricular cavity size. Mildly decreased left ?ventricular systolic function. Left ventricular ejection ?fraction is estimated at 45-50 %.? There seems to be septal and ?apical hypokinesis. Grade II diastolic dysfunction, moderately ?elevated filling pressures. ?2. Normal right ventricular size and systolic function. ?3. Moderately thickened and calcified aortic valve.? Moderate ?aortic valve stenosis, peak velocity 3 m/s, peak gradient 37 ?mmHg , mean gradient 17.8 mmHg, KRUPA 0.96 cm squared. [id number] ?aortic valve regurgitation. ?4. Mild mitral and tricuspid valve regurgitation. ?5.? No recent prior studies to compare Right heart cath 11 July 2016 Conclusions Procedure Summary #1 Moderately elevated left-sided filling pressure pulmonary capillary wedge 25 mmHg #2 Upper limit of normal pulmonary artery mean pressure 26 mmHg #3 Moderately elevated right-sided filling pressure RA mean 14 mmHg #4 Normal cardiac output and index A&P Assessment and plan (1) Pneumonia: (2) CHF NYHA class III: Newly diagnosed cardiomyopathy Heart failure with mildly reduced ejection fraction with LVEF of 45 to 50% and with possible septal and apical hypokinesis. -2.7 L since admission after receiving IV Lasix. -Agree with aspirin and statin; low-dose metoprolol added to the regimen -will plan for stress test in next few days based on her clinical progression Plan Elevated troponin without any delta change: This is not type I non-ST elevation [place] ; no chest pains at any time, No EKG changes previous echo (TDS) Possible small PE in right lower lobe arterial branch: On heparin drip for the same Bilateral pleural effusion: Plan for thoracentesis later today Moderate aortic stenosis Mild to moderate aortic regurgitation History of lupus History of breast cancer Dyslipidemia Hypokalemia Consult Attestations Time Spent in Patient Care: 16 - 35 minutes Coding Level of Care Code Acute 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
--- NOTE | 2021-12-17 13:24 | PM.PN ---
Subjective Subjective: She has been seen by cardiology and Dr. Charles pulmonary medicine Patient is n.p.o. for thoracentesis After thoracentesis further decision will be made whether biopsy is needed or not Her EF is 45% 2 hours after thoracentesis we will start her back on heparin drip for PE Vitals/I&O/Wt Last Vital Signs Temp 97.7 F 12/17/21 11:30 Pulse 86 12/17/21 11:30 Resp 16 12/17/21 11:30 BP 109/51 12/17/21 11:30 Pulse Ox 93 12/17/21 11:30 O2 Del Method 12/17/21 11:30 12/16/21 12/17/21 12/17/21 22:59 06:59 14:59 Intake Total 832.85 / 2112.85 Output Total 2850 / 2850 300 / 3150 Balance -2017.15 / -737.15 -300 / -1037.15 Weight last 48 hrs Weight 74.843 kg Physical Exam Narrative: Patient is laying supine No active shortness of breath Orthopnea PND Clinically looks euvolemic No signs of edema of legs Family at the bedside She is currently on room air Scab noticed on her upper lip Patient is pleasant and cooperative Nonfocal neuro exam Diminished breath sounds with mild crackles at the base No active wheezing Data : 12/17/21 04:14 12/17/21 04:14 Micro: Microbiology 12/16/21 00:45 Gram Stain - Final Sputum - Expectorated Sputum Sputum Culture - Preliminary 12/15/21 23:55 MRSA Culture - Final Nose 12/15/21 21:38 Blood Culture - Preliminary Blood NEGATIVE TO DATE 12/15/21 19:27 Blood Culture - Preliminary Blood NEGATIVE TO DATE 12/15/21 23:15 Bacterial Antigens - Final Urine,Voided A&P Assessment and plan (1) Aortic stenosis: (2) Systolic CHF: (3) NSTEMI (non-ST elevated myocardial infarction): (4) Pulmonary embolism: (5) Immunosuppression: (6) Systemic lupus erythematosus (SLE) in adult: Plan Pulmonary cavitary lesion Rule out metastatic lesions versus fungal Fungal studies have been sent Currently on antibiotics Sputum showing gram positive cocci Patient is immunocompromise Afebrile No sign of sepsis pulmonary medicine has been consulted We are waiting for thoracentesis results to decide on bronchoscopy and biopsy NSTEMI: EF 45% moderate aortic valve stenosis follow-up with cardiology recommendations Patch chest pain. No previous history of radiation-induced cardiomyopathy or drug toxicity Right-sided pulmonary embolism I will start her on heparin drip after thoracentesis Left-sided pleural effusion not requiring oxygen this point Bilateral pneumonia? This could be very well related to heart failure slightly reduced EF Currently on low-dose Lasix No leukocytosis, currently on room air, no signs of sepsis She is considered immunocompromised I will keep her on vancomycin and cefepime High BNP clinically she does not look fluid overloaded this could be related to PE EF is slightly reduced low-dose Lasix for now, p.o. 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
[2021-12-17 14:03] LABS: Glucose Point of Care 83 mg/dL (70-110)
[2021-12-17] MEDS: vancomycin 1,250 MG/250 ML PIGGYBACK 250 MG IV (14:54)
[2021-12-17 15:15] LABS: INR 1.09 (0.8-1.2)
--- NOTE | 2021-12-17 16:24 | XRR_ITS ---
PROCEDURE INFORMATION: Exam: XR Chest Exam date and time: 12/17/2021 4:33 PM Age: 71 years old Clinical indication: Device placement; Other: Post thoracentesis; Prior surgery; Surgery date: 6+ months; Surgery type: Port placed approx 2018 for infusions TECHNIQUE: Imaging protocol: Radiologic exam of the chest. Views: 1 view. COMPARISON: CT chest abd pel w con* 12/15/2021 8:27 PM FINDINGS: Tubes, catheters and devices: Right-sided Port-A-Cath. Lungs: Emphysematous changes. Pleural spaces: Unremarkable. No pleural effusion. No pneumothorax. Heart/Mediastinum: Cardiomegaly. Bones/joints: Unremarkable. XR/XR chest 1V portable [id number] IMPRESSION: 1. Negative for infiltrate. 2. Right-sided Port-A-Cath. 3. Cardiomegaly. 4. Emphysematous changes.
[2021-12-17] MEDS: FUROsemide 10 mg/mL SDV 4mL 40 MG IVP (16:43)
[2021-12-17] MEDS: potassium chloride ER 20 mEq Tablet 40 MEQ PO (16:44)
[2021-12-17] MEDS: cefepime 1,000 MG in sodium chloride 0.9% (plus) 50 ML 100 MG IV (16:45)
[2021-12-17 18:16] LABS: Body Fluid Polynuclear #Cells 0.019; Body Fluid WBC 83 /uL; Monocytes # Body Fluid 0.064
[2021-12-17 18:30] LABS: Color, Body Fluid SLIGHT PINK
[2021-12-17 18:31] LABS: Apprearance, Body Fluid CLOUDY
[2021-12-17 18:59] LABS: Albumin Body Fluid 0.5 g/dL; Creatinine Body Fluid 0.48 (0.5-0.9)
[2021-12-17 19:00] LABS: Triglycerides, Pleural Fluid 23 mg/dL
[2021-12-17] MEDS: heparin drip 25,000 UNIT/500 ML PREMIX 12.99 UNIT IV (19:00)
[2021-12-17 19:01] LABS: LDH Pleural Fluid 133 U/L
[2021-12-17 19:09] LABS: Cyto Order Verification Order Verified
[2021-12-17] MEDS: atorvastatin 40 mg Tablet PO (22:00)
[2021-12-17 23:54] LABS: Partial Thromboplastin Time 39.2 SECONDS (23.9-36.7)
[2021-12-18] VITALS (10 sets, daily range): BP systolic 92–101; BP diastolic 50–63; PULSE 70–94; RESP 16–17; TEMP 36.5–36.7; O2SAT 90–97
[2021-12-18] MEDS: heparin 5,000 unit/mL INJ 1 mL IV (01:09)
[2021-12-18] MEDS: cefepime 1,000 MG in sodium chloride 0.9% (plus) 50 ML 100 MG IV ×2 (01:47→15:10)
[2021-12-18] MEDS: heparin drip 25,000 UNIT/500 ML PREMIX 16 UNIT IV (06:48)
[2021-12-18 07:16] LABS: Partial Thromboplastin Time 53.5 SECONDS (23.9-36.7)
[2021-12-18] MEDS: heparin 5,000 unit/mL INJ 1 mL 1500 UNIT IVP (08:24)
[2021-12-18] MEDS: vancomycin 1,250 MG/250 ML PIGGYBACK 250 MG IV (08:25)
--- NOTE | 2021-12-18 08:46 | PC.SOCIAL ---
IMM Update pg 2 of IMM updated and reviewed w/ patient. Copy provided. Copy dated, initialed and placed in chart.
[2021-12-18 08:55] LABS: Basophils % 0.5 %; Eosinophils % 0.3 %; Hematocrit 37.9 % (37.0-47.0); Hemoglobin 12.1 g/dL (11.5-15.3); Lymphocytes # 0.7 10^3/uL (0.8-4.8); Lymphocytes % 17.9 %; Mean Corpuscular HGB Conc 31.9 g/dL (30.0-36.0); Mean Corpuscular Hemoglobin 30.4 pg (28.0-34.0); Mean Corpuscular Volume 95.2 fl (81-99); Mean Platelet Volume 11.2 fL (7.4-10.4); Monocytes # 0.8 10^3/uL (0.2-0.9); Monocytes % 21.2 %; Neutrophils % 59.8 %; Nucleated Red Blood Cells % 0 %; Platelet Count 126 10^3/cmm (130-400); Red Blood Count 3.98 10^6/uL (4.1-5.3); Red Cell Distribution Width 14.8 % (12.1-15.1); White Blood Count 3.7 10^3/uL (4.0-10.0)
[2021-12-18 09:09] LABS: Anion Gap 12.3 (5-19); Blood Urea Nitrogen 15 mg/dL (8-23); Calcium 8.4 mg/dL (8.5-10.5); Carbon Dioxide 28 mmol/L (22-29); Chloride 99 mmol/L (98-107); Glucose 71 mg/dL (65-115); Osmolality Calculated 281 mOsm/kg (285-295); Potassium 3.3 mmol/L (3.5-5.1); Sodium 136 mmol/L (136-145)
--- NOTE | 2021-12-18 09:11 | ECG_ITS ---
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 Interpretive Statements NAME OF STUDY: LEXISCAN SESTAMIBI STRESS TEST INDICATION: Newly Diagnosed Cardiomyopathy PROCEDURE: At the baseline, the blood pressure was 112/53 mmHg with a heart rate of 85 bpm and oxygen saturation 94%. The electrocardiogram showed sinus rhythm, normal axis. Intraventricular conduction delay and nonspecific ST-T wave changes. The Lexiscan was infused over a period of 20 seconds. A total of 0.4 milligrams of Lexiscan was infused. The stress phase was continued for a total of 5 minutes. Heart rate at the end of the stress phase was 88 bpm, oxygen saturation 95% with a blood pressure of 115/52 mmHg. The EKG at the peak infusion revealed sinus rhythm with no significant ST-T wave changes. The study was terminated due to protocol completion. Sestamibi was injected 20 seconds after the Lexiscan infusion. Blood pressure at the end of the recovery phase was 114/49 mmHg, oxygen saturation 94% with a heart rate of of 88 beats per minute. CONCLUSION: 1. No significant EKG changes with the LexiScan infusion. 2. No LexiScan induced chest pain or cardiac arrhythmia. 3. Normal blood pressure and heart rate response. 4. Sestamibi/sestamibi perfusion scan pending; see separate report. Electronically Signed On 12-22-2021 12:41:23 PRODUCT TRAINER by Irma Teran M.D. [id number]
[2021-12-18 09:55] LABS: Vitamin B12 682 pg/mL (232-1245)
[2021-12-18] MEDS: pantoprazole DR 40 mg Tablet PO (10:11)
[2021-12-18] MEDS: hydroxychloroquine 200 mg Tablet PO (10:11)
[2021-12-18] MEDS: aspirin 81 mg EC Tablet PO (10:12)
[2021-12-18] MEDS: potassium chloride ER 20 mEq Tablet 40 MEQ PO (10:12)
[2021-12-18] MEDS: predniSONE 10 mg Tablet PO (10:13)
[2021-12-18] MEDS: atorvastatin 40 mg Tablet 20 MG PO (10:14)
--- NOTE | 2021-12-18 14:54 | P.PN_ITS ---
Subjective Subjective: Dr. Sue will see her at the bedside For now I have added stress test for tomorrow No active chest pain or shortness of breath Patient is an orthopedic better Low blood pressure Held Lasix and metoprolol Transudative fluid noted on pleural fluid Dr. Charles is recommending outpatient PET scan and then bronchoscopy if it is positive Vitals/I&O/Wt Last Vital Signs Temp 97.8 F 12/18/21 07:48 Pulse 85 12/18/21 11:46 Resp 16 12/18/21 11:46 BP 93/54 12/18/21 11:46 Pulse Ox 95 12/18/21 11:46 O2 Del Method 12/18/21 11:46 12/17/21 12/18/21 12/18/21 22:59 06:59 14:59 Intake Total 967.15 / 967.15 170.289 / 1137.439 515.2 / 515.2 Balance 967.15 / 967.15 170.289 / 1137.439 515.2 / 515.2 Physical Exam Narrative: Awake and alert Euvolemic Hemodynamically stable Family at the bedside S1, S2 pansystolic murmur, Currently is on 2 L of oxygen Abdomen soft Variable S1-S2 Data : 12/18/21 08:04 12/18/21 08:04 Micro: Microbiology 12/16/21 00:45 Gram Stain - Final Sputum - Expectorated Sputum Sputum Culture - Final 12/16/21 16:25 Gram Stain - Final Pleural Fluid Body Fluid Culture - Preliminary A&P Assessment and plan (1) Cavitary lesion of lung: (2) CHF NYHA class III: (3) Aortic stenosis: (4) Systolic CHF: (5) NSTEMI (non-ST elevated myocardial infarction): (6) Pulmonary embolism: (7) Pneumonia: Plan I have added stress test for tomorrow 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 Will touch base with cardiology for further recommendations whether she will go for coronary angiogram directly Acute hypoxia requiring 2 L Will do home O2 evaluation before discharge PE continue heparin until discharge, will give her Eliquis at the time discharge Pleural fluid is transudative related with CHF Start reduced action fraction heart exacerbation Currently euvolemic Low blood pressure held Lasix and metoprolol Full code Cardiac diet DVT prophylaxis on board Attestations Medical Necessity Statement*: Continue medical management Time Spent in Patient Care: 30 Coding Level of Care Code Acute Nature Photographer for Chg Fwd Diagnoses Cavitary lesion of lung J98.4 CHF NYHA class III I50.9 Aortic stenosis I35.0 Systolic CHF I50.20 NSTEMI (non-ST elevated myocardial infarction) I21.4 Pulmonary embolism I26.99 Pneumonia J18.9
[2021-12-18 17:14] LABS: Partial Thromboplastin Time 95.8 SECONDS (23.9-36.7)
--- NOTE | 2021-12-18 18:38 | P.PN_ITS ---
Subjective Subjective: She feels better. No chest pain. Medications: Reviewed: Yes Vitals/I&O/Wt Last Vital Signs Temp 97.8 F 12/18/21 15:47 Pulse 88 12/18/21 15:47 Resp 16 12/18/21 15:47 BP 92/58 12/18/21 15:47 Pulse Ox 96 12/18/21 15:47 O2 Del Method 12/18/21 15:47 12/18/21 12/18/21 12/18/21 06:59 14:59 22:59 Intake Total 220.289 / 1187.439 515.2 / 515.2 Output Total 800 / 800 Balance 220.289 / 1187.439 515.2 / 515.2 -800 / -284.8 Physical Exam Narrative: GENERAL: Averagely built and averagely nourished in no acute distress HEENT: Extraocular movement intact. No pallor or icterus. NECK: central trachea, No JVD, No carotid bruit. CARDIOVASCULAR SYSTEM: S1-S2 regular. systolic murmur + RESPIRATORY SYSTEM: Decresed BS at bases. No wheezes or rubs heard. +rhonchi ABDOMEN: Soft, nontender and nondistended. Normal bowel sounds present. EXTREMITIES: No cyanosis or edema. No signs of chronic venous insufficiency. 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 No focal neurological deficits. SKIN: Normal turgor and temperature. No breakdown, rash or nail changes noted. PSYCH: Normal insight and judgment. No suicidal or homicidal ideations. Data : 12/18/21 08:04 12/18/21 08:04 Micro: Microbiology 12/16/21 00:45 Gram Stain - Final Sputum - Expectorated Sputum Sputum Culture - Final 12/16/21 16:25 Gram Stain - Final Pleural Fluid Body Fluid Culture - Preliminary A&P Assessment and plan (1) Pneumonia: (2) CHF NYHA class III: Newly diagnosed cardiomyopathy Heart failure with mildly reduced ejection fraction with LVEF of 45 to 50% and with possible septal and apical hypokinesis.. -Agree with aspirin and statin -will plan for stress test in morning and decision for [facility] based on that. Plan Elevated troponin without any delta change: This is not type I non-ST elevation [place] ; no chest pains at any time, No EKG changes previous echo (TDS) Possible small PE in right lower lobe arterial branch: On heparin drip for the same Bilateral pleural effusion: Plan for thoracentesis later today Moderate aortic stenosis Mild to moderate aortic regurgitation History of lupus History of breast cancer Dyslipidemia Hypokalemia Attestations Medical Necessity Statement*: needs hospital stay for w/u of cardiomyopathy Coding Level of Care Code Acute First Assistant Manager for Chg Fwd Diagnoses Pneumonia J18.9 CHF NYHA class III I50.9
--- NOTE | 2021-12-18 19:57 | P.PN_ITS ---
Subjective Subjective: pt reported feeling better no new complaints no fevers and wbc 3.7K cultures negative so far yesterday thoracentsis yielded 20 cc transudative fluid Cardiology planning for stress test tomorrow - will continue heparin for now Medications: Reviewed: Yes Vitals/I&O/Wt Last Vital Signs Temp 97.8 F 12/18/21 15:47 Pulse 88 12/18/21 15:47 Resp 16 12/18/21 15:47 BP 92/58 12/18/21 15:47 Pulse Ox 96 12/18/21 15:47 O2 Del Method 12/18/21 15:47 12/18/21 12/18/21 12/18/21 06:59 14:59 22:59 Intake Total 220.289 / 1187.439 515.2 / 515.2 Output Total 800 / 800 Balance 220.289 / 1187.439 515.2 / 515.2 -800 / -284.8 Physical Exam Narrative: General: alert, NAD HEENT: conj clear, EOMI, PERRL, mmm, Neck: supple, no meningismus Heme: no cervical LAP Pulmonary: CTAB, no wheezing, rhonchi, crackles Cardiovascular: rrr, nl s1s2, no mrg Abdomen: soft, nt, nd, no r/g, bs+ Extremities: pulses +, no edema, no c/c : no CVA tenderness Skin: intact, no rash MSK: no back or neck pain Neurologic: grossly intact Data : 12/18/21 08:04 12/18/21 08:04 Other Labs: Radiology Impressions Head CT 12/15/21 18:52 IMPRESSION: No acute intracranial finding. Foot X-Ray 12/15/21 20:00 IMPRESSION: No acute fracture. Chest/Abdomen/Pelvis CT 12/15/21 20:02 IMPRESSION: 1. Findings suspicious for a small pulmonary embolus in a right lower lobe artery branch. 2. Bilateral multilobar nodular consolidations is most likely pneumonia. 3. 2.9 cm nodular consolidation in the anterior left upper lobe with a small cavitation. This could represent pneumonia with a small abscess. A septic embolus or malignant neoplasm are considered less likely. Close CT follow-up to document resolution recommended. 4. Moderate left and small right pleural effusions. IMPRESSION: 1. No acute findings. 2. Mild nonspecific pelvic ascites. 3. Mild body wall edema. 4. Age indeterminate T11, L1, and L2 compression fractures. ADDENDUM: 12/15/212112 THIS REPORT CONTAINS FINDINGS THAT MAY BE CRITICAL TO PATIENT CARE. The findings were verbally communicated via telephone conference with SALBADOR MENDEZ at 9:11 PM CDT on 12/15/2021. The findings were acknowledged and understood. Venous Duplex 12/16/21 09:49 IMPRESSION: No evidence of deep vein thrombosis. Thoracentesis Ultrasound 12/17/21 09:51 IMPRESSION: 1. Uncomplicated ultrasound-guided thoracentesis with removal of 20 cc fluid sent to the laboratory for further analysis. 2. No large accessible pocket of fluid was visualized. Attempted to obtain enough fluid for laboratory requests. Chest X-Ray 12/17/21 16:24 IMPRESSION: 1. Negative for infiltrate. 2. Right-sided Port-A-Cath. 3. Cardiomegaly. 4. Emphysematous changes. Laboratory Results WBC 3.7 10^3/uL (4.0-10.0) L 12/18/21 08:04 RBC 3.98 10^6/uL (4.1-5.3) L 12/18/21 08:04 Hgb 12.1 g/dL (11.5-15.3) 12/18/21 08:04 Hct 37.9 % (37.0-47.0) 12/18/21 08:04 MCV 95.2 fl (81-99) 12/18/21 08:04 MCH 30.4 pg (28.0-34.0) 12/18/21 08:04 MCHC 31.9 g/dL (30.0-36.0) 12/18/21 08:04 RDW 14.8 % (12.1-15.1) 12/18/21 08:04 Plt Count 126 10^3/cmm (130-400) L 12/18/21 08:04 MPV 11.2 fL (7.4-10.4) H 12/18/21 08:04 Neut % (Auto) 59.8 % 12/18/21 08:04 Lymph % (Auto) 17.9 % 12/18/21 08:04 [place] % (Auto) 21.2 % 12/18/21 08:04 Eos % (Auto) 0.3 % 12/18/21 08:04 Baso % (Auto) 0.5 % 12/18/21 08:04 Neut # (Auto) 2.20 10^3/uL (1.8-7.7) 12/18/21 08:04 Lymph # (Auto) 0.7 10^3/uL (0.8-4.8) L 12/18/21 08:04 [place] # (Auto) 0.8 10^3/uL (0.2-0.9) 12/18/21 08:04 Eos # (Auto) 0.0 10^3/uL (0.0-0.8) 12/18/21 08:04 Baso # (Auto) 0.0 10^3/uL (0.0-0.1) 12/18/21 08:04 Nucleated RBC % (auto) 0 % 12/18/21 08:04 Nucleated RBCs # 0.0 /100WBC 12/18/21 08:04 PT 14.50 SECONDS (12.1-14.9) 12/17/21 14:50 INR 1.09 (0.8-1.2) 12/17/21 14:50 APTT 95.8 SECONDS (23.9-36.7) H D 12/18/21 16:30 Specimen Type Arterial 12/17/21 09:32 Sample Site Radial, right 12/17/21 09:32 ABG pH 7.49 (7.35-7.45) H 12/17/21 09:32 ABG pCO2 39.6 mmHg (35-45) 12/17/21 09:32 ABG pO2 73.1 mmHg (80.0-100.0) L 12/17/21 09:32 ABG HCO3 30.4 mmol/L (22-26) H 12/17/21 09:32 ABG O2 Saturation 95.5 12/17/21 09:32 ABG Base Excess 6.6 mmol/L (-2.0-2.0) H 12/17/21 09:32 Royer Test Pos 12/17/21 09:32 A-a O2 Gradient 10.4 mmHg (5-10) H 12/17/21 09:32 Hematocrit 39.6 % (37-47) 12/17/21 09:32 Hgb O2 Saturation 93.9 % (95-100) L 12/17/21 09:32 Carboxyhemoglobin 1.4 %THgb (0.4-20.1) 12/17/21 09:32 Methemoglobin 0.2 % (0.4-1.5) L 12/17/21 09:32 Total Hemoglobin 12.9 g/dL (12-16) 12/17/21 09:32 Sodium 138.0 mmol/L (131-143) 12/17/21 09:32 Potassium 2.8 mmol/L (3.5-5.0) L 12/17/21 09:32 Glucose 73.0 mg/dL (70-115) 12/17/21 09:32 Ionized Calcium 1.2 mmol/L (1.1-1.4) 12/17/21 09:32 O2 Delivery Device Nc 12/17/21 09:32 O2 Liters/Min 2.0 % 12/17/21 09:32 FiO2 28.0 % 12/17/21 09:32 [place] Man ID glc 12/17/21 09:32 Sodium 136 mmol/L (136-145) 12/18/21 08:04 Potassium 3.3 mmol/L (3.5-5.1) L 12/18/21 08:04 Chloride 99 mmol/L (98-107) 12/18/21 08:04 Carbon Dioxide 28 mmol/L (22-29) 12/18/21 08:04 Anion Gap 12.3 (5-19) 12/18/21 08:04 BUN 15 mg/dL (8-23) 12/18/21 08:04 Creatinine 0.8 mg/dL (0.5-0.9) 12/18/21 08:04 GFR Calculation Not Reportable 12/18/21 08:04 Glucose 71 mg/dL (65-115) 12/18/21 08:04 POC Glucose 83 mg/dL (70-110) 12/17/21 14:00 Calculated Osmolality 281 mOsm/kg (285-295) L 12/18/21 08:04 Lactate 2.0 mmol/L (0.5-2.2) 12/15/21 19:27 Calcium 8.4 mg/dL (8.5-10.5) L 12/18/21 08:04 Phosphorus 2.8 mg/dL (2.5-4.5) 12/15/21 19:27 Magnesium 1.7 mg/dL (1.7-2.3) 12/17/21 04:14 Total Bilirubin 0.8 mg/dL (0.15-1.2) 12/17/21 04:14 AST 22 U/L (0-32) 12/17/21 04:14 ALT 59 U/L (0-33) H 12/17/21 04:14 Alkaline Phosphatase 89 U/L (35-105) 12/17/21 04:14 Troponin T Baseline 78 ng/L (0-10) H 12/16/21 08:22 Troponin T 120 Minute 80.25 ng/L (0-10) H 12/16/21 09:58 Delta Troponin T 2.25 ABS# (0-10) 12/16/21 09:58 Troponin T Hi Sens 6Hr 69.82 ng/L (0-10) H 12/16/21 14:40 Troponin T Hi Sens 6Hr Delta -8.18 ng/L (0-12) L 12/16/21 14:40 C-Reactive Protein 30.8 mg/L (0.0-4.9) H 12/17/21 04:14 NT-Pro-B Natriuret Pep 36550 pg/mL (0-125) H 12/17/21 04:14 Total Protein 4.7 g/dL (6.6-8.7) L 12/17/21 04:14 Albumin 2.6 g/dL (3.5-5.2) L 12/17/21 04:14 Globulin 2.1 g/dL (1.3-4.6) 12/17/21 04:14 Vitamin B12 682 pg/mL (232-1245) 12/18/21 08:04 Procalcitonin 0.10 ng/mL (0-0.5) 12/17/21 04:14 Urine Color Colorless (Yellow) 12/15/21 23:15 Urine Appearance Clear (CLEAR) 12/15/21 23:15 Urine pH 8 (5-7) H 12/15/21 23:15 Ur Specific [place] 1.010 (1.005-1.030) 12/15/21 23:15 Urine Protein Neg (Negative) 12/15/21 23:15 Urine Glucose (UA) Norm (Normal) 12/15/21 23:15 Urine Ketones Negative (Negative) 12/15/21 23:15 Urine Blood Neg (Negative) 12/15/21 23:15 Urine Nitrate Negative (Negative) 12/15/21 23:15 Urine Bilirubin Neg (Negative) 12/15/21 23:15 Prot Sulfosalicylic Acd Negative (Negative) 12/15/21 23:15 Urine Urobilinogen Norm mg/dL (Negative) 12/15/21 23:15 Ur Leukocyte Esterase Negative (Negative) 12/15/21 23:15 Fluid Color Slight pink 12/16/21 16:25 Fluid Appearance Cloudy 12/16/21 16:25 Fluid WBC 83 /uL 12/16/21 16:25 Fluid RBC 5.000 10^3/uL 12/16/21 16:25 Fluid Hematocrit Not Reportable 12/16/21 16:25 Fld Polynuclear WBCs # 0.019 12/16/21 16:25 Fld Polynuclear WBCs % 22.900 % 12/16/21 16:25 Fl Mononucl WBCs #(Auto) 0.064 12/16/21 16:25 Fl Mononuclear % Auto 77.100 % 12/16/21 16:25 Fluid Albumin 0.5 g/dL 12/16/21 16:25 Fluid Creatinine 0.48 (0.5-0.9) L 12/16/21 16:25 Pleural pH 9.00 (6.5-7.5) H 12/16/21 16:25 Pleural Total Protein 1.0 g/dL 12/16/21 16:25 Pleural LDH 133 U/L 12/16/21 16:25 Pleural Glucose 49.0 mg/dL 12/16/21 16:25 Pleural Amylase 4.0 U/L 12/16/21 16:25 Pleural Triglycerides 23 mg/dL 12/16/21 16:25 Vancomycin Trough 18.0 ug/mL (10-15) H 12/18/21 06:50 A. galactomannan Ag EIA Cancelled 12/16/21 04:00 A. galactomannan Ag Idx Cancelled 12/16/21 04:00 Micro: Microbiology 12/16/21 00:45 Gram Stain - Final Sputum - Expectorated Sputum Sputum Culture - Final 12/16/21 16:25 Gram Stain - Final Pleural Fluid Body Fluid Culture - Preliminary A&P Assessment and plan (1) Cavitary lesion of lung: (2) CHF NYHA class III: (3) Aortic stenosis: (4) Systolic CHF: (5) NSTEMI (non-ST elevated myocardial infarction): (6) Pulmonary embolism: (7) Pneumonia: (8) Systemic lupus erythematosus (SLE) in adult: (9) Immunosuppression: Plan #Bilateral infiltrates on CT scan with a small cavitation in anterior left upper lobe 2.9 cm lesion suspect bacterial pneumonia #Bilateral pleural effusions -right greater than left-s/p IR guided t horacentesis yielded 20 cc fluid- transudative in nature and likely due to CHF -Primary suspicion is bacterial pneumonia and so she was started on Cefepime and Vancomycin; Clinically responding and reporting subjective improvement -Urine bacterial and Legionella antigen were negative, MRSA nares negative, sputum gram cultures negative so far; blood cultures and Pleural cultures are pending -However given her history of being on immunomodulators including B-cell activation inhibitors for SLE, atypical causes including invasive fungal infection/TB were considered in the differential and accordingly peripheral work-up with serum Aspergillus galactomannan, urine histoplasma antigen,AFB smear and culture were sent-results pending -Another big concern-given history of breast cancer status post radiation therapy, could these be any metastatic lesions.-Patient herself denied any smok ing history. -I will recommend to continue antibiotics for now and follow-up with atypical infection work-up-if patient clinically responds and improves while in the hospital-I will repeat CT chest in 3 to 6 weeks to check for resolution of lesions; if they still persist then we will plan for outpatient PET/CT/biopsies to rule out malignancy -Suspect bilateral pleural effusions again be secondary to systolic CHF- # small right-sided PE -Currently on heparin drip - Venous ultrasound, negative for DVT. #Systolic CHF and moderate aortic stenosis on echocardiogram-suspect demand ischemia from ongoing sepsis -Echo showed Mildly decreased left ?ventricular systolic function. LVEF is estimated at 45-50 %.? There seems to be septal and ?apical hypokinesis. Grade II diastolic dysfunction, moderately ?elevated filling pressures. Moderately th ickened and calcified aortic valve.? Moderate ?aortic valve stenosis, peak velocity 3 m/s, peak gradient 37 ?mmHg , mean gradient 17.8 mmHg, KRUPA 0.96 cm squared. [id number] ?aortic valve regurgitation. -Prior echocardiogram in May 2016 with LVEF of possibly 55% with slightly hypokinetic basal anteroseptal segment in a technically difficult study -?EKG with sinus rhythm with intraventricular conduction delay and nonspecific ST and T wave abnormality.? -Significantly elevated BNP 32,000, she was started on Lasix 40 IV daily -Cardiology consulted and recommended aspirin, statin, low-dose metoprolol and will plan on stress test tomorrow Medical condition, labs, investigations and plan of care-everything explained in detail to the patient and her daughter at bedside. Recommendations conveyed to hospitalist taking care of the patient Attestations Medical Necessity Statement*: Continue medical management Time Spent in Patient Care: Greater than 35 minutes (>than 50% of time spent in counselling and/or direct pt care on unit) . 33 min Coding Level of Care Code Established Pt Acute Forensic Science Examiner for g Fwd Patient Type Established History Comprehensive Exam Comprehensive Medical Decision Making Moderate Complexity Diagnoses Cavitary lesion of lung J98.4 CHF NYHA class III I50.9 Aortic stenosis I35.0 Systolic CHF I50.20 NSTEMI (non-ST elevated myocardial infarction) I21.4 Pulmonary embolism I26.99 Pneumonia J18.9 Systemic lupus erythematosus (SLE) in adult M32.9 Immunosuppression D89.9 Time Spent (min) 33
[2021-12-18] MEDS: atorvastatin 40 mg Tablet PO (21:44)
[2021-12-19] VITALS (12 sets, daily range): BP systolic 97–114; BP diastolic 49–66; PULSE 72–110; RESP 16–20; TEMP 36.4–36.8; O2SAT 94–98
[2021-12-19 00:12] LABS: Partial Thromboplastin Time 81.9 SECONDS (23.9-36.7)
[2021-12-19] MEDS: vancomycin 1,250 MG/250 ML PIGGYBACK 250 MG IV ×2 (01:23→18:51)
[2021-12-19] MEDS: cefepime 1,000 MG in sodium chloride 0.9% (plus) 50 ML 100 MG IV ×2 (02:35→16:41)
[2021-12-19 06:53] LABS: Platelet Count 112 10^3/cmm (130-400)
--- NOTE | 2021-12-19 07:00 | NMCV_ITS ---
NM shakeel perf SPECT r/s* [id number] Xenia Vivas Age: 71 Gender: F : 1950 Exam Date: 12/19/2021 08:32 Ordering Phys: Rowena Curtis MD Technologist: NEIL Weir Exam Location: [facility] Indications: CHEST PAIN STRESS TEST Please see separate stress test report in [facility] for full findings IMAGE PROTOCOL Rest/Stress 1 Lexiscan Day Radiopharmaceutical Dose (mCi) Administration Site Administered by Rest: Tc-99m 8.1 IV NEIL Bolanos Sestamibi Stress:Tc-99m 24.7 IV NEIL Bolanos Sestamibi Rest: 19-Dec-2021 60 Discovery 630 Stress: 19-Dec-2021 30 Discovery 630 0.4mg Lexiscan. Images obtained in supine and prone position. SPECT RESULTS Technical Quality: Excellent Raw Data Analysis: Normal Image Corrections: No attenuation or motion correction applied Summed Stress Score: 12 Summed Rest Score: 14 Summed Difference Score: 0 PERFUSION FINDINGS Medium sized perfusion abnormality of moderate severity of mid to apical anterior, apical inferior, apical septal apical lateral and apical patterson on rest and stress images. FUNCTIONAL RESULTS (calculated via Gated SPECT) Stress Image LV EF (%): 39 Stress EDV (mL):197 TID: 1.11 Stress ESV (mL):121 FUNCTIONAL FINDINGS: The left ventricle is normal in size. Transient Ischemia Dilatation of 1.1. There is moderately reduced left ventricular global systolic function. The left ventricular ejection fraction is reduced with a value of 39%. IMPRESSIONS 1. Medium sized predominantly fixed perfusion abnormality of moderate severity of mid to apical anterior, apical inferior, apical septal, apical lateral and apical patterson. 2. This is suggestive of old myocardial infarction in left anterior descending artery territory. 3. The left ventricular ejection fraction is moderately reduced with a value of 39%. 4. There is hypokinesis of mid to apical anterior and apical patterson. 5. No coronary ischemia based on the study. Irma Teran MD (Electronically Signed) Final Date: 19 December 2021 16:15 S
[2021-12-19 07:21] LABS: Magnesium 1.9 mg/dL (1.7-2.3)
[2021-12-19 07:40] LABS: Partial Thromboplastin Time 69.7 SECONDS (23.9-36.7)
--- NOTE | 2021-12-19 07:42 | PM.PN ---
Subjective Subjective: Patient underwent stress test this morning Medications: Reviewed: Yes Vitals/I&O/Wt Last Vital Signs Temp 97.8 F 12/19/21 04:00 Pulse 0 L 12/19/21 06:00 Resp 17 12/19/21 04:00 BP 100/64 12/19/21 04:00 Pulse Ox 95 12/19/21 04:00 O2 Del Method 12/19/21 04:00 12/18/21 12/19/21 12/19/21 22:59 06:59 14:59 Intake Total 50 / 815.2 480 / 480 Output Total 1100 / 1100 700 / 700 Balance -1050 / -284.8 -220 / -220 Physical Exam Narrative: GENERAL: Averagely built and averagely nourished in no acute distress HEENT: Extraocular movement intact. No pallor or icterus. NECK: central trachea, No JVD, No carotid bruit. CARDIOVASCULAR SYSTEM: S1-S2 regular. systolic murmur + RESPIRATORY SYSTEM: Decresed BS at bases. No wheezes or rubs heard. +rhonchi ABDOMEN: Soft, nontender and nondistended. Normal bowel sounds present. EXTREMITIES: No cyanosis or edema. No signs of chronic venous insufficiency. ANIMAL HUSBANDRY MANAGER: Patient is alert oriented ?3. No focal neurological deficits. SKIN: Normal turgor and temperature. No breakdown, rash or nail changes noted. PSYCH: Normal insight and judgment. No suicidal or homicidal ideations. Data : 12/19/21 06:30 12/18/21 08:04 Micro: Microbiology 12/16/21 00:45 Gram Stain - Final Sputum - Expectorated Sputum Sputum Culture - Final 12/16/21 16:25 Gram Stain - Final Pleural Fluid Body Fluid Culture - Preliminary A&P Assessment and plan (1) Pneumonia: (2) CHF NYHA class III: Newly diagnosed cardiomyopathy. However, previous echo was TDS and showed some RWMA few years back. Heart failure with mildly reduced ejection fraction with LVEF of 45 to 50% and with possible septal and apical hypokinesis.. -Agree with aspirin and statin -No ischemia on stress test. -I spoke to the patient. She has had no chest pains. SOB after diuresis has resolved. Result of stress test discussed with the patient and decision was made to proceed with medical management for now and f/u outpatient with me in 2-3 weeks. -will add low dose beta hollie tomorrow and add entresto based on BP and renal function Plan Elevated troponin without any delta change: This is not type I non-ST elevation NE ; no chest pains at any time, No EKG changes previous echo (TDS) Possible small PE in right lower lobe arterial branch: On heparin drip for the same Bilateral pleural effusion: Plan for thoracentesis later today Moderate aortic stenosis Mild to moderate aortic regurgitation History of lupus History of breast cancer Dyslipidemia Hypokalemia Attestations Medical Necessity Statement*: possible discharge tomorrow Coding Level of Care Code Acute Manager Biologics for Chg Fwd Diagnoses Pneumonia J18.9 CHF NYHA class III I50.9
[2021-12-19] MEDS: regadenoson 0.4 Mg/5 ml Syringe IVP (09:34)
--- NOTE | 2021-12-19 10:47 | P.PN_ITS ---
Subjective Subjective: Further plan will be made after cardiac stress test Daughter was updated this morning Vitals/I&O/Wt Last Vital Signs Temp 97.6 F 12/19/21 08:40 Pulse 72 12/19/21 09:49 Resp 20 H 12/19/21 08:40 BP 114/49 12/19/21 09:49 Pulse Ox 94 12/19/21 08:40 O2 Del Method 12/19/21 08:40 12/18/21 12/19/21 12/19/21 22:59 06:59 14:59 Intake Total 50 / 815.2 480 / 480 Output Total 1100 / 1100 700 / 700 Balance -1050 / -284.8 -220 / -220 Physical Exam Narrative: No overnight events Currently on room air S1, S2 with systolic murmur Abdomen soft No signs of congestive heart failure No neurological neurodeficits Pleasant cooperative Data : 12/19/21 06:30 12/18/21 08:04 Micro: Microbiology 12/16/21 00:45 Gram Stain - Final Sputum - Expectorated Sputum Sputum Culture - Final 12/16/21 16:25 Gram Stain - Final Pleural Fluid Body Fluid Culture - Preliminary A&P Assessment and plan (1) Cavitary lesion of lung: (2) CHF NYHA class III: (3) Aortic stenosis: (4) Systolic CHF: (5) NSTEMI (non-ST elevated myocardial infarction): (6) Pulmonary embolism: (7) Pneumonia: Plan Further plan will be made after her cardiac stress test She does have moderate aortic stenosis which needs to be followed up with cardiology outpatient Acute study congestive heart failure exacerbation currently compensated hold Lasix for now because of low blood pressure Pulm embolism, will switch to Eliquis at the time of discharge Will do home O2 evaluation before discharge Full code Cardiac diet DVT prophylaxis covered with anticoagulating therapeutic regimen Cavitary lesion No bacteremia No fever No worsening of leukocytosis Will continue antibiotics until she is discharged from the hospital at the time of discharge we will add p.o. antibiotics and have her follow-up with Dr. Charles repeat CT scan in 3 weeks to decide on PET scan Attestations Medical Necessity Statement*: Continue medical management Time Spent in Patient Care: 30 Coding Level of Care Code Acute Household Worker for g Fwd Diagnoses Cavitary lesion of lung J98.4 CHF NYHA class III I50.9 Aortic stenosis I35.0 Systolic CHF I50.20 NSTEMI (non-ST elevated myocardial infarction) I21.4 Pulmonary embolism I26.99 Pneumonia J18.9
[2021-12-19] MEDS: predniSONE 10 mg Tablet PO (11:22)
[2021-12-19] MEDS: hydroxychloroquine 200 mg Tablet PO (11:22)
[2021-12-19] MEDS: aspirin 81 mg EC Tablet PO (11:22)
[2021-12-19] MEDS: pantoprazole DR 40 mg Tablet PO (11:22)
[2021-12-19] MEDS: potassium chloride ER 20 mEq Tablet 40 MEQ PO (11:23)
[2021-12-19 13:57] LABS: Partial Thromboplastin Time 26.6 SECONDS (23.9-36.7)
[2021-12-19] MEDS: heparin 5,000 unit/mL INJ 1 mL IV (15:32)
--- NOTE | 2021-12-19 19:06 | PM.PN ---
Subjective Subjective: Seen patient today morning -She was a bit anxious out about stress test -Otherwise reported feeling well Medications: Reviewed: Yes Vitals/I&O/Wt Last Vital Signs Temp 98.3 F 12/19/21 15:59 Pulse 91 12/19/21 15:59 Resp 17 12/19/21 15:59 BP 105/66 12/19/21 15:59 Pulse Ox 96 12/19/21 15:59 O2 Del Method 12/19/21 08:40 12/19/21 12/19/21 12/19/21 06:59 14:59 22:59 Intake Total 1140 / 1140 410 / 1550 Output Total 700 / 700 Balance 440 / 440 410 / 850 Physical Exam Narrative: General: alert, NAD HEENT: conj clear, EOMI, PERRL, mmm, Neck: supple, no meningismus Heme: no cervical LAP Pulmonary: CTAB, no wheezing, rhonchi, crackles Cardiovascular: rrr, nl s1s2, no mrg Abdomen: soft, nt, nd, no r/g, bs+ Extremities: pulses +, no edema, no c/c : no CVA tenderness Skin: intact, no rash MSK: no back or neck pain Neurologic: grossly intact Data : 12/19/21 06:30 12/18/21 08:04 Other Labs: Radiology Impressions Head CT 12/15/21 18:52 IMPRESSION: No acute intracranial finding. Foot X-Ray 12/15/21 20:00 IMPRESSION: No acute fracture. Chest/Abdomen/Pelvis CT 12/15/21 20:02 IMPRESSION: 1. Findings suspicious for a small pulmonary embolus in a right lower lobe artery branch. 2. Bilateral multilobar nodular consolidations is most likely pneumonia. 3. 2.9 cm nodular consolidation in the anterior left upper lobe with a small cavitation. This could represent pneumonia with a small abscess. A septic embolus or malignant neoplasm are considered less likely. Close CT follow-up to document resolution recommended. 4. Moderate left and small right pleural effusions. IMPRESSION: 1. No acute findings. 2. Mild nonspecific pelvic ascites. 3. Mild body wall edema. 4. Age indeterminate T11, L1, and L2 compression fractures. ADDENDUM: 12/15/212112 THIS REPORT CONTAINS FINDINGS THAT MAY BE CRITICAL TO PATIENT CARE. The findings were verbally communicated via telephone conference with SALBADOR MENDEZ at 9:11 PM CDT on 12/15/2021. The findings were acknowledged and understood. Venous Duplex 12/16/21 09:49 IMPRESSION: No evidence of deep vein thrombosis. Thoracentesis Ultrasound 12/17/21 09:51 IMPRESSION: 1. Uncomplicated ultrasound-guided thoracentesis with removal of 20 cc fluid sent to the laboratory for further analysis. 2. No large accessible pocket of fluid was visualized. Attempted to obtain enough fluid for laboratory requests. Chest X-Ray 12/17/21 16:24 IMPRESSION: 1. Negative for infiltrate. 2. Right-sided Port-A-Cath. 3. Cardiomegaly. 4. Emphysematous changes. Laboratory Results WBC 3.7 10^3/uL (4.0-10.0) L 12/18/21 08:04 RBC 3.98 10^6/uL (4.1-5.3) L 12/18/21 08:04 Hgb 12.1 g/dL (11.5-15.3) 12/18/21 08:04 Hct 37.9 % (37.0-47.0) 12/18/21 08:04 MCV 95.2 fl (81-99) 12/18/21 08:04 MCH 30.4 pg (28.0-34.0) 12/18/21 08:04 MCHC 31.9 g/dL (30.0-36.0) 12/18/21 08:04 RDW 14.8 % (12.1-15.1) 12/18/21 08:04 Plt Count 112 10^3/cmm (130-400) L 12/19/21 06:30 MPV 11.2 fL (7.4-10.4) H 12/18/21 08:04 Neut % (Auto) 59.8 % 12/18/21 08:04 Lymph % (Auto) 17.9 % 12/18/21 08:04 [place] % (Auto) 21.2 % 12/18/21 08:04 Eos % (Auto) 0.3 % 12/18/21 08:04 Baso % (Auto) 0.5 % 12/18/21 08:04 Neut # (Auto) 2.20 10^3/uL (1.8-7.7) 12/18/21 08:04 Lymph # (Auto) 0.7 10^3/uL (0.8-4.8) L 12/18/21 08:04 [place] # (Auto) 0.8 10^3/uL (0.2-0.9) 12/18/21 08:04 Eos # (Auto) 0.0 10^3/uL (0.0-0.8) 12/18/21 08:04 Baso # (Auto) 0.0 10^3/uL (0.0-0.1) 12/18/21 08:04 Nucleated RBC % (auto) 0 % 12/18/21 08:04 Nucleated RBCs # 0.0 /100WBC 12/18/21 08:04 PT 14.50 SECONDS (12.1-14.9) 12/17/21 14:50 INR 1.09 (0.8-1.2) 12/17/21 14:50 APTT 26.6 SECONDS (23.9-36.7) D 12/19/21 13:34 Specimen Type Arterial 12/17/21 09:32 Sample Site Radial, right 12/17/21 09:32 ABG pH 7.49 (7.35-7.45) H 12/17/21 09:32 ABG pCO2 39.6 mmHg (35-45) 12/17/21 09:32 ABG pO2 73.1 mmHg (80.0-100.0) L 12/17/21 09:32 ABG HCO3 30.4 mmol/L (22-26) H 12/17/21 09:32 ABG O2 Saturation 95.5 12/17/21 09:32 ABG Base Excess 6.6 mmol/L (-2.0-2.0) H 12/17/21 09:32 Royer Test Pos 12/17/21 09:32 A-a O2 Gradient 10.4 mmHg (5-10) H 12/17/21 09:32 Hematocrit 39.6 % (37-47) 12/17/21 09:32 Hgb O2 Saturation 93.9 % (95-100) L 12/17/21 09:32 Carboxyhemoglobin 1.4 %THgb (0.4-20.1) 12/17/21 09:32 Methemoglobin 0.2 % (0.4-1.5) L 12/17/21 09:32 Total Hemoglobin 12.9 g/dL (12-16) 12/17/21 09:32 Sodium 138.0 mmol/L (131-143) 12/17/21 09:32 Potassium 2.8 mmol/L (3.5-5.0) L 12/17/21 09:32 Glucose 73.0 mg/dL (70-115) 12/17/21 09:32 Ionized Calcium 1.2 mmol/L (1.1-1.4) 12/17/21 09:32 O2 Delivery Device Nc 12/17/21 09:32 O2 Liters/Min 2.0 % 12/17/21 09:32 FiO2 28.0 % 12/17/21 09:32 Fittings Finisher ID glc 12/17/21 09:32 Sodium 136 mmol/L (136-145) 12/18/21 08:04 Potassium 3.3 mmol/L (3.5-5.1) L 12/18/21 08:04 Chloride 99 mmol/L (98-107) 12/18/21 08:04 Carbon Dioxide 28 mmol/L (22-29) 12/18/21 08:04 Anion Gap 12.3 (5-19) 12/18/21 08:04 BUN 15 mg/dL (8-23) 12/18/21 08:04 Creatinine 0.8 mg/dL (0.5-0.9) 12/18/21 08:04 GFR Calculation Not Reportable 12/18/21 08:04 Glucose 71 mg/dL (65-115) 12/18/21 08:04 POC Glucose 83 mg/dL (70-110) 12/17/21 14:00 Calculated Osmolality 281 mOsm/kg (285-295) L 12/18/21 08:04 Lactate 2.0 mmol/L (0.5-2.2) 12/15/21 19:27 Calcium 8.4 mg/dL (8.5-10.5) L 12/18/21 08:04 Phosphorus 2.8 mg/dL (2.5-4.5) 12/15/21 19:27 Magnesium 1.9 mg/dL (1.7-2.3) 12/19/21 06:30 Total Bilirubin 0.8 mg/dL (0.15-1.2) 12/17/21 04:14 AST 22 U/L (0-32) 12/17/21 04:14 ALT 59 U/L (0-33) H 12/17/21 04:14 Alkaline Phosphatase 89 U/L (35-105) 12/17/21 04:14 Troponin T Baseline 78 ng/L (0-10) H 12/16/21 08:22 Troponin T 120 Minute 80.25 ng/L (0-10) H 12/16/21 09:58 Delta Troponin T 2.25 ABS# (0-10) 12/16/21 09:58 Troponin T Hi Sens 6Hr 69.82 ng/L (0-10) H 12/16/21 14:40 Troponin T Hi Sens 6Hr Delta -8.18 ng/L (0-12) L 12/16/21 14:40 C-Reactive Protein 30.8 mg/L (0.0-4.9) H 12/17/21 04:14 NT-Pro-B Natriuret Pep 45514 pg/mL (0-125) H 12/17/21 04:14 Total Protein 4.7 g/dL (6.6-8.7) L 12/17/21 04:14 Albumin 2.6 g/dL (3.5-5.2) L 12/17/21 04:14 Globulin 2.1 g/dL (1.3-4.6) 12/17/21 04:14 Vitamin B12 682 pg/mL (232-1245) 12/18/21 08:04 Procalcitonin 0.10 ng/mL (0-0.5) 12/17/21 04:14 Urine Color Colorless (Yellow) 12/15/21 23:15 Urine Appearance Clear (CLEAR) 12/15/21 23:15 Urine pH 8 (5-7) H 12/15/21 23:15 Ur Specific [place] 1.010 (1.005-1.030) 12/15/21 23:15 Urine Protein Neg (Negative) 12/15/21 23:15 Urine Glucose (UA) Norm (Normal) 12/15/21 23:15 Urine Ketones Negative (Negative) 12/15/21 23:15 Urine Blood Neg (Negative) 12/15/21 23:15 Urine Nitrate Negative (Negative) 12/15/21 23:15 Urine Bilirubin Neg (Negative) 12/15/21 23:15 Prot Sulfosalicylic Acd Negative (Negative) 12/15/21 23:15 Urine Urobilinogen Norm mg/dL (Negative) 12/15/21 23:15 Ur Leukocyte Esterase Negative (Negative) 12/15/21 23:15 Fluid Color Slight pink 12/16/21 16:25 Fluid Appearance Cloudy 12/16/21 16:25 Fluid WBC 83 /uL 12/16/21 16:25 Fluid RBC 5.000 10^3/uL 12/16/21 16:25 Fluid Hematocrit Not Reportable 12/16/21 16:25 Fld Polynuclear WBCs # 0.019 12/16/21 16:25 Fld Polynuclear WBCs % 22.900 % 12/16/21 16:25 Fl Mononucl WBCs #(Auto) 0.064 12/16/21 16:25 Fl Mononuclear % Auto 77.100 % 12/16/21 16:25 Fluid Albumin 0.5 g/dL 12/16/21 16:25 Fluid Creatinine 0.48 (0.5-0.9) L 12/16/21 16:25 Pleural pH 9.00 (6.5-7.5) H 12/16/21 16:25 Pleural Total Protein 1.0 g/dL 12/16/21 16:25 Pleural LDH 133 U/L 12/16/21 16:25 Pleural Glucose 49.0 mg/dL 12/16/21 16:25 Pleural Amylase 4.0 U/L 12/16/21 16:25 Pleural Triglycerides 23 mg/dL 12/16/21 16:25 Vancomycin Trough 18.0 ug/mL (10-15) H 12/18/21 06:50 A. galactomannan Ag EIA Cancelled 12/16/21 04:00 A. galactomannan Ag Idx Cancelled 12/16/21 04:00 Micro: Microbiology 12/16/21 16:25 Gram Stain - Final Pleural Fluid Body Fluid Culture - Final 12/16/21 00:45 Gram Stain - Final Sputum - Expectorated Sputum Sputum Culture - Final A&P Assessment and plan (1) Cavitary lesion of lung: (2) CHF NYHA class III: (3) Aortic stenosis: (4) Systolic CHF: (5) NSTEMI (non-ST elevated myocardial infarction): (6) Pulmonary embolism: (7) Pneumonia: (8) Systemic lupus erythematosus (SLE) in adult: (9) Immunosuppression: Plan #Bilateral infiltrates on CT scan with a small cavitation in anterior left upper lobe 2.9 cm lesion suspect bacterial pneumonia #Bilateral pleural effusions -right greater than left-s/p IR guided thoracentesis yielded 20 cc fluid- transudative in nature and likely due to CHF -Primary suspicion is bacterial pneumonia and so she was started on Cefepime and Vancomycin; Clinically responding and reporting subjective improvement -Urine bacterial and Legionella antigen were negative, MRSA nares negative, sputum gram cultures negative so far; blood cultures and Pleural cultures are negative after 3 days -However given her history of being on immunomodulators including B-cell activation inhibitors for SLE, atypical causes including invasive fungal infection/TB were considered in the differential and accordingly peripheral work-up with serum Aspergillus galactomannan, urine histoplasma antigen,AFB smear and culture were sent-results pending -Another big concern-given history of breast cancer status post radiation therapy, could these be any metastatic lesions.-Patient herself denied any smoking history. -I will recommend to continue antibiotics for now and follow-up with atypical infection work-up-if patient clinically responds and improves while in the hospital-I will repeat CT chest in 3 to 6 weeks to check for resolution of lesions; if they still persist then we will plan for outpatient PET/CT/biopsies to rule out malignancy -Suspect bilateral pleural effusions again be secondary to systolic CHF- # small right-sided PE -Currently on heparin drip - Venous ultrasound, negative for DVT. #Systolic CHF and moderate aortic stenosis on echocardiogram-suspect demand ischemia from ongoing sepsis -Echo showed Mildly decreased left ?ventricular systolic function. LVEF is estimated at 45-50 %.? There seems to be septal and ?apical hypokinesis. Grade II diastolic dysfunction, moderately ?elevated filling pressures. Moderately thickened and calcified aortic valve.? Moderate ?aortic valve stenosis, peak velocity 3 m/s, peak gradient 37 ?mmHg , mean gradient 17.8 mmHg, KRUPA 0.96 cm squared. [id number] ?aortic valve regurgitation. -Prior echocardiogram in May 2016 with LVEF of possibly 55% with slightly hypokinetic basal anteroseptal segment in a technically difficult study -?EKG with sinus rhythm with intraventricular conduction delay and nonspecific ST and T wave abnormality.? -Significantly elevated BNP 32,000, she was started on Lasix 40 IV daily -Cardiology consulted and recommended aspirin, statin, low-dose metoprolol; she underwent a stress test today and report pending Medical condition, labs, investigations and plan of care-everything explained in detail to the patient and her daughter at bedside. Recommendations conveyed to hospitalist taking care of the patient Attestations Medical Necessity Statement*: Continue medical management Time Spent in Patient Care: Greater than 35 minutes (>than 50% of time spent in counselling and/or direct pt care on unit). 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
[2021-12-19] MEDS: atorvastatin 40 mg Tablet PO (20:13)
[2021-12-19] MEDS: apixaban 5 mg Tablet PO (20:39)
--- NOTE | 2021-12-19 20:42 | PC.NURSE ---
HEPARIN DRIP Heparin drip has been stopped and started po Eliquis
[2021-12-20] MEDS: cefepime 1,000 MG in sodium chloride 0.9% (plus) 50 ML 100 MG IV (01:32)
[2021-12-20 03:09] LABS: Basophils % 0.7 %; Eosinophils % 0.7 %; Hematocrit 36.8 % (37.0-47.0); Hemoglobin 11.5 g/dL (11.5-15.3); Lymphocytes # 0.7 10^3/uL (0.8-4.8); Lymphocytes % 15.8 %; Mean Corpuscular HGB Conc 31.3 g/dL (30.0-36.0); Mean Corpuscular Hemoglobin 30.4 pg (28.0-34.0); Mean Corpuscular Volume 97.4 fl (81-99); Mean Platelet Volume 11.3 fL (7.4-10.4); Monocytes % 23.3 %; Neutrophils # 2.58 10^3/uL (1.8-7.7); Nucleated Red Blood Cells % 0 %; Platelet Count 122 10^3/cmm (130-400); Red Blood Count 3.78 10^6/uL (4.1-5.3); Red Cell Distribution Width 14.8 % (12.1-15.1); White Blood Count 4.4 10^3/uL (4.0-10.0)
[2021-12-20 03:32] LABS: Anion Gap 12.3 (5-19); Blood Urea Nitrogen 15 mg/dL (8-23); Calcium 8.7 mg/dL (8.5-10.5); Carbon Dioxide 24 mmol/L (22-29); Chloride 105 mmol/L (98-107); Glucose 87 mg/dL (65-115); Osmolality Calculated 284 mOsm/kg (285-295); Potassium 4.3 mmol/L (3.5-5.1); Sodium 137 mmol/L (136-145)
[2021-12-20 04:00] VITALS: BP 94/53; PULSE 89; RESP 16; TEMP 36.6; O2SAT 93
[2021-12-20 06:00] VITALS: PULSE 94
--- NOTE | 2021-12-20 07:51 | PC.NURSE ---
lupus stephen fiore was the med pt gave herself.
[2021-12-20 08:00] VITALS: BP 109/70; PULSE 92; PULSE 94; RESP 16; TEMP 36.4; O2SAT 95; O2SAT 96
[2021-12-20 08:29] VITALS: O2SAT 95
[2021-12-20] MEDS: lactated ringers 500 ML 999 ML IV (08:45)
[2021-12-20] MEDS: potassium chloride ER 20 mEq Tablet 40 MEQ PO (08:45)
[2021-12-20] MEDS: apixaban 5 mg Tablet PO (08:46)
[2021-12-20] MEDS: aspirin 81 mg EC Tablet PO (08:46)
[2021-12-20] MEDS: pantoprazole DR 40 mg Tablet PO (08:46)
[2021-12-20] MEDS: predniSONE 10 mg Tablet PO (08:46)
[2021-12-20] MEDS: hydroxychloroquine 200 mg Tablet PO (08:46)
--- NOTE | 2021-12-20 10:21 | P.PN_ITS ---
Subjective Subjective: Patient underwent stress test yesterday morning Medications: Reviewed: Yes Vitals/I&O/Wt Last Vital Signs Temp 97.5 F L 12/20/21 08:00 Pulse 92 12/20/21 08:00 Resp 16 12/20/21 08:00 BP 109/70 12/20/21 08:00 Pulse Ox 95 12/20/21 08:29 O2 Del Method 12/20/21 08:00 12/19/21 12/20/21 12/20/21 22:59 06:59 14:59 Intake Total 660 / 1800 240 / 2040 50 / 50 Output Total 200 / 900 Balance 460 / 900 240 / 1140 50 / 50 Physical Exam Narrative: GENERAL: Averagely built and averagely nourished in no acute distress HEENT: Extraocular movement intact. No pallor or icterus. NECK: central trachea, No JVD, No carotid bruit. CARDIOVASCULAR SYSTEM: S1-S2 regular. systolic murmur + in aortic area RESPIRATORY SYSTEM: Decresed BS at bases. No wheezes or rubs heard. +rhonchi ABDOMEN: Soft, nontender and nondistended. Normal bowel sounds present. EXTREMITIES: No cyanosis or edema. No signs of chronic venous insufficiency. MANAGER ASSURANCE: Patient is alert oriented ?3. No focal neurological deficits. SKIN: Normal turgor and temperature. No breakdown, rash or nail changes noted. PSYCH: Normal insight and judgment. No suicidal or homicidal ideations. Data : 12/20/21 02:52 12/20/21 02:52 Micro: Microbiology 12/16/21 16:25 Gram Stain - Final Pleural Fluid Body Fluid Culture - Final A&P Assessment and plan (1) Pneumonia: As per primary team (2) CHF NYHA class III: Newly diagnosed cardiomyopathy. However, previous echo was TDS and showed some RWMA few years back. Heart failure with mildly reduced ejection fraction with LVEF of 45 to 50% and with possible septal and apical hypokinesis.. -Agree with aspirin and statin -No ischemia on stress test. -I spoke to the patient. She has had no chest pains. SOB after diuresis has resolved. Result of stress test discussed with the patient and decision was made to proceed with medical management for now and f/u with Shy in 2 weeks. -will add low dose beta hollie and add entresto based on BP and renal function outpatient (3) Cavitary lesion of lung: Plan to repeat CT chest as an outpatient Plan Elevated troponin without any delta change: This is not type I non-ST elevation [place] ; no chest pains at any time, No EKG changes previous echo (TDS) Presumed CAD based on stress test findings: No ischemia noted. 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
--- NOTE | 2021-12-20 10:44 | PM.DCS ---
Discharge Providers Date of Admission: 12/15/21 22:05 Date of Discharge: December 20, 2021 Attending Provider at Admission: Lauryn Ulrich MD Attending Provider at Discharge: Rowena Curtis MD Primary Care Provider: Jay Juarez DO Diagnoses at Discharge Discharge Diagnosis (1) Pneumonia: Status: Acute (2) CHF NYHA class III: Status: Acute Reason for Visit Reason for Visit: fall/ all over pain Hospital Course Hospital Course Xenia Vivas is a 71 year old female with a past medical history of SLE currently on belimumab. HCQS, leflunomide presenting to the emergency room with history of recent recurrent falls at home.? She is complaining of generalized fatigue and malaise. She has recovered from COVID-19 infection4 -6 weeks ago. Does not use oxygen at home. During hospitalization she was treated for cavitary lesion on CT scan of the lung, assistant administrator was consulted, please see his note for further details, fungal cultures have been sent. She remained afebrile, no leukocytosis. Intermittently she required 2 L of oxygen however did not qualify for oxygen at the time of discharge. Cultures remain negative. Thoracentesis was requested which was consistent with transudative etiology related to CHF exacerbation. Patient was treated for CHF exacerbation with Lasix, EF showed slightly reduced ejection fraction. Dr. Teran was consulted, decision was made to do stress test, her stress test did show fixed perfusion defect, she most likely had an [place] in the past, no recent event of coronary ischemia as per cardiology she will be managed medically now onwards. Dr. Sue recommended initiation of low-dose Lasix. She has remained hypotensive we are holding off on adding metoprolol or lisinopril at this point. 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 Charles is agreeable. Pending results fungal culture, galactomannan assay Patient was diagnosed with small pulmonary embolism for which she was put on heparin drip during hospitalization she is getting Eliquis at the time of discharge. Now plan is to repeat CT scan within 3 weeks, if we still see pulmonary lesions then Dr. Charles is planning for a PET scan and then possibly bronchoscopy afterwards She does have moderate T11, L1-L2 compression fracture which can be managed with opioids, if it gets worse she might need outpatient Dr. Dey's referral Physical Exam Narrative: Awake and alert Euvolemic S1, S2 Nonfocal neuro exam Did not qualify for oxygen Abdomen soft Daughter at the bedside Discharge Data Studies Completed and Pending Completed Studies During Hospitalization Category Date Time Status CT chest abd pel w con* Stat Cat Scan 12/15/21 20:[address] head wo con* [id number] Stat Cat Scan 12/15/21 18:52 Completed CXRP [XR chest 1V portable [id number]] Stat Exams 12/17/21 16:24 Completed Sestamibi Stress Test Request Routine Exams 12/18/21 09:11 Draft XR chest 1V portable [id number] Stat Exams 12/15/21 18:52 Completed XR foot RT min 3V* [id number] Stat Exams 12/15/21 20:00 Completed NM shakeel perf SPECT r/s* [id number] Routine Nuc Med 12/19/21 07:00 [place] [id number] Routine Ultrasound 12/16/21 09:49 Completed CV. echo complete* [id number] Routine Ultrasound 12/15/21 22:49 Completed US thoracentesis [id number] Routine Ultrasound 12/17/21 09:51 Completed Pending at discharge Category Date Time Status Sestamibi Stress Test Request Routine Exams 12/18/21 09:11 Ordered 1-3 Beta D Glucan [Fungitell Glucan Assay (Blood)] Lab 12/19/21 06:30 Received Routine AFB [Mycobacteria, Culture w/Fluor] Routine Lab 12/16/21 00:45 Received Aspergillus AG,EIA,Serum Routine Lab 12/18/21 16:30 Received Aspergillus AG,EIA,Serum Routine Lab 12/19/21 06:30 Received Aspergillus DNA Qualitativ PCR Routine Lab 12/19/21 06:30 Received Blood Culture Stat Lab 12/15/21 21:38 Results Histoplasma Quantitative AG Routine Lab 12/15/21 23:15 Received Mycobacteria, Culture w/Fluor Routine Lab 12/16/21 16:25 Received Partial Thromboplastin Time Timed Lab 12/19/21 19:30 Ordered Platelet Count Q2D Lab 12/21/21 04:00 Ordered Cytology [PTH] Routine Pth 12/16/21 09:52 Received Radiology Impressions Head CT 12/15/21 18:52 IMPRESSION: No acute intracranial finding. Foot X-Ray 12/15/21 20:00 IMPRESSION: No acute fracture. Chest/Abdomen/Pelvis CT 12/15/21 20:02 IMPRESSION: 1. Findings suspicious for a small pulmonary embolus in a right lower lobe artery branch. 2. Bilateral multilobar nodular consolidations is most likely pneumonia. 3. 2.9 cm nodular consolidation in the anterior left upper lobe with a small cavitation. This could represent pneumonia with a small abscess. A septic embolus or malignant neoplasm are considered less likely. Close CT follow-up to document resolution recommended. 4. Moderate left and small right pleural effusions. IMPRESSION: 1. No acute findings. 2. Mild nonspecific pelvic ascites. 3. Mild body wall edema. 4. Age indeterminate T11, L1, and L2 compression fractures. ADDENDUM: 12/15/212112 THIS REPORT CONTAINS FINDINGS THAT MAY BE CRITICAL TO PATIENT CARE. The findings were verbally communicated via telephone conference with SALBADOR MENDEZ at 9:11 PM CDT on 12/15/2021. The findings were acknowledged and understood. Venous Duplex 12/16/21 09:49 IMPRESSION: No evidence of deep vein thrombosis. Thoracentesis Ultrasound 12/17/21 09:51 IMPRESSION: 1. Uncomplicated ultrasound-guided thoracentesis with removal of 20 cc fluid sent to the laboratory for further analysis. 2. No large accessible pocket of fluid was visualized. Attempted to obtain enough fluid for laboratory requests. Chest X-Ray 12/17/21 16:24 IMPRESSION: 1. Negative for infiltrate. 2. Right-sided Port-A-Cath. 3. Cardiomegaly. 4. Emphysematous changes. Laboratory Results WBC 4.4 10^3/uL (4.0-10.0) 12/20/21 02:52 RBC 3.78 10^6/uL (4.1-5.3) L 12/20/21 02:52 Hgb 11.5 g/dL (11.5-15.3) 12/20/21 02:52 Hct 36.8 % (37.0-47.0) L 12/20/21 02:52 MCV 97.4 fl (81-99) 12/20/21 02:52 MCH 30.4 pg (28.0-34.0) 12/20/21 02:52 MCHC 31.3 g/dL (30.0-36.0) 12/20/21 02:52 RDW 14.8 % (12.1-15.1) 12/20/21 02:52 Plt Count 122 10^3/cmm (130-400) L 12/20/21 02:52 MPV 11.3 fL (7.4-10.4) H 12/20/21 02:52 Neut % (Auto) 59.0 % 12/20/21 02:52 Lymph % (Auto) 15.8 % 12/20/21 02:52 [place] % (Auto) 23.3 % 12/20/21 02:52 Eos % (Auto) 0.7 % 12/20/21 02:52 Baso % (Auto) 0.7 % 12/20/21 02:52 Neut # (Auto) 2.58 10^3/uL (1.8-7.7) 12/20/21 02:52 Lymph # (Auto) 0.7 10^3/uL (0.8-4.8) L 12/20/21 02:52 [place] # (Auto) 1.0 10^3/uL (0.2-0.9) H 12/20/21 02:52 Eos # (Auto) 0.0 10^3/uL (0.0-0.8) 12/20/21 02:52 Baso # (Auto) 0.0 10^3/uL (0.0-0.1) 12/20/21 02:52 Nucleated RBC % (auto) 0 % 12/20/21 02:52 Nucleated RBCs # 0.0 /100WBC 12/20/21 02:52 PT 14.50 SECONDS (12.1-14.9) 12/17/21 14:50 INR 1.09 (0.8-1.2) 12/17/21 14:50 APTT 26.6 SECONDS (23.9-36.7) D 12/19/21 13:34 Specimen Type Arterial 12/17/21 09:32 Sample Site Radial, right 12/17/21 09:32 ABG pH 7.49 (7.35-7.45) H 12/17/21 09:32 ABG pCO2 39.6 mmHg (35-45) 12/17/21 09:32 ABG pO2 73.1 mmHg (80.0-100.0) L 12/17/21 09:32 ABG HCO3 30.4 mmol/L (22-26) H 12/17/21 09:32 ABG O2 Saturation 95.5 12/17/21 09:32 ABG Base Excess 6.6 mmol/L (-2.0-2.0) H 12/17/21 09:32 Royer Test Pos 12/17/21 09:32 A-a O2 Gradient 10.4 mmHg (5-10) H 12/17/21 09:32 Hematocrit 39.6 % (37-47) 12/17/21 09:32 Hgb O2 Saturation 93.9 % (95-100) L 12/17/21 09:32 Carboxyhemoglobin 1.4 %THgb (0.4-20.1) 12/17/21 09:32 Methemoglobin 0.2 % (0.4-1.5) L 12/17/21 09:32 Total Hemoglobin 12.9 g/dL (12-16) 12/17/21 09:32 Sodium 138.0 mmol/L (131-143) 12/17/21 09:32 Potassium 2.8 mmol/L (3.5-5.0) L 12/17/21 09:32 Glucose 73.0 mg/dL (70-115) 12/17/21 09:32 Ionized Calcium 1.2 mmol/L (1.1-1.4) 12/17/21 09:32 O2 Delivery Device Nc 12/17/21 09:32 O2 Liters/Min 2.0 % 12/17/21 09:32 FiO2 28.0 % 12/17/21 09:32 Cylindrical Mixer ID glc 12/17/21 09:32 Sodium 137 mmol/L (136-145) 12/20/21 02:52 Potassium 4.3 mmol/L (3.5-5.1) 12/20/21 02:52 Chloride 105 mmol/L (98-107) 12/20/21 02:52 Carbon Dioxide 24 mmol/L (22-29) 12/20/21 02:52 Anion Gap 12.3 (5-19) 12/20/21 02:52 BUN 15 mg/dL (8-23) 12/20/21 02:52 Creatinine 0.7 mg/dL (0.5-0.9) 12/20/21 02:52 GFR Calculation Not Reportable 12/20/21 02:52 Glucose 87 mg/dL (65-115) 12/20/21 02:52 POC Glucose 83 mg/dL (70-110) 12/17/21 14:00 Calculated Osmolality 284 mOsm/kg (285-295) L 12/20/21 02:52 Lactate 2.0 mmol/L (0.5-2.2) 12/15/21 19:27 Calcium 8.7 mg/dL (8.5-10.5) 12/20/21 02:52 Phosphorus 2.8 mg/dL (2.5-4.5) 12/15/21 19:27 Magnesium 1.9 mg/dL (1.7-2.3) 12/19/21 06:30 Total Bilirubin 0.8 mg/dL (0.15-1.2) 12/17/21 04:14 AST 22 U/L (0-32) 12/17/21 04:14 ALT 59 U/L (0-33) H 12/17/21 04:14 Alkaline Phosphatase 89 U/L (35-105) 12/17/21 04:14 Troponin T Baseline 78 ng/L (0-10) H 12/16/21 08:22 Troponin T 120 Minute 80.25 ng/L (0-10) H 12/16/21 09:58 Delta Troponin T 2.25 ABS# (0-10) 12/16/21 09:58 Troponin T Hi Sens 6Hr 69.82 ng/L (0-10) H 12/16/21 14:40 Troponin T Hi Sens 6Hr Delta -8.18 ng/L (0-12) L 12/16/21 14:40 C-Reactive Protein 30.8 mg/L (0.0-4.9) H 12/17/21 04:14 NT-Pro-B Natriuret Pep 01546 pg/mL (0-125) H 12/17/21 04:14 Total Protein 4.7 g/dL (6.6-8.7) L 12/17/21 04:14 Albumin 2.6 g/dL (3.5-5.2) L 12/17/21 04:14 Globulin 2.1 g/dL (1.3-4.6) 12/17/21 04:14 Vitamin B12 682 pg/mL (232-1245) 12/18/21 08:04 Procalcitonin 0.10 ng/mL (0-0.5) 12/17/21 04:14 Urine Color Colorless (Yellow) 12/15/21 23:15 Urine Appearance Clear (CLEAR) 12/15/21 23:15 Urine pH 8 (5-7) H 12/15/21 23:15 Ur Specific [place] 1.010 (1.005-1.030) 12/15/21 23:15 Urine Protein Neg (Negative) 12/15/21 23:15 Urine Glucose (UA) Norm (Normal) 12/15/21 23:15 Urine Ketones Negative (Negative) 12/15/21 23:15 Urine Blood Neg (Negative) 12/15/21 23:15 Urine Nitrate Negative (Negative) 12/15/21 23:15 Urine Bilirubin Neg (Negative) 12/15/21 23:15 Prot Sulfosalicylic Acd Negative (Negative) 12/15/21 23:15 Urine Urobilinogen Norm mg/dL (Negative) 12/15/21 23:15 Ur Leukocyte Esterase Negative (Negative) 12/15/21 23:15 Fluid Color Slight pink 12/16/21 16:25 Fluid Appearance Cloudy 12/16/21 16:25 Fluid WBC 83 /uL 12/16/21 16:25 Fluid RBC 5.000 10^3/uL 12/16/21 16:25 Fluid Hematocrit Not Reportable 12/16/21 16:25 Fld Polynuclear WBCs # 0.019 12/16/21 16:25 Fld Polynuclear WBCs % 22.900 % 12/16/21 16:25 Fl Mononucl WBCs #(Auto) 0.064 12/16/21 16:25 Fl Mononuclear % Auto 77.100 % 12/16/21 16:25 Fluid Albumin 0.5 g/dL 12/16/21 16:25 Fluid Creatinine 0.48 (0.5-0.9) L 12/16/21 16:25 Pleural pH 9.00 (6.5-7.5) H 12/16/21 16:25 Pleural Total Protein 1.0 g/dL 12/16/21 16:25 Pleural LDH 133 U/L 12/16/21 16:25 Pleural Glucose 49.0 mg/dL 12/16/21 16:25 Pleural Amylase 4.0 U/L 12/16/21 16:25 Pleural Triglycerides 23 mg/dL 12/16/21 16:25 Vancomycin Trough 18.0 ug/mL (10-15) H 12/18/21 06:50 A. galactomannan Ag EIA Cancelled 12/16/21 04:00 A. galactomannan Ag Idx Cancelled 12/16/21 04:00 Vitals Last Vital Signs Temp 97.5 F L 12/20/21 08:00 Pulse 92 12/20/21 08:00 Resp 16 12/20/21 08:00 BP 109/70 12/20/21 08:00 Pulse Ox 95 12/20/21 08:29 O2 Del Method 12/20/21 08:00 Discharge Plan Discharge Patient Disposition: Home Condition: Fair Prescriptions: New furosemide 20 mg Tablet 20 mg PO DAILY@0800 Qty: 60 3RF Eliquis 5 mg Tablet 5 mg PO BID@0900,2100 Qty: 90 4RF Rx Instructions: 10 mg twice daily for 7 days and then 5 mg twice daily onwards levofloxacin 750 mg tablet 750 mg PO DAILY 10 Days Qty: 10 0RF metronidazole 500 mg tablet 500 mg PO Q8H 7 Days Qty: 21 0RF Continued Benlysta 200 mg/mL auto-injector 200 mg SUBCUT Q7D Rx Instructions: On Wednesdays calcium carbonate [Calcium 600] 600 mg calcium (1,500 mg) tablet 600 mg PO DAILY omega-3 fatty acids [Fish Oil Concentrate] 1,000 mg capsule 1,000 mg PO DAILY cholecalciferol (vitamin D3) 1,000 unit capsule 1,000 unit PO DAILY Natural Tears (PF) 0.1-0.3 % dropperette 1 drop ophthalmic (eye) ONCE hydroxychloroquine 200 mg tablet 200 mg PO DAILY leflunomide 20 mg tablet 20 mg PO DAILY atorvastatin 20 mg tablet 20 mg PO DAILY escitalopram oxalate 10 mg tablet 10 mg PO DAILY zinc 50 mg tablet 50 mg PO DAILY amitriptyline 50 mg Tablet 50 mg PO BEDTIME omeprazole 40 mg Capsule,Delayed Release(Dr/Ec) 40 mg PO DAILY vitamin E 400 unit Tablet 400 unit PO DAILY albuterol sulfate 90 mcg/actuation Hfa Aerosol Inhaler 2 puff INHALATION Q4H PRN (Reason: Shortness Of Breath) Qty: 6 3RF Discontinued potassium gluconate 595 mg (99 mg) tablet extended release 595 mg PO DAILY aspirin 325 mg tablet 325 mg PO DAILY isosorbide mononitrate 30 mg tablet extended release 24 hr 15 mg PO DAILY Qty: 15 0RF Rx Instructions: MUST have follow-up with new provider for further refills metoprolol succinate 25 mg tablet extended release 24 hr 12.5 mg PO DAILY Qty: 15 0RF Rx Instructions: MUST have follow-up with new provider for further refills prednisone 10 mg Tablet 10 mg PO DAILY Discharge Orders: Discharge Order (Routine); Ordered 12/20/21 Ordered By: Rowena Curtis Other Ambulatory Orders: CT chest wo con [id number] (Routine) Timeframe: 3 Weeks Facility: [facility] - Location: Radiology [facility] Ordered By: Rowena Curtis Referrals: Bong Simmons DO [Physician] - Shy [place] FNP [Nurse Practitioner] - 2 weeks John Vaughan MD [Physician] - 12/24/21 8:30 am Patient Instructions: Opioid Safety Discharge Attestations Time Spent in Discharge Care*: less than 30 min Quality Metrics Clinical Quality Measures [ No reported AMI, CVA or VTE this stay] Coding Level of Care Code Acute Chg FW OH note Diagnoses Pneumonia J18.9 CHF NYHA class III I50.9
--- NOTE | 2021-12-20 11:04 | PC.SOCIAL ---
IMM update IMM updated with patient and daughter. Verbalized an understanding. Copy Pg 2 provided. Initialled, dated, timed, and placed in chart.
[2021-12-20 12:00] VITALS: BP 101/66; PULSE 93; RESP 18; TEMP 36.5; O2SAT 95
[2021-12-20 13:03] VITALS: BP 101/66; PULSE 93; RESP 18; TEMP 36.5; O2SAT 95
[2021-12-20 18:53] LABS: Histoplasma Antigen (Quant) NONE DETECTED; Histoplasma Antigen Interpreta NEGATIVE; Histoplasma Antigen Specimen URINE
[2021-12-23 17:32] LABS: Fungitell 1-3-B Glucan Assay <31 pg/mL; Interpretation NEGATIVE
[2021-12-26 18:29] LABS: Aspergillus AG,EIA,Serum NOT DETECTED; Aspergillus Galactomannan Inde <0.50
[2021-12-26 18:29] LABS: Aspergillus AG,EIA,Serum NOT DETECTED; Aspergillus Galactomannan Inde <0.50
[2021-12-27 19:27] LABS: Aspergillus Source WHOLE BLOOD; Aspergillus Supp NOT DETECTED; Aspergillus Terreus DNA NOT DETECTED
== END 2021-12-20 12:45 | disposition home or self-care (01) | DRG 193 ==
LOC: ER 22:22 → MEDSURG 22:26
PROVIDERS: Family Medicine; Internal Medicine Pulmonary Disease; Admitting Provider Student in an Organized Health Care Education/Training Program; Emergency Provider Emergency Medicine; PCP Electrodiagnostic Medicine; Visit Provider Internal Medicine
DX: J15.9 Unspecified bacterial pneumonia (principal); I26.99 Other pulmonary embolism without acute cor pulmonale; I50.21 Acute systolic (congestive) heart failure; J90 Pleural effusion, not elsewhere classified; R18.8 Other ascites; D84.821 Immunodeficiency due to drugs; I42.9 Cardiomyopathy, unspecified; I24.8 Other forms of acute ischemic heart disease; M32.9 Systemic lupus erythematosus, unspecified; Z79.899 Other long term (current) drug therapy; Z91.81 History of falling; Z86.16 Personal history of COVID-19; R91.8 Other nonspecific abnormal finding of lung field; S22.080D Wedge compression fracture of T11-T12 vertebra, subsequent encounter for fracture with routine healing; S32.010D Wedge compression fracture of first lumbar vertebra, subsequent encounter for fracture with routine healing; S32.020D Wedge compression fracture of second lumbar vertebra, subsequent encounter for fracture with routine healing; W19.XXXD Unspecified fall, subsequent encounter; E78.5 Hyperlipidemia, unspecified; I25.2 Old myocardial infarction; I95.9 Hypotension, unspecified; E87.6 Hypokalemia; M85.80 Other specified disorders of bone density and structure, unspecified site; Z86.73 Personal history of transient ischemic attack (TIA), and cerebral infarction without residual deficits; Z92.3 Personal history of irradiation; Z85.3 Personal history of malignant neoplasm of breast; I35.0 Nonrheumatic aortic (valve) stenosis
CPT/HCPCS: 32555; 36415; 36416; 36591; 36600; 70450; 71045; 71260; 73630; 74177; 78452; 80048; 80051; 80053; 80202; 81003; 82042; 82150; 82330; 82570; 82607; 82805; 82945; 82962; 83605; 83615; 83735; 83880; 83986; 84100; 84145; 84157; 84478; 84484; 85014; 85025; 85049; 85610; 85730; 86140; 86403; 86606; 87015; 87040; 87070; 87075; 87116; 87205; 87206; 87305; 87385; 87449; 87641; 87798; 87801; 88108; 89050; 93005; 93017; 93306; 93970; 94664; 94760; 96365; 96372; 96375; 97116; 97161; 97530; 99285; A9500; J0692; J1644; J1650; J1940; J1956; J2785; J3370; J7120; J7512; Q9967

== ENCOUNTER → 2022-01-01 11:00 | Outpatient (BNVA) | payer MEDICARE, SELFPAY | PROVIDERS: PCP Electrodiagnostic Medicine; Visit Provider Family Medicine | DX: I26.99 Other pulmonary embolism without acute cor pulmonale (principal); D69.6 Thrombocytopenia, unspecified; F41.8 Other specified anxiety disorders; I50.20 Unspecified systolic (congestive) heart failure | CPT/HCPCS: 80053; 80061; 83735; 84443; 85025 ==

== ENCOUNTER 2022-01-02 16:55 | Outpatient (CLI) | payer MEDICARE, OTHER, SELFPAY ==
--- NOTE | 2022-01-02 17:00 | CTR_ITS ---
PROCEDURE INFORMATION: Exam: CT Chest Without Contrast; Diagnostic Exam date and time: 01/02/2022 5:09 PM Age: 71 years old Clinical indication: Abnormal findings; Abnormal radiologic exam of lung or chest; Prior surgery; Surgery type: Lumpectomy, port; Patient HX: HX of breast cancer; Additional info: 4 week f/u from prior CT TECHNIQUE: Imaging protocol: Diagnostic computed tomography of the chest without contrast. Total images: 751 Radiation optimization: All CT scans at this facility use at least one of these dose optimization techniques: automated exposure control; mA and/or kV adjustment per patient size (includes targeted exams where dose is matched to clinical indication); or iterative reconstruction. COMPARISON: CT chest abd pel w con* 12/15/2021 8:27 PM RADIATION DOSE METRICS: Total DLP (mGy-cm): 609.15 FINDINGS: Tubes, catheters and devices: A right infusion port is present. Lungs: Focal areas of irregular interstitial thickening and traction bronchiectasis seen within the lungs bilaterally felt to represent sequela prior inflammatory disease. These appear improved compared with prior exam. Small bilateral pulmonary nodules appear unchanged measuring 4 mm and smaller. Pleural spaces: Improved left pleural fluid collection and adjacent lung opacity. Minimal left pleural fluid remaining. Heart: No coronary arterial calcification is detected. Lymph nodes: Unremarkable. No enlarged lymph nodes. Vasculature: Mild atherosclerotic disease is evident. Bones/joints: Multiple Schmorl's nodes noted. Chronic compression fracture noted at L1. Soft tissues: Skin thickening and fatty stranding noted within the left breast felt to be related to treatment and unchanged from prior exam. CT/CT chest wo con [id number] IMPRESSION: 1. Skin thickening and fatty stranding noted within the left breast felt to be related to treatment and unchanged from prior exam. 2. Focal areas of irregular interstitial thickening and traction bronchiectasis seen within the lungs bilaterally felt to represent sequela prior inflammatory disease. These appear improved compared with prior exam. 3. Small bilateral pulmonary nodules appear unchanged measuring 4 mm and smaller. 4. Improved left pleural fluid collection and adjacent lung opacity. Minimal left pleural fluid remaining.
--- NOTE | 2022-01-02 17:14 | XRR_ITS ---
PROCEDURE INFORMATION: Exam: XR Chest Exam date and time: 01/02/2022 5:14 PM Age: 71 years old Clinical indication: Cough and shortness of breath; Prior surgery; Surgery type: Chemo port; Patient HX: HX of left breast CA; Additional info: Rule out pneumonia TECHNIQUE: Imaging protocol: Radiologic exam of the chest. Views: 2 views. Total images: 1 COMPARISON: CT chest wo con [id number] 01/02/2022 5:09 PM FINDINGS: Tubes, catheters and devices: A right infusion port is present. Lungs: Unremarkable. No consolidation. Pleural spaces: Unremarkable. No pleural effusion. No pneumothorax. Heart/Mediastinum: Unremarkable. No cardiomegaly. Bones/joints: Osseous structures are unchanged from the prior exam. Diffuse osteopenia noted. Chronic compression fracture noted at L1. XR/XR chest 2V* [id number] IMPRESSION: No acute cardiopulmonary process.
== END 2022-01-02 16:56 | disposition home or self-care (01) ==
LOC: RAD 16:57
PROVIDERS: PCP Family Medicine; Visit Provider Internal Medicine Pulmonary Disease
DX: I50.20 Unspecified systolic (congestive) heart failure; I35.0 Nonrheumatic aortic (valve) stenosis; J18.9 Pneumonia, unspecified organism; R29.6 Repeated falls; Z86.73 Personal history of transient ischemic attack (TIA), and cerebral infarction without residual deficits; R42 Dizziness and giddiness
CPT/HCPCS: 71046; 71250; 99204; 99213

== ENCOUNTER 2022-01-25 16:42 | Inpatient (IN) | payer MEDICARE, SELFPAY ==
[2022-01-25] VITALS (21 sets, daily range): BP systolic 94–119; BP diastolic 50–84; PULSE 70–99; RESP 10–34; TEMP 35.7; O2SAT 88–98; BMI 21.9
--- NOTE | 2022-01-25 17:15 | XRR_ITS ---
PROCEDURE INFORMATION: Exam: XR Chest Exam date and time: 01/25/2022 5:21 PM Age: 71 years old Clinical indication: Dyspnea and shortness of breath TECHNIQUE: Imaging protocol: Radiologic exam of the chest. Views: 1 view. COMPARISON: CR XR chest 2V* [id number] 01/02/2022 5:14 PM FINDINGS: Tubes, catheters and devices: There is a right-sided chest port whose tip terminates in the right atrium unchanged. Lungs: There is pulmonary vascular redistribution and mild pulmonary congestion. Pleural spaces: Unremarkable. No pleural effusion. No pneumothorax. Heart/Mediastinum: Cardiac silhouette is diffusely enlarged and significantly increased in size from previous exam raising concern for either progressive cardiomyopathy or pericardial effusion. Bones/joints: Unremarkable for age. XR/XR chest 1V portable [id number] IMPRESSION: Cardiomegaly increased in size from previous exam with mild pulmonary congestion.
--- NOTE | 2022-01-25 17:37 | W.ED.GENADLT ---
Documented by User: Justin Rosales MD 01/25/22 18:22 HPI - General Adult General: Chief complaint: General Medical Stated complaint: Flu Symptoms Time Seen by Provider: 01/25/22 16:53 History of Present Illness: 71-year-old female brought in by family for lethargy, hypotension, breathing hard, generalized weakness. She was hospitalized in December with multiple diagnoses. She had recently recovered from COVID at the time of her admission. She was found to have heart failure with transudative left-sided pleural effusion, cavitary lung nodule that was seen by pulmonology and is being treated with Flagyl and Levaquin, lupus which is being treated with Belimumab, hypotension, among others. Daughter endorses her blood pressure has been around 85-90 for most of the time she has been home since discharge. She has gotten progressively weak, not eating and drinking much, urine output has dropped off. I noted that she looked extremely pale and daughter states that she agrees. The patient is on Eliquis which is a new medication for a small pulmonary embolism she had. Patient is obtunded. I did a bedside rectal exam and this was Hemoccult positive Review of Systems Narrative: History of present illness is limited to what ever the family can contribute due to the patient's mental status. They note difficulty with ambulation and transfers, weakness, decreased appetite, increased respiratory rate, pallor, low blood pressure, and general failure to thrive. PFS ED PFSH: Medical History Aortic stenosis Cavitary lesion of lung CHF NYHA class III History of breast cancer History of pulmonary hypertension History of TIA (transient ischemic attack) Hx of radiation therapy Hyperlipidemia LDL goal <100 Immunosuppression NSTEMI (non-ST elevated myocardial infarction) Osteopenia Other specified disorders involving the immune mechanism, not elsewhere classified Pneumonia Port-A-Cath in place 03/2016 Pulmonary embolism Systemic lupus erythematosus (SLE) in adult Systemic lupus erythematosus, unspecified Systolic CHF Varicose veins of bilateral lower extremities with other complications Vitamin D deficiency, unspecified Surgical History H/O brain surgery H/O lumpectomy 2007 History of hysterectomy 1981 S/P arthroscopy of shoulder Family History Other Cancer Hyperlipidemia Migraine headache Osteoarthritis Rheumatoid arthritis Stroke Social History Smoking and tobacco status: never smoked Second hand smoke exposure: No Smoking risk assessment/counseling performed?: No Alcohol intake: current Alcohol intake frequency: holidays/special occasions only Desire information about alcohol rehabilitation?: No Desire information about substance/drug rehabilitation?: No History of recent travel: No Female Reproductive History: Spontaneous abortions: No Physical Exam Const: EXAM LIMITATIONS: altered mental status and physical limitations GENERAL APPEARANCE: lethargic, ill appearing and frail appearing; not diaphoretic and not Edematous ORIENTATION/CONSCIOUSNESS: Yes confused, Yes patient obtunded and Yes lethargic HENMT: COMMON NORMALS: normocephalic, atraumatic and external ears normal HEAD & SCALP: normocephalic and atraumatic EXTERNAL EAR: Yes external ears normal OTHER: Dry mucosa Eye: COMMON NORMALS: EOMs intact bilaterally, conjunctivae normal and no scleral icterus CONJUNCTIVA: Yes conjunctivae normal Neck/C-Spine: GENERAL: Yes normal visual inspection and Yes trachea midline Resp: OTHER: Tachypnea, symmetric chest rise, accessory muscle usage, basilar rales GI: COMMON NORMALS: Soft to palpation and non-tender PALPATION: Yes Soft to palpation and No Guarding due to palpation present (GI) OTHER: Rectal exam reveals very minimal stool in the rectal vault. This is Hemoccult positive Extremity: COMMON NORMALS: normal to inspection Neuro: SENSORIUM/ORIENTATION: Yes lethargic SPEECH: speech normal OTHER: Patient is lethargic, eyes closed, difficult to understand speech, falls asleep quickly, briefly moves her arms and legs. She is extremely weak throughout and cannot even hold herself up using the rails in a seated position. Her pupils are equal round and reactive to light. Skin: OTHER: Diffuse pallor Course Vital Signs: Vital signs: Vital Signs Temperature 96.3 F L 01/25/22 16:46 Pulse Rate 70 01/25/22 18:28 Respiratory Rate 22 H 01/25/22 18:28 Blood Pressure 107/52 01/25/22 18:28 Pulse Oximetry 96 01/25/22 18:28 Oxygen Delivery Me thod 01/25/22 18:28 Oxygen Flow Rate 1 01/25/22 16:46 MDM - General Adult Medical Decision Making 71 yo female with pallor, drowsiness, low blood pressure, hemoccult positive stools. Lab Data 01/25/22 17:54 01/25/22 17:54 Radiology Impressions Chest X-Ray 01/25/22 17:15 IMPRESSION: Cardiomegaly increased in size from previous exam with mild pulmonary congestion. Abdomen/Pelvis CT 01/25/22 19:07 IMPRESSION: 1. Negative for acute abdominopelvic pathology. 2. Intrathoracic fluid overload changes. Laboratory Results WBC 4.7 10^3/uL (4.0-10.0) 01/25/22 17:54 RBC 3.80 10^6/uL (4.1-5.3) L 01/25/22 17:54 Hgb 9.8 g/dL (11.5-15.3) L 01/25/22 20:24 Hct 31.2 % (37.0-47.0) L 01/25/22 20:24 MCV 97.4 fl (81-99) 01/25/22 17:54 MCH 30.5 pg (28.0-34.0) 01/25/22 17:54 MCHC 31.4 g/dL (30.0-36.0) 01/25/22 17:54 RDW 15.8 % (12.1-15.1) H 01/25/22 17:54 Plt Count 169 10^3/cmm (130-400) 01/25/22 17:54 MPV 11.8 fL (7.4-10.4) H 01/25/22 17:54 Neut % (Auto) 77.2 % 01/25/22 17:54 Lymph % (Auto) 7.6 % 01/25/22 17:54 [place] % (Auto) 14.0 % 01/25/22 17:54 Eos % (Auto) 0.0 % 01/25/22 17:54 Baso % (Auto) 0.4 % 01/25/22 17:54 Neut # (Auto) 3.65 10^3/uL (1.8-7.7) 01/25/22 17:54 Lymph # (Auto) 0.4 10^3/uL (0.8-4.8) L 01/25/22 17:54 [place] # (Auto) 0.7 10^3/uL (0.2-0.9) 01/25/22 17:54 Eos # (Auto) 0.0 10^3/uL (0.0-0.8) 01/25/22 17:54 Baso # (Auto) 0.0 10^3/uL (0.0-0.1) 01/25/22 17:54 Nucleated RBC % (auto) 0 % 01/25/22 17:54 Nucleated RBCs # 0.0 /100WBC 01/25/22 17:54 Sodium 137 mmol/L (136-145) 01/25/22 17:54 Potassium 4.9 mmol/L (3.5-5.1) 01/25/22 17:54 Chloride 100 mmol/L (98-107) 01/25/22 17:54 Carbon Dioxide 11 mmol/L (22-29) L 01/25/22 17:54 Anion Gap 30.9 (5-19) H 01/25/22 17:54 BUN 39 mg/dL (8-23) H 01/25/22 17:54 Creatinine 1.5 mg/dL (0.5-0.9) H 01/25/22 17:54 GFR Calculation Not Reportable 01/25/22 17:54 Glucose 31 mg/dL (65-115) L* 01/25/22 17:54 POC Glucose 147 mg/dL (70-110) H 01/25/22 19:24 Calculated Osmolality 290 mOsm/kg (285-295) 01/25/22 17:54 Lactate 11.8 mmol/L (0.5-2.2) H* 01/25/22 17:54 Calcium 10.0 mg/dL (8.5-10.5) 01/25/22 17:54 Magnesium 2.8 mg/dL (1.7-2.3) H 01/25/22 17:54 NT-Pro-B Natriuret Pep 55033 pg/mL (0-125) H 01/25/22 17:54 Urine Color Yellow (Yellow) 01/25/22 18:13 Urine Appearance Clear (CLEAR) 01/25/22 18:13 Urine pH 5 (5-7) 01/25/22 18:13 Ur Specific [place] 1.030 (1.005-1.030) 01/25/22 18:13 Urine Protein 2+ (Negative) H 01/25/22 18:13 Urine Glucose (UA) Norm (Normal) 01/25/22 18:13 Urine Ketones 1+ (Negative) H 01/25/22 18:13 Urine Blood Neg (Negative) 01/25/22 18:13 Urine Nitrate Negative (Negative) 01/25/22 18:13 Urine Bilirubin 1+ (Negative) H 01/25/22 18:13 Urine Urobilinogen 1 mg/dL (Negative) H 01/25/22 18:13 Ur Leukocyte Esterase Trace (Negative) H 01/25/22 18:13 Urine RBC 0-4 /hpf (0-2) H 01/25/22 18:13 Urine WBC 10-15 /hpf (0-5) H 01/25/22 18:13 Ur Squamous Epith Cells 5-10 /hpf (0-5) H 01/25/22 18:13 Amorphous Sediment Not Reportable 01/25/22 18:13 Urine Bacteria 1+ /hpf (NONE) H 01/25/22 18:13 Hyaline Casts 0-4 /lpf H 01/25/22 18:13 Influenza Type A Ag negative (Negative) 01/25/22 18:42 Influenza Type B Ag negative (Negative) 01/25/22 18:42 SARS-CoV-2 Ag (Rapid) negative (Negative) 01/25/22 19:22 Blood Type B Positive 01/25/22 17:54 Rho(D) Type Positive 01/25/22 17:54 Discharge Plan Discharge Patient Disposition: Admitted As Inpatient Clinical Impression: Weakness, Hypoglycemia, GI bleed, Elevated lactic acid level Condition: Stable Prescriptions: No Action Benlysta 200 mg/mL auto-injector 200 mg SUBCUT Q7D Rx Instructions: On Wednesdays calcium carbonate [Calcium 600] 600 mg calcium (1,500 mg) tablet 600 mg PO DAILY omega-3 fatty acids [Fish Oil Concentrate] 1,000 mg capsule 1,000 mg PO DAILY cholecalciferol (vitamin D3) 1,000 unit capsule 1,000 unit PO DAILY Natural Tears (PF) 0.1-0.3 % dropperette 1 drop ophthalmic (eye) ONCE hydroxychloroquine 200 mg tablet 200 mg PO DAILY leflunomide 20 mg tablet 20 mg PO DAILY zinc 50 mg tablet 50 mg PO DAILY furosemide 20 mg tablet 10 mg PO DAILY Qty: 60 3RF bupropion HCl [Wellbutrin SR] 150 mg tablet sustained-release 12 hr 150 mg PO QAM Qty: 30 2RF magnesium 200 mg tablet 200 mg PO DAILY Qty: 30 1RF mirtazapine 15 mg tablet 15 mg PO DAILY Qty: 30 2RF (DME) Knee high compression Stockings See Rx Instructions .Route .MEDSUPPLY Qty: 2 0RF Rx Instructions: Knee high stockings, 10-20mmHg range. Wear at all times except when showering, in bed or if needing laundered. (DME) Front wheeled walker See Rx Instructions .Route .MEDSUPPLY Qty: 1 0RF Rx Instructions: As directed omeprazole 40 mg Capsule,Delayed Release(Dr/Ec) 40 mg PO DAILY vitamin E 400 unit Tablet 400 unit PO DAILY Eliquis 5 mg Tablet 5 mg PO BID@0900,2100 Qty: 90 4RF Rx Instructions: 10 mg twice daily for 7 days and then 5 mg twice daily onwards albuterol sulfate 90 mcg/actuation Hfa Aerosol Inhaler 2 puff INHALATION Q4H PRN (Reason: Shortness Of Breath) Qty: 6 3RF potassium chloride 10 mEq tablet extended release 10 meq PO DAILY Qty: 60 2RF Rx Instructions: Take potassium when you are taking Lasix Referrals: Bong Simmons DO [Primary Care Provider] - Coding Level of Care Code ED Electrotype Finisher for Chg Fwd Exam Detailed Documented by User: Ranjit Torres MD 01/25/22 20:45 HPI - General Adult General: Chief complaint: General Medical Stated complaint: Flu Symptoms Time Seen by Provider: 01/25/22 16:53 PFSH ED PFSH: Medical History Aortic stenosis Cavitary lesion of lung CHF NYHA class III History of breast cancer History of pulmonary hypertension History of TIA (transient ischemic attack) Hx of radiation therapy Hyperlipidemia LDL goal <100 Immunosuppression NSTEMI (non-ST elevated myocardial infarction) Osteopenia Other specified disorders involving the immune mechanism, not elsewhere classified Pneumonia Port-A-Cath in place 03/2016 Pulmonary embolism Systemic lupus erythematosus (SLE) in adult Systemic lupus erythematosus, unspecified Systolic CHF Varicose veins of bilateral lower extremities with other complications Vitamin D deficiency, unspecified Surgical History H/O brain surgery H/O lumpectomy 2007 History of hysterectomy 1982 S/P arthroscopy of shoulder Family History Other Cancer Hyperlipidemia Migraine headache Osteoarthritis Rheumatoid arthritis Stroke Social History Smoking and tobacco status: never smoked Second hand smoke exposure: No Smoking risk assessment/counseling performed?: No Alcohol intake: current Alcohol intake frequency: holidays/special occasions only Desire information about alcohol rehabilitation?: No Desire information about substance/drug rehabilitation?: No History of recent travel: No Course Vital Signs: Vital signs: Vital Signs Temperature 96.3 F L 01/25/22 16:46 Pulse Rate 70 01/25/22 18:28 Respiratory Rate 22 H 01/25/22 18:28 Blood Pressure 107/52 01/25/22 18:28 Pulse Oximetry 96 01/25/22 18:28 Oxygen Delivery Me thod 01/25/22 18:28 Oxygen Flow Rate 1 01/25/22 16:46 MDM - General Adult Medical Decision Making 71 yo female with pallor, drowsiness, low blood pressure, hemoccult positive stools. Patient presents here generalized weakness she was altered likely due to hypoglycemia her mentation is improved currently she does have an elevated lactate heme positive stool I did speak to the hospitalist will admit at this time. Lab Data 01/25/22 17:54 01/25/22 17:54 Radiology Impressions Chest X-Ray 01/25/22 17:15 IMPRESSION: Cardiomegaly increased in size from previous exam with mild pulmonary congestion. Abdomen/Pelvis CT 01/25/22 19:07 IMPRESSION: 1. Negative for acute abdominopelvic pathology. 2. Intrathoracic fluid overload changes. Laboratory Results WBC 4.7 10^3/uL (4.0-10.0) 01/25/22 17:54 RBC 3.80 10^6/uL (4.1-5.3) L 01/25/22 17:54 Hgb 9.8 g/dL (11.5-15.3) L 01/25/22 20:24 Hct 31.2 % (37.0-47.0) L 01/25/22 20:24 MCV 97.4 fl (81-99) 01/25/22 17:54 MCH 30.5 pg (28.0-34.0) 01/25/22 17:54 MCHC 31.4 g/dL (30.0-36.0) 01/25/22 17:54 RDW 15.8 % (12.1-15.1) H 01/25/22 17:54 Plt Count 169 10^3/cmm (130-400) 01/25/22 17:54 MPV 11.8 fL (7.4-10.4) H 01/25/22 17:54 Neut % (Auto) 77.2 % 01/25/22 17:54 Lymph % (Auto) 7.6 % 01/25/22 17:54 [place] % (Auto) 14.0 % 01/25/22 17:54 Eos % (Auto) 0.0 % 01/25/22 17:54 Baso % (Auto) 0.4 % 01/25/22 17:54 Neut # (Auto) 3.65 10^3/uL (1.8-7.7) 01/25/22 17:54 Lymph # (Auto) 0.4 10^3/uL (0.8-4.8) L 01/25/22 17:54 [place] # (Auto) 0.7 10^3/uL (0.2-0.9) 01/25/22 17:54 Eos # (Auto) 0.0 10^3/uL (0.0-0.8) 01/25/22 17:54 Baso # (Auto) 0.0 10^3/uL (0.0-0.1) 01/25/22 17:54 Nucleated RBC % (auto) 0 % 01/25/22 17:54 Nucleated RBCs # 0.0 /100WBC 01/25/22 17:54 Sodium 137 mmol/L (136-145) 01/25/22 17:54 Potassium 4.9 mmol/L (3.5-5.1) 01/25/22 17:54 Chloride 100 mmol/L (98-107) 01/25/22 17:54 Carbon Dioxide 11 mmol/L (22-29) L 01/25/22 17:54 Anion Gap 30.9 (5-19) H 01/25/22 17:54 BUN 39 mg/dL (8-23) H 01/25/22 17:54 Creatinine 1.5 mg/dL (0.5-0.9) H 01/25/22 17:54 GFR Calculation Not Reportable 01/25/22 17:54 Glucose 31 mg/dL (65-115) L* 01/25/22 17:54 POC Glucose 147 mg/dL (70-110) H 01/25/22 19:24 Calculated Osmolality 290 mOsm/kg (285-295) 01/25/22 17:54 Lactate 11.8 mmol/L (0.5-2.2) H* 01/25/22 17:54 Calcium 10.0 mg/dL (8.5-10.5) 01/25/22 17:54 Magnesium 2.8 mg/dL (1.7-2.3) H 01/25/22 17:54 NT-Pro-B Natriuret Pep 01390 pg/mL (0-125) H 01/25/22 17:54 Urine Color Yellow (Yellow) 01/25/22 18:13 Urine Appearance Clear (CLEAR) 01/25/22 18:13 Urine pH 5 (5-7) 01/25/22 18:13 Ur Specific [place] 1.030 (1.005-1.030) 01/25/22 18:13 Urine Protein 2+ (Negative) H 01/25/22 18:13 Urine Glucose (UA) Norm (Normal) 01/25/22 18:13 Urine Ketones 1+ (Negative) H 01/25/22 18:13 Urine Blood Neg (Negative) 01/25/22 18:13 Urine Nitrate Negative (Negative) 01/25/22 18:13 Urine Bilirubin 1+ (Negative) H 01/25/22 18:13 Urine Urobilinogen 1 mg/dL (Negative) H 01/25/22 18:13 Ur Leukocyte Esterase Trace (Negative) H 01/25/22 18:13 Urine RBC 0-4 /hpf (0-2) H 01/25/22 18:13 Urine WBC 10-15 /hpf (0-5) H 01/25/22 18:13 Ur Squamous Epith Cells 5-10 /hpf (0-5) H 01/25/22 18:13 Amorphous Sediment Not Reportable 01/25/22 18:13 Urine Bacteria 1+ /hpf (NONE) H 01/25/22 18:13 Hyaline Casts 0-4 /lpf H 01/25/22 18:13 Influenza Type A Ag negative (Negative) 01/25/22 18:42 Influenza Type B Ag negative (Negative) 01/25/22 18:42 SARS-CoV-2 Ag (Rapid) negative (Negative) 01/25/22 19:22 Blood Type B Positive 01/25/22 17:54 Rho(D) Type Positive 01/25/22 17:54 Critical Care Time Critical Care Time: Critical Care Time: Yes Total Critical Care Time: 55 Attestation: The high probability of a clinically significant, sudden or life threatening deterioration of the patient's cv system(s) required my full and direct attention, intervention and personal management. The critical care time is as shown. This time is in addition to time spent performing any reported procedures but includes the following: [x] Data and vital sign review and interpretation [x] Patient assessment, examination and intervention [x] Documentation [x] Medication orders and management Discharge Plan Discharge Patient Disposition: Admitted As Inpatient Clinical Impression: Weakness, Hypoglycemia, GI bleed, Elevated lactic acid level Condition: Stable Prescriptions: No Action Benlysta 200 mg/mL auto-injector 200 mg SUBCUT Q7D Rx Instructions: On Wednesdays calcium carbonate [Calcium 600] 600 mg calcium (1,500 mg) tablet 600 mg PO DAILY omega-3 fatty acids [Fish Oil Concentrate] 1,000 mg capsule 1,000 mg PO DAILY cholecalciferol (vitamin D3) 1,000 unit capsule 1,000 unit PO DAILY Natural Tears (PF) 0.1-0.3 % dropperette 1 drop ophthalmic (eye) ONCE hydroxychloroquine 200 mg tablet 200 mg PO DAILY leflunomide 20 mg tablet 20 mg PO DAILY zinc 50 mg tablet 50 mg PO DAILY furosemide 20 mg tablet 10 mg PO DAILY Qty: 60 3RF bupropion HCl [Wellbutrin SR] 150 mg tablet sustained-release 12 hr 150 mg PO QAM Qty: 30 2RF magnesium 200 mg tablet 200 mg PO DAILY Qty: 30 1RF mirtazapine 15 mg tablet 15 mg PO DAILY Qty: 30 2RF (DME) Knee high compression Stockings See Rx Instructions .Route .MEDSUPPLY Qty: 2 0RF Rx Instructions: Knee high stockings, 10-20mmHg range. Wear at all times except when showering, in bed or if needing laundered. (DME) Front wheeled walker See Rx Instructions .Route .MEDSUPPLY Qty: 1 0RF Rx Instructions: As directed omeprazole 40 mg Capsule,Delayed Release(Dr/Ec) 40 mg PO DAILY vitamin E 400 unit Tablet 400 unit PO DAILY Eliquis 5 mg Tablet 5 mg PO BID@0900,2100 Qty: 90 4RF Rx Instructions: 10 mg twice daily for 7 days and then 5 mg twice daily onwards albuterol sulfate 90 mcg/actuation Hfa Aerosol Inhaler 2 puff INHALATION Q4H PRN (Reason: Shortness Of Breath) Qty: 6 3RF potassium chloride 10 mEq tablet extended release 10 meq PO DAILY Qty: 60 2RF Rx Instructions: Take potassium when you are taking Lasix Referrals: Bong Simmons DO [Primary Care Provider] - Coding Level of Care Code ED Electrotype Finisher for Chg Fwd Exam Detailed
[2022-01-25 18:04] LABS: Basophils % 0.4 %; Hemoglobin 11.6 g/dL (11.5-15.3); Lymphocytes # 0.4 10^3/uL (0.8-4.8); Lymphocytes % 7.6 %; Mean Corpuscular HGB Conc 31.4 g/dL (30.0-36.0); Mean Corpuscular Hemoglobin 30.5 pg (28.0-34.0); Mean Corpuscular Volume 97.4 fl (81-99); Mean Platelet Volume 11.8 fL (7.4-10.4); Monocytes # 0.7 10^3/uL (0.2-0.9); Neutrophils # 3.65 10^3/uL (1.8-7.7); Neutrophils % 77.2 %; Nucleated Red Blood Cells % 0 %; Platelet Count 169 10^3/cmm (130-400); Red Cell Distribution Width 15.8 % (12.1-15.1); White Blood Count 4.7 10^3/uL (4.0-10.0)
[2022-01-25 18:42] LABS: Lactate (Lactic Acid level) 11.8 mmol/L (0.5-2.2)
[2022-01-25 18:43] LABS: Anion Gap 30.9 (5-19); Blood Urea Nitrogen 39 mg/dL (8-23); Carbon Dioxide 11 mmol/L (22-29); Chloride 100 mmol/L (98-107); Magnesium 2.8 mg/dL (1.7-2.3); Osmolality Calculated 290 mOsm/kg (285-295); Potassium 4.9 mmol/L (3.5-5.1); Sodium 137 mmol/L (136-145)
[2022-01-25 18:51] LABS: Glucose 31 mg/dL (65-115)
--- NOTE | 2022-01-25 19:07 | CTR_ITS ---
PROCEDURE INFORMATION: Exam: CT Abdomen And Pelvis With Contrast Exam date and time: 01/25/2022 7:52 PM Age: 71 years old Clinical indication: Pain and abnormal findings; Abnormal lab test; Other: Lactate 11.8; Abdominal pain; Generalized; Prior surgery; Surgery type: Hysterectomy; Patient HX: Diffuse abd pain. Hypotensive. Lactate of 11.8. History of breast cancer. TECHNIQUE: Imaging protocol: Computed tomography of the abdomen and pelvis with contrast. Radiation optimization: All CT scans at this facility use at least one of these dose optimization techniques: automated exposure control; mA and/or kV adjustment per patient size (includes targeted exams where dose is matched to clinical indication); or iterative reconstruction. Contrast material: OMNI 350; Contrast volume: 75 ml; Contrast route: INTRAVENOUS (IV); COMPARISON: CT chest abd pel w con* 12/15/2021 8:27 PM RADIATION DOSE METRICS: Total DLP (mGy-cm): 420.27 FINDINGS: Pleural spaces: Small to moderate volume bilateral pleural effusions. Liver: Normal. No mass. Gallbladder and bile ducts: Normal. No calcified stones. No ductal dilation. Pancreas: Normal. No ductal dilation. Spleen: Normal. No splenomegaly. Adrenal glands: Normal. No mass. Kidneys and ureters: Normal. No hydronephrosis. Stomach and bowel: Unremarkable. No obstruction. No mucosal thickening. Appendix: No evidence of appendicitis. Intraperitoneal space: Unremarkable. No free air. No significant fluid collection. Vasculature: Unremarkable. No abdominal aortic aneurysm. Lymph nodes: Unremarkable. No enlarged lymph nodes. Urinary bladder: Unremarkable as visualized. Reproductive: Hysterectomy. Bones/joints: Pre-existing T11, L1, L2 vertebral compression deformity stable in height loss from prior. No acute fracture. Soft tissues: Unremarkable. CT/CT abdomen pelvis w con* [id number] IMPRESSION: 1. Negative for acute abdominopelvic pathology. 2. Intrathoracic fluid overload changes.
[2022-01-25 19:10] LABS: NT Pro B Type Natriuretic Pept 44835 pg/mL (0-125)
[2022-01-25] MEDS: dextrose 50% syringe 50 mL IVP (19:15)
[2022-01-25] MEDS: sodium chloride 0.9% 1,000 ML 999 ML IV (19:20)
[2022-01-25 19:21] LABS: Add Urine Microscopic? YES; Bilirubin Urine 1+ (Negative); Blood Urine Neg (Negative); Glucose Urine UA Norm (Normal); Ketones Urine 1+ (Negative); Leukocyte Esterase Urine Trace (Negative); Nitrate Urine Negative (Negative); Protein Urine 2+ (Negative); Urine Appearance Clear (CLEAR); Urine Color Yellow (Yellow); Urobilinogen Urine 1 mg/dL (Negative); pH Urine 5 (5-7)
[2022-01-25 19:22] LABS: Bacteria Urine 1+ /hpf; RBC Urine 0-4 /hpf (0-2)
[2022-01-25 19:23] LABS: Add Urine Culture? Yes; Hyaline Casts Urine 0-4 /lpf
[2022-01-25 19:25] LABS: Influenza A by IFA negative (Negative); Influenza B by IFA negative (Negative)
[2022-01-25 19:33] LABS: Glucose Point of Care 147 mg/dL (70-110)
[2022-01-25 19:43] LABS: SARS Covid-2 Antigen negative (Negative)
[2022-01-25] MEDS: iohexol 350 mg/mL 500 mL Btl (per mL) IV (19:54)
[2022-01-25] MEDS: aztreonam 2,000 MG in sodium chloride 0.9% (plus) 100 ML 200 MG IV (20:27)
[2022-01-25 20:29] LABS: Hematocrit 31.2 % (37.0-47.0); Hemoglobin 9.8 g/dL (11.5-15.3)
--- NOTE | 2022-01-25 20:36 | PM.HP ---
Providers/Chief Complaint Primary Care Provider: Bong Simmons DO Chief Complaint: Flu Symptoms History of Present Illness Xenia Vivas is a 71 year old female who I discharged last month when she was admitted for systolic heart failure exacerbation at that visit she was diagnosed with small PE for which she required Eliquis, for cavitary lesion Dr. Charles was consulted who agreed with the antifungal work-up and pleural fluid analysis, she does not use oxygen at home she has history of lupus uses belimumab, hydroxychloroquine, leflunomide, for cavitary lesion metronidazole and levofloxacin was prescribed at discharge, her sputum culture, PCP test, Mycobacterium test came back negative. Her stress test showed old SC related infarction left anterior descending territory with hypokinesia of anterior and apical wall. Today she is presenting with chief complaint of worsening of weakness, fatigue, shortness of breath on minimal exertion, sedentary lifestyle, recurrent falls. As per the family she has never recovered since her previous visit in the hospital, she has been falling out of weakness, she does not use insulin she is not diabetic today she was confused, in the ER she was diagnosed with hyperglycemia blood sugar in low 30s. Patient is stating that she has not noticed any dark-colored stools, her stool color is brownish however in the ER she is FOBT positive hemoglobin has dropped to 9.6 she never experienced any chest pain until she arrived in the ER, EKG showing sinus rhythm without ischemic or infarct changes, I requested troponin and EKG series. Patient has seen Dr. Singer for her insomnia and anorexia she was given mirtazapine, fluoxetine and amitriptyline were discontinued. As per the family she has not been able to sleep her appetite is very poor today she only had couple of bites only. She uses a front wheeled walker at home. Since COVID-19 infection her taste has changed and her appetite has worsened. She has not experienced any signs of UTI in the ER she has pyuria with bacteriuria. Mild ANEL. Lactate 6.6. Calcium 10. BNP 44,000 chest x-ray showing vascular congestion. MAP 66. Influenza and COVID antigen negative. Review of Systems Const: Reports: chills, body aches, change in appetite and change in weight Eyes: Denies: change in vision ENMT: Denies: throat pain Card: Reports: chest pain, dyspnea on exertion and orthopnea Resp: Reports: dyspnea GI: Denies: abdominal pain : Denies: flank pain Musc: Denies: neck pain Skin/Breast: Denies: rash Neuro: Denies: headache(s) Psych: Reports: mood swings, sleeping more and loss of interest Endo: Denies: polyuria Aniket/Lymph: Denies: easy bruising All/Imm: Denies: urticaria Medications/Allergies Home Medications Medication Instructions Recorded Confirmed Last Taken Type belimumab 200 mg/mL subcutaneous 200 mg SUBCUT Q7D 02/08/19 01/15/22 Unknown History auto-injector (Benlysta) calcium carbonate 600 mg calcium 600 mg PO DAILY 02/08/19 01/15/22 Unknown History (1,500 mg) tablet (Calcium) cholecalciferol (vitamin D3) 25 1,000 unit PO DAILY 02/08/19 01/15/22 Unknown History mcg (1,000 unit) capsule dextran 70-hypromellose (PF) 0.1 1 drop ophthalmic (eye) ONCE 02/08/19 01/15/22 Unknown History %-0.3 % eye drops in a dropperette (Natural Tears (PF)) omega-3 fatty acids 1,000 mg 1,000 mg PO DAILY 02/08/19 01/15/22 Unknown History capsule (Fish Oil Concentrate) hydroxychloroquine 200 mg tablet 200 mg PO DAILY 03/16/19 01/15/22 Unknown History leflunomide 20 mg tablet 20 mg PO DAILY 03/16/19 01/15/22 Unknown History zinc 50 mg tablet 50 mg PO DAILY 09/14/20 01/15/22 Unknown History omeprazole 40 mg capsule,delayed 40 mg PO DAILY 12/16/21 01/15/22 Unknown History release vitamin E 400 unit tablet 400 unit PO DAILY 12/16/21 01/15/22 Unknown History albuterol sulfate 90 mcg/actuation 2 puff inhalation Q4H PRN 12/20/21 01/15/22 Unknown Rx aerosol inhaler Shortness Of Breath #6 grams apixaban 5 mg tablet (Eliquis) 5 mg PO BID@0900,2100 #90 tabs 12/20/21 01/15/22 Unknown Rx potassium chloride 10 mEq 10 meq PO DAILY #60 tabs 12/20/21 01/15/22 Unknown Rx tablet,extended release bupropion HCl 150 mg tablet,12 hr 150 mg PO QAM #30 tabs 01/01/22 01/15/22 Unknown Rx sustained-release (Wellbutrin SR) furosemide 20 mg tablet 10 mg PO DAILY #60 tabs 01/02/22 01/15/22 Unknown Rx Front wheeled walker #1 ea 01/15/22 01/15/22 Unknown Rx Knee high compression Stockings #2 ea 01/15/22 01/15/22 Unknown Rx magnesium 200 mg tablet 200 mg PO DAILY #30 tabs 01/15/22 01/15/22 Unknown Rx mirtazapine 15 mg tablet 15 mg PO DAILY #30 tabs 01/15/22 01/15/22 Unknown Rx Allergies Allergy/AdvReac Type Severity Reaction Status Date / Time Penicillins Allergy Severe swelling Verified 01/15/22 09:14 Sulfa (Sulfonamide Allergy Severe rash Verified 01/15/22 09:14 Antibiotics) PFSH Acute PFSH: Medical History Aortic stenosis Cavitary lesion of lung CHF NYHA class III History of breast cancer History of pulmonary hypertension History of TIA (transient ischemic attack) Hx of radiation therapy Hyperlipidemia LDL goal <100 Immunosuppression NSTEMI (non-ST elevated myocardial infarction) Osteopenia Other specified disorders involving the immune mechanism, not elsewhere classified Pneumonia Port-A-Cath in place 03/2016 Pulmonary embolism Systemic lupus erythematosus (SLE) in adult Systemic lupus erythematosus, unspecified Systolic CHF Varicose veins of bilateral lower extremities with other complications Vitamin D deficiency, unspecified Surgical History H/O brain surgery H/O lumpectomy 2007 History of hysterectomy 1982 S/P arthroscopy of shoulder Family History Other Cancer Hyperlipidemia Migraine headache Osteoarthritis Rheumatoid arthritis Stroke Social History Smoking and tobacco status: never smoked Second hand smoke exposure: No Smoking risk assessment/counseling performed?: No Alcohol intake: current Alcohol intake frequency: holidays/special occasions only Desire information about alcohol rehabilitation?: No Desire information about substance/drug rehabilitation?: No History of recent travel: No Female Reproductive History: Spontaneous abortions: No Vitals/I&O/Wt Last Vital Signs Temp 96.3 F L 01/25/22 16:46 Pulse 70 01/25/22 18:28 Resp 22 H 01/25/22 18:28 BP 107/52 01/25/22 18:28 Pulse Ox 96 01/25/22 18:28 O2 Del Method 01/25/22 18:28 O2 Flow Rate 1 01/25/22 16:46 Weight last 48 hrs Weight 63.503 kg Physical Exam Narrative: Pleasant cooperative female Awake and alert Lethargic and fatigued MAP 66 Variable S1-S2 Abdomen soft No signs of edema of legs Bilateral breath sounds with crackles and rhonchi Currently on room air saturating family at the bedside No skin rash No signs of meningitis or encephalitis Not in any active distress Dry skin Data 01/25/22 20:24 01/25/22 17:54 A&P Assessment and plan (1) Hypoglycemia: (2) GI bleed: (3) Elevated lactic acid level: (4) Weakness: (5) Orthostatic hypotension: (6) Weight loss, abnormal: (7) Recurrent falls: (8) Aortic stenosis: (9) CHF NYHA class III: (10) Osteopenia: Plan Acute systolic CHF exacerbation EF reduced as per previous echo Stress test was positive for old myocardial infarct left anterior descending artery territory Patient complained of chest pain in the ER requesting EKG and troponin series She does not seem to be septic I will request D-dimer previously she was diagnosed with PE, she has been on Eliquis, last Eliquis dose was 8 AM 01/25 Because of low blood pressure cannot use high-dose of IV Lasix I will admit her to ICU use Levophed for possible cardiogenic shock Patient is not tachycardic or hypoxic Autonomic dysfunction is also possibility related to underlying disease of lupus First EKG shows sinus rhythm Lactic acidemia seems to be due to low blood pressure I will use Levophed, repeat echo to know her EF Acute blood loss anemia FOBT positive On previous admission patient's blood pressure was staying low, she received a dose of albumin this time she is not a good candidate because of CHF exacerbation Hemoglobin is 9.6, repeat H&H Protonix 40 mg IV twice daily Her last dose of Eliquis was today this morning, she has to wait for 48 hours before her EGD Please consult general surgery on Friday Hypoglycemia Check random cortisol She does not take insulin Poor appetite Surprisingly patient has not experienced worsening of confusion, seizure-like activity or focal neurological deficits My concern is related to adrenal insufficiency because of her chronic hypotension, generalized fatigue, recurrent falls, and now this time she is presenting with hypoglycemia I will go ahead and start her on hydrocortisone 100 mg IV every 12 hours UTI I will start her on ceftriaxone Patient has not experienced any symptoms however considering confusion, hyperglycemia I am inclined towards keeping her on antibiotics Anorexia, insomnia I would hold her mirtazapine for now SLE: No acute flare Considering worsening of kidney function I would hold her disease modifying agents her next dose was due for tomorrow belimumab, I am not sure that this drug is associated with adrenal gland insufficiency or chronic fatigue She 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 Holding hydroxychloroquine ANEL: Seems to be cardiorenal in nature patient is fluid overloaded chest x-ray showing basilar congestion Low-dose Lasix because of low blood pressure for now She might need dobutamine with Lasix to perfuse her renal vasculature I will keep patient on clear liquid diet because of positive FOBT Admit to ICU Full code DVT prophylaxis contraindicated SCDs for now Attestations Medical Necessity Statement*: Anticipating more than 2 midnights for hypoglycemia, hypotension, Time Spent in Patient Care: 40 Coding Level of Care Code Acute Supervisor Drapery Hanging for Myag Fwd Diagnoses Hypoglycemia E16.2 GI bleed K92.2 Elevated lactic acid level R79.89 Weakness R53.1 Orthostatic hypotension I95.1 Weight loss, abnormal R63.4 Recurrent falls R29.6 Aortic stenosis I35.0 CHF NYHA class III I50.9 Osteopenia M85.80
--- NOTE | 2022-01-25 20:41 | ECG_ITS ---
[facility] Test Date: 2022-01-25 Pat Name: Xenia Vivas Department: Room: [facility] Gender: Female Side Seam Tender: : 1950 Requested By: Ranjit Torres Order Number: [id number] Ross MD: Henry Abbott M.D. Measurements Intervals [place] Rate: 87 P: 41 [place]: 189 QRS: 22 QRSD: 116 T: 92 QT: 414 QTc: 499 Interpretive Statements SINUS RHYTHM MODERATE INTRAVENTRICULAR CONDUCTION DELAY [110+ ms QRS DURATION] NONSPECIFIC ST & T-WAVE ABNORMALITY Compared to ECG 12/16/2021 13:31:28 No significant changes Electronically Signed On 01-25-2022 23:52:15 CROWN PERFORATOR OPERATOR by Henry Abbott M.D. [id number]
[2022-01-25 20:53] LABS: Lactate (Lactic Acid level) 6.6 mmol/L (0.5-2.2)
[2022-01-25 20:59] LABS: ABG PCO2 27.6 mmHg (35-45); ABG PH Result 7.37 (7.35-7.45); Arterial Blood Gas Hematocrit 32.4 % (37-47); Blood Gas Allen Test Pos; Blood Gas Sample Type Arterial
[2022-01-25 21:00] LABS: Blood Gas Sample Site Radial, right; Oxygen Device ROOM AIR
--- NOTE | 2022-01-25 21:03 | ECG_ITS ---
[facility] Test Date: 2022-01-25 Pat Name: Xenia Vivas Department: Room: Gender: Female Transferrer: : 1950 Requested By: Ranjit Torres Order Number: [id number] Ross MD: Henry Abbott M.D. Measurements Intervals [place] Rate: 86 P: 43 [place]: 191 QRS: 28 QRSD: 112 T: 89 QT: 400 QTc: 480 Interpretive Statements SINUS RHYTHM MODERATE INTRAVENTRICULAR CONDUCTION DELAY [110+ ms QRS DURATION] NONSPECIFIC ST & T-WAVE ABNORMALITY Compared to ECG 12/16/2021 13:31:28 No significant changes Electronically Signed On 01-25-2022 23:50:53 MULTIPLE COIL WINDER by Henry Abbott M.D. [email or web address] [email or web address].[email or web address]/store/OM/[id number]
[2022-01-25] MEDS: vancomycin 1,000 MG in sodium chloride 0.9% 250 ML 250 MG IV (22:04)
--- NOTE | 2022-01-25 22:38 | PC.NURSE ---
Attempted report to ICU @ 7580 and 8974.
[2022-01-25 22:46] LABS: Troponin(5th) Baseline 102 ng/L (0-10)
[2022-01-25] MEDS: morphine IR 15 mg Tablet PO (23:23)
[2022-01-25] MEDS: hydrocortisone 100 mg/2 mL SDV IVP (23:23)
[2022-01-25 23:25] LABS: Hematocrit 33.8 % (37.0-47.0); Hemoglobin 9.8 g/dL (11.5-15.3)
[2022-01-25 23:52] LABS: Estmated Average Glucose 88; Hemoglobin A1C 4.7 % (4.0-6.0)
[2022-01-26] VITALS (15 sets, daily range): BP systolic 72–119; BP diastolic 31–70; PULSE 76–133; RESP 18–36; O2SAT 96–100
[2022-01-26 00:13] LABS: Glucose Point of Care 153 mg/dL (70-110)
[2022-01-26 01:15] LABS: Troponin 5 2HR Delta 5.6 ABS# (0-10)
[2022-01-26 01:16] LABS: Troponin 5 2HR 107.6 ng/L (0-10)
[2022-01-26 01:50] LABS: Thyroid Stimulating Hormone 1.17 uIU/mL (0.27-4.20); Vitamin B12 1081 pg/mL (232-1245)
--- NOTE | 2022-01-26 03:03 | ECG_ITS ---
[facility] Test Date: 2022-01-26 Pat Name: Xenia Vivas Department: Room: ICU09 Gender: Female Clinical Biochemical Geneticist: : 1950 Requested By: Ranjit Torres Order Number: [id number] Ross MD: Chase Terrazas Measurements Intervals [place] Rate: 117 P: 0 [place]: 0 QRS: -14 QRSD: 124 T: 90 QT: 347 QTc: 484 Interpretive Statements ATRIAL FIBRILLATION WITH RAPID VENTRICULAR RESPONSE MODERATE INTRAVENTRICULAR CONDUCTION DELAY [110+ ms QRS DURATION] MINIMAL ST DEPRESSION [0.025+ mV ST DEPRESSION] ABNORMAL RHYTHM ECG Compared to ECG 01/25/2022 21:08:04 ST (T wave) deviation now present Sinus rhythm no longer present T-wave abnormality no longer present Electronically Signed On 01-27-2022 15:51:51 PEDIATRIC MEDICAL ASSISTANT by Chase Terrazas [id number]
[2022-01-26] MEDS: ondansetron 2 mg/ML SDV 2 mL 4 MG IVP (03:25)
--- NOTE | 2022-01-26 03:34 | ECG_ITS ---
[facility] Test Date: 2022-01-26 Pat Name: Xenia Vivas Department: Room: ICU09 Gender: Female Foundry Hand: : 1950 Requested By: Rowena Curtis Order Number: [id number] Reading MD: Chase Terrazas Measurements Intervals [place] Rate: 133 P: 0 [place]: 0 QRS: -20 QRSD: 124 T: 81 QT: 345 QTc: 514 Interpretive Statements ATRIAL FIBRILLATION WITH RAPID VENTRICULAR RESPONSE MODERATE INTRAVENTRICULAR CONDUCTION DELAY [110+ ms QRS DURATION] MINIMAL ST DEPRESSION [0.025+ mV ST DEPRESSION] ABNORMAL RHYTHM ECG Compared to ECG 01/26/2022 02:59:46 No significant changes Electronically Signed On 01-27-2022 15:33:50 VAN DRIVER HELPER by Chase Terrazas [email or web address].[employer]/store/[id number]
[2022-01-26] MEDS: morphine 4 mg/mL SDV 1 mL 2 MG IVP (03:36)
[2022-01-26] MEDS: amiodarone 50 mg/mL SDV 3 mL 150 MG IVP (03:36)
--- NOTE | 2022-01-26 03:57 | PC.NURSE ---
Pt stated she was short of breath and had chest pain. Dr Curtis notified. ordered 2L NC O2, which was placed, and an EKG. EKG completed at bedside and results sent to Ever via voalte. Ever ordered 2 mg IVP morphine, 150 mg IVP amiodarone, and an amiodarone drip to be started. Once medicines had been given, pt stated pain was gone. Pt requested this nurse to call her daughter to inform her of the event.
[2022-01-26 04:42] LABS: Basophils % 0.3 %; Hematocrit 37.7 % (37.0-47.0); Hemoglobin 11.7 g/dL (11.5-15.3); Lymphocytes # 0.5 10^3/uL (0.8-4.8); Lymphocytes % 6.5 %; Mean Corpuscular Hemoglobin 30.2 pg (28.0-34.0); Mean Corpuscular Volume 97.4 fl (81-99); Mean Platelet Volume 12.1 fL (7.4-10.4); Monocytes # 0.8 10^3/uL (0.2-0.9); Monocytes % 10.7 %; Neutrophils # 5.88 10^3/uL (1.8-7.7); Neutrophils % 81.8 %; Nucleated Red Blood Cells % 0 %; Platelet Count 166 10^3/cmm (130-400); Red Blood Count 3.87 10^6/uL (4.1-5.3); Red Cell Distribution Width 15.9 % (12.1-15.1); White Blood Count 7.2 10^3/uL (4.0-10.0)
[2022-01-26 04:58] LABS: Anion Gap 25.1 (5-19); Blood Urea Nitrogen 41 mg/dL (8-23); C Reactive Protein 93.5 mg/L (0.0-4.9); Calcium 9.4 mg/dL (8.5-10.5); Carbon Dioxide 15 mmol/L (22-29); Chloride 101 mmol/L (98-107); Glucose 94 mg/dL (65-115); Magnesium 2.4 mg/dL (1.7-2.3); Osmolality Calculated 290 mOsm/kg (285-295); Phosphorus 5.9 mg/dL (2.5-4.5); Potassium 6.1 mmol/L (3.5-5.1); Sodium 135 mmol/L (136-145)
[2022-01-26] MEDS: LORazepam 2 mg/mL INJ 1 mL 0.5 MG IVP (05:00)
[2022-01-26 05:01] LABS: Lactate (Lactic Acid level) 8.3 mmol/L (0.5-2.2)
[2022-01-26] MEDS: heparin drip 25,000 UNIT/500 ML PREMIX 17.78 UNIT IV (05:01)
[2022-01-26 05:02] LABS: Troponin 5 6HR 135.2 ng/L (0-10); Troponin 5 6HR Delta 33.2 ng/L (0-12)
--- NOTE | 2022-01-26 05:51 | XRR_ITS ---
PROCEDURE INFORMATION: Exam: XR Chest Exam date and time: 01/26/2022 5:57 AM Age: 71 years old Clinical indication: Device placement; Ett placement (vent status); Additional info: Intubation, line placement TECHNIQUE: Imaging protocol: Radiologic exam of the chest. Views: 1 view. COMPARISON: CR (CHEST, ) 01/25/2022 5:21 PM FINDINGS: Tubes, catheters and devices: Endotracheal tube projects above the level of the balwinder. Support devices project over the chest wall. Right chest wall port catheter tip projects over the right atrium. Enteric tube tip terminates in the distal stomach. Lungs: Minimal patchy streaky left perihilar left lung base opacities, no change. Pleural spaces: Unremarkable. No pleural effusion. No pneumothorax. Heart/Mediastinum: Cardiomegaly. Bones/joints: No acute fracture. XR/XR chest 1V portable [id number] IMPRESSION: Minimal patchy streaky left perihilar left lung base opacities, no change.
--- NOTE | 2022-01-26 06:00 | USCV_ITS ---
Xenia Vivas Age: 71 Gender: F : 1950 Exam Date: 01/26/2022 08:34 Ordering Phys: Rowena Curtis MD Technologist: TEOFILO Exam Location: [facility] [place] Indication: ef aortic stenosis BP: 91 / 52 HR: 85 Rhythm: Sinus Technical Quality: Adequate MEASUREMENTS (Male / Female) Normal Values 2D ECHO LV Diastolic Diameter PLAX 5.8 cm 4.2 - 5.9 / 3.9 - 5.3 cm LV Systolic Diameter PLAX 5.2 cm IVS Diastolic Thickness 0.7 cm 0.6 - 1.0 / 0.6 - 0.9 cm IVS Systolic Thickness 0.9 cm LVPW Diastolic Thickness 0.7 cm 0.6 - 1.0 / 0.6 - 0.9 cm LVPW Systolic Thickness 0.8 cm LV Ejection Fraction 2D Teich 15.3 % LV Ejection Fraction MOD 2C 38.4 % LV Ejection Fraction 2C AL 38.0 % DOPPLER AV Peak Velocity 302.3 cm/s LVOT Peak Velocity 96.0 cm/s TR Peak Velocity 285.3 cm/s TR Peak Gradient 32.5 mmHg Right Atrial Pressure 6.0 mmHg Pulmonary Artery Systolic Pressu 38.5 mmHg FINDINGS Left Ventricle Severely increased left ventricular cavity size. Severely decreased left ventricular systolic functionleft ventricular ejection fraction is estimated at moderately decreased left ventricular systolic function. 25%. Right Ventricle The right ventricle is normal in size and function. Right Atrium The right atrium is normal in size. Left Atrium Moderately increased left atrial size. Mitral Valve Severe mitral valve regurgitation. Aortic Valve Moderate aortic valve calcification. Severe aortic valve regurgitation. Mild aortic valve stenosis. Tricuspid Valve Moderate tricuspid valve regurgitation. Mildly elevated RVSP, 40-45 mm Hg. Pulmonic Valve Pulmonic valve not well visualized. Pericardium Normal pericardium without effusion. Aorta Normal ascending aorta dimension. IVC Inferior vena cava not visualized. CONCLUSIONS Severely increased left ventricular cavity size. Severely decreased left ventricular systolic functionleft ventricular ejection fraction is estimated at moderately decreased left ventricular systolic function. 25%. Moderate aortic valve calcification. Severe aortic valve regurgitation. Mild aortic valve stenosis. Severe mitral valve regurgitation. Moderate tricuspid valve regurgitation. Mildly elevated RVSP, 40-45 mm Hg. Chase Terrazas MD (Electronically Signed) Final Date: 26 January 2022 14:59 S
--- NOTE | 2022-01-26 06:02 | ECG_ITS ---
[facility] Test Date: 2022-01-26 Pat Name: Xenia Vivas Department: Room: ICU09 Gender: Female Ranch Hand Supervisor: : 1950 Requested By: Rowena Curtis Order Number: [id number] Reading MD: Chase Terrazas Measurements Intervals [place] Rate: 74 P: 0 [place]: 0 QRS: -72 QRSD: 133 T: 97 QT: 445 QTc: 496 Interpretive Statements ATRIAL FIBRILLATION LEFT AXIS DEVIATION [QRS AXIS < -30] RIGHT BUNDLE BRANCH BLOCK [120+ ms QRS DURATION, UPRIGHT V1, 40+ ms S IN I/aVL/V4/V5/V6] MODERATE T-WAVE ABNORMALITY, CONSIDER LATERAL ISCHEMIA [-0.1+ mV T-WAVE IN I/aVL/V5/V6] Compared to ECG 01/26/2022 03:27:45 Left-axis deviation now present Right bundle-branch block now present Rate decreased from 133 Electronically Signed On 01-27-2022 15:33:32 SERVICE CAR DRIVER by Chase Terrazas [email or web address].[email or web address]/store/[id number]
[2022-01-26 06:04] LABS: ABG PCO2 23.4 mmHg (35-45); Alveolar-Arterial Oxygen Gradi 38.3 mmHg (5-10); Arterial Blood Gas Hematocrit 38.5 % (37-47); Base Excess ABG -18.1 mmol/L (-2.0-2.0); Blood Gas Operator Identificat JB; Blood Gas Sample Site Femoral, left; Blood Gas Sample Type Arterial; Blood Gas Tidal Volume 0.35; Carboxyhemoglobin 0.5 %THgb (0.4-20.1); HCO3 ABG 8.6 mmol/L (22-26); HGB O2 Sat 98.5 % (95-100); Ionized Calcium Level - ABG 1.1 mmol/L (1.1-1.4); Methemoglobin 0.9 % (0.4-1.5); Oxygen Device VENT; Oxygen Saturation ABG 99.9; Potassium Level - ABG 6.2 mmol/L (3.5-5.0); Total Hemoglobin 12.6 g/dL (12-16)
[2022-01-26 06:05] LABS: ABG PH Result 7.17 (7.35-7.45)
[2022-01-26] MEDS: calcium gluconate 0.9% NaCL 1 GM/50 ML PREMIX IV ×2 (06:05→06:22)
[2022-01-26] MEDS: sodium bicarbonate 8.4% 1 mEq/mL 50mL Syr 50 MEQ IVP (06:05)
[2022-01-26] MEDS: dextrose 50% syringe 50 mL 100 ML IVP (06:07)
--- NOTE | 2022-01-26 06:14 | PC.NURSE ---
10 units of Humalog insulin drawn from pixis in error. 10 units of Humalog insluin wasted.
[2022-01-26] MEDS: midazolam 1 mg/mL INJ 2 mL 2 MG IVP (06:19)
[2022-01-26] MEDS: insulin regular-human 10 UNIT in SYRINGE 1 EACH IVP (06:21)
[2022-01-26] MEDS: sodium bicarbonate 150 MEQ in dextrose 5% 1,000 ML IV (06:28)
[2022-01-26] MEDS: sodium chloride 0.9% 500 ML (06:39)
[2022-01-26 06:48] LABS: ABG PCO2 39.7 mmHg (35-45); Alveolar-Arterial Oxygen Gradi 43.6 mmHg (5-10); Arterial Blood Gas Hematocrit 34.1 % (37-47); Blood Gas Allen Test Pos; Blood Gas Operator Identificat JB; Blood Gas Sample Site Femoral, left; Blood Gas Tidal Volume 0.35; Carboxyhemoglobin 0.9 %THgb (0.4-20.1); HCO3 ABG 13.3 mmol/L (22-26); HGB O2 Sat 66.4 % (95-100); Ionized Calcium Level - ABG 1.2 mmol/L (1.1-1.4); Oxygen Device VENT; Oxygen Saturation ABG 67.7; Potassium Level - ABG 5.4 mmol/L (3.5-5.0); Total Hemoglobin 11.1 g/dL (12-16)
[2022-01-26 06:49] LABS: Blood Gas Sample Type Not specified
--- NOTE | 2022-01-26 07:05 | XRR_ITS ---
PROCEDURE INFORMATION: Exam: XR Chest Exam date and time: 01/26/2022 7:26 AM Age: 71 years old Clinical indication: Device placement; Ett placement (vent status); Patient HX: Recheck after 2cm advancement of et tube. ; Additional info: Repositioned ett TECHNIQUE: Imaging protocol: Radiologic exam of the chest. Views: 1 view. COMPARISON: CR (CHEST, ) 01/26/2022 5:57 AM FINDINGS: Tubes, catheters and devices: Great endotracheal tube projects approximately 2.7 cm above the balwinder. Enteric tube tip terminates in the stomach. Right chest wall port catheter tip projects over the right atrium. Support devices project over the chest wall. Lungs: Persistent streaky perihilar left lung base opacities, no change. Pleural spaces: Probable small pleural effusions. Heart/Mediastinum: No cardiomegaly. Bones/joints: No acute fracture. XR/XR chest 1V portable [id number] IMPRESSION: Great endotracheal tube projects approximately 2.7 cm above the balwinder.
--- NOTE | 2022-01-26 07:25 | W.PM.EVENTAC ---
Event Notes Attestations Time Spent in Patient Care: Overnight patient became very anxious, she required Ativan and morphine, her rhythm changed to A. fib RVR When her hemoglobin remained stable I decided to put her on heparin drip along amiodarone after getting amiodarone 150 mg IV push ABG was requested because patient was complaining of shortness of breath right at the time of pressure therapist was about to take her ABG she became unconscious, that point CODE DAIANA was called She never lost pulse, her blood pressure was undetectable, she was intubated by Dr. Shin Her blood sugar remained low, potassium was above 6, EKG showed A. fib with ST depression no signs of ST elevation Patient was getting more acidotic lactic acidemia worsened Cardiology consulted for possible angiogram I have given her 2 A of D50, 10 units of insulin, 2 g of calcium gluconate Left wrist art line has been placed, blood pressure has improved on Levophed and dobutamine Right-sided femoral vein access obtained triple-lumen catheter in place Assessment and plan: I do believe because of combination of Ativan and morphine with hypoglycemia she became unconscious, she never lost pulse there is no signs of ST elevation, her troponins are trending up and she has gone into A. fib RVR Currently she is on Levophed, dobutamine for cardiogenic shock Bicarb drip for severe metabolic acidosis Acute on chronic kidney disease: She might need nephro consultation today as well Treatment of hyperkalemia completed Ruled in for NSTEMI currently on heparin drip hemoglobin remained stable Repeat ABG and BMP Have advance her endotracheal tube from 25 cm to 27 cm at teeth bite, repeating chest x-ray Her daughter is at the bedside, patient is full code Cardiology consulted and notified Please note patient after intubation was arousable, she was fighting the tube she was moving all of her extremities, hypothermia protocol not indicated
[2022-01-26 07:26] LABS: Arterial Blood Gas Hematocrit 34.6 % (37-47); Base Excess ABG -16.2 mmol/L (-2.0-2.0); Blood Gas Allen Test Pos; Blood Gas Sample Type Arterial; Carboxyhemoglobin < 1.0 %THgb (0.4-20.1); HCO3 ABG 11.5 mmol/L (22-26); Ionized Calcium Level - ABG 1.2 mmol/L (1.1-1.4); Methemoglobin 0.5 % (0.4-1.5); Oxygen Saturation ABG 99.9; Potassium Level - ABG 5.2 mmol/L (3.5-5.0); Total Hemoglobin 11.3 g/dL (12-16)
[2022-01-26 07:27] LABS: Alveolar-Arterial Oxygen Gradi 35.4 mmHg (5-10); Blood Gas Operator Identificat MONRO; Blood Gas Sample Site Brachial, left; Blood Gas Tidal Volume 0.38; Oxygen Device VENT
[2022-01-26 07:28] LABS: ABG PH Result 7.15 (7.35-7.45)
--- NOTE | 2022-01-26 07:52 | PM.ACPR ---
Acute Procedures Arterial Line: Time out performed: Yes Size (Gauge): 20 Technique used: guide wire technique Post-Procedure: dry sterile dressing placed Patient tolerated procedure: well Complications: none Site: left and radial Additional comments: Art line was placed under ultrasound guidance, it is showing good arterial waveform This was done after MARQUIS AHMADI was called this was an emergent procedure, Central Line Placement: Right Femoral: Time out performed: Yes Patient placed on monitor/pulse ox: Yes MD prep: mask, gown, gloves and other Central line prep: sterile drapes applied Ultrasound used for placement: Yes Central line lumen inserted: triple Post procedure: sutured in place, good blood return, all ports aspirated, flushed, capped and sterile dressing applied Post procedure x-ray: tip of catheter in good position Patient tolerated procedure: well Complications: none Additional comments: This was an emergent care after MARQUIS AHMADI was called, right IJ was placed under ultrasound guidance Intubation: Additional comments: MARQUIS AHMADI was called, Dr. Shin from the ER intubated the patient when she was unconscious she never lost pulse, she never had any CPR or defibrillation done
[2022-01-26 07:58] LABS: Blood Urea Nitrogen 41 mg/dL (8-23); Calcium 9.2 mg/dL (8.5-10.5); Carbon Dioxide 11 mmol/L (22-29); Chloride 100 mmol/L (98-107); Glucose 355 mg/dL (65-115); Osmolality Calculated 298 mOsm/kg (285-295); Sodium 132 mmol/L (136-145)
[2022-01-26 08:06] LABS: Anion Gap 26.6 (5-19); Potassium 5.6 mmol/L (3.5-5.1)
[2022-01-26 08:31] LABS: Glucose Point of Care 211 mg/dL (70-110)
[2022-01-26 08:54] LABS: ABG PH Result 7.13 (7.35-7.45)
--- NOTE | 2022-01-26 09:05 | USR_ITS ---
PROCEDURE INFORMATION: Exam: US Duplex Lower Extremity Veins, Bilateral Exam date and time: 01/26/2022 9:09 AM Age: 71 years old Clinical indication: Swelling (edema) of limb; Lower extremity, bilateral; Additional info: Possible dvt TECHNIQUE: Imaging protocol: Real-time Duplex ultrasound of the bilateral extremities with 2-D francois scale, color Doppler flow and spectral waveform analysis with image documentation. Complete exam focused on the bilateral lower extremity veins. COMPARISON: US CV venous duplex [facility] [id number] 12/16/2021 10:29 AM FINDINGS: Right deep veins: Unremarkable. The common femoral, femoral, proximal profunda femoral and popliteal veins are patent without thrombus. Normal Doppler waveforms. Normal compressibility and/or augmentation response. Right superficial veins: Saphenofemoral junction is patent without thrombus. Left deep veins: Unremarkable. The common femoral, femoral, proximal profunda femoral and popliteal veins are patent without thrombus. Normal Doppler waveforms. Normal compressibility and/or augmentation response. Left superficial veins: Saphenofemoral junction is patent without thrombus. Soft tissues: Unremarkable. US/[place] [id number] IMPRESSION: No evidence of deep vein thrombosis.
--- NOTE | 2022-01-26 09:19 | PC.NURSE ---
Patient DNR per family and talking about comfort care measures. Dr. Hernandez talking to patient's daughter.
--- NOTE | 2022-01-26 10:57 | PC.NURSE ---
Terminally extubated at 1055, family at bedside. All gtt off prior to extubation
[2022-01-26] MEDS: morphine 4 mg/mL SDV 1 mL IVP ×2 (11:03→13:04)
[2022-01-26] MEDS: LORazepam 2 mg/mL INJ 1 mL IVP (11:37)
--- NOTE | 2022-01-26 13:54 | PM.PN ---
Subjective Subjective: Patient was seen this morning, family members at bedside she is on 50% FiO2, is on pressors, minimal urine output, has a bicarb drip running, for severe metabolic acidosis, heparin drip, amiodarone drip, she is mottled up to the chest, pupils are fixed and dilated, nonresponsive to light, she does not withdraw from pain is on sedation, -Review blood work this morning's show severe metabolic acidosis -Acute renal failure -Severe lactic acidosis -She has shock, likely multifactorial cardiogenic shock, possibly some component of septic shock, shock also related to severe acidosis -NSTEMI, 6-hour troponin 135, delta 33.2 -Monitor showing atrial fibrillation -I spoke to nursing staff, according to nursing staff, patient was alert and awake, then suddenly became nonresponsive -Differential includes likely an acute cardiac event and or pulmonary embolism -No significant aspiration noted -Given concern for sepsis possibly related to UTI I have started on broad-spectrum antibiotic therapy cultures are pending -She is on maximal medical therapy for a cardiac event and pulm embolism she is on heparin -Echocardiogram has been ordered, pending -I had a detailed discussion with patient's daughter at bedside -I discussed patient's evidence of multiorgan failure, acute respiratory failure, acute renal failure severe lactic acidosis, pressor requirements, severe acidosis -According to patient's daughter her mother would not want to live like this, she has been suffering for the last few months, and if it were up to her mom she would just want to pass away comfortably, she would not want artificial forms of life support she tells me her mom would be against all that were doing for her -I discussed options available including continued medical interventions and giving her time we could do further medical interventions further imaging, to find the exact etiology behind what had happened but I have my highly suspicion that it was a cardiac event that led to all this it could be a pulmonary embolism however she was on anticoagulation but we will need to do further testing however she is quite unstable at this time, we can give her kidneys time her pressors time, see if we can correct her acidosis and see how she does. However she is critically ill, her prognosis is guarded, but she is quite critically ill and the likelihood of meaningful recovery is unlikely however we could give her time and see how she does. The other option would be just make her comfortable and allow her to pass away comfortably -As above it was according to patient wishes to not do aggressive interventions, her daughter says she would never want this to be done to her, she just wants her mom to be comfortable to ease her pain and ease her suffering allow her to pass her comfortably -I confirmed with daughter multiple times that this is patient's wish and her voiced wishes to her in the past -I discussed risks and benefits of all options, she boisterously, all questions answered, agreed to proceed with comfort care -Patient was made comfort care, time of was 147 at 01/26/2022 -Critical care time spent over 70 minutes Vitals/I&O/Wt Last Vital Signs Temp 96.3 F L 01/25/22 16:46 Pulse 78 01/26/22 10:00 Resp 18 01/26/22 10:00 BP 93/49 01/26/22 10:00 Pulse Ox 100 01/26/22 10:00 O2 Del Method 01/26/22 10:00 O2 Flow Rate 1 01/25/22 16:46 FiO2 50 01/26/22 10:00 01/25/22 01/26/22 01/26/22 22:59 06:59 14:59 Intake Total 1100 / 1100 537.806 / 4383.699 2076.950 / 1756.950 Balance 1100 / 1100 537.806 / 5587.201 3364.950 / 1756.950 Weight last 48 hrs Weight 63.503 kg Physical Exam Const: COMMON NORMALS: no acute distress HENMT: OTHER: Pupils fixed, dilated, nonresponsive to light Neck/C-Spine: COMMON NORMALS: no lymphadenopathy and Thyroid normal THYROID: Thyroid normal Lymph: LYMPHATIC: no lymphadenopathy noted Chest: COMMONS NORMALS: normal inspection of the chest OTHER: Mottling up to the level of the chest Resp: COMMON NORMALS: normal respiratory effort, No retractions and No use of accessory muscles OTHER: Crackles and wheezing in bilateral lung henson Cardio: COMMON NORMALS: regular rate RATE: regular rate OTHER: Rhythm, atrial fibrillation, S1, S2, normal GI: OTHER: Abdomen soft, nondistended, nontender, bowel sounds decreased, mottling all over abdomen Extremity: NARRATIVE EXTREMITY EXAM: Modeling by lateral lower extremity Neuro: OTHER: Does not follow neurologic testing, does not withdraw from pain, pupils fixed dilated not responsive to light Urinary Catheter Management: Mart: Cath Placed During This Visit: yes Urinary Catheter Date of Insertion: 01/26/22 Urinary Catheter Time of Insertion: 06:43 Sepsis: Is patient septic: Yes Focused sepsis exam performed: Yes Date exam was performed: 01/26/22 Data 01/26/22 04:27 01/26/22 07:08 A&P Assessment and plan (1) Hypoglycemia: (2) GI bleed: (3) Elevated lactic acid level: (4) Weakness: (5) Orthostatic hypotension: (6) Weight loss, abnormal: (7) Recurrent falls: (8) Aortic stenosis: (9) CHF NYHA class III: (10) Osteopenia: Plan Patient proceeding to comfort care Attestations Medical Necessity Statement*: Patient requires hospitalization for cardiogenic shock, lactic acidosis, sepsis, respiratory failure, multiorgan failure, UTI, severe acidemia, hypoxemia respiratory acidosis, proceeding to comfort care Critical Care Time: 70 Procedures Arterial Line Size (Gauge): 20 Coding Level of Care Code 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 [facility] Fwd Diagnoses Hypoglycemia E16.2 GI bleed K92.2 Elevated lactic acid level R79.89 Weakness R53.1 Orthostatic hypotension I95.1 Weight loss, abnormal R63.4 Recurrent falls R29.6 Aortic stenosis I35.0 CHF NYHA class III I50.9 Osteopenia M85.80 Sepsis Event Note Focused Exam Vital Signs Pulse Resp BP Pulse Ox O2 Del Method FiO2 01/26/22 10:00 78 18 93/49 100 Mechanical Ventilation 50 01/26/22 09:30 79 18 98/49 98 Mechanical Ventilation 50 01/26/22 09:00 81 18 91/52 99 Mechanical Ventilation 50 01/26/22 08:00 82 18 112/43 100 Mechanical Ventilation 50 01/26/22 07:00 86 18 99/43 Mechanical Ventilation 50 01/26/22 08:00 50 01/26/22 07:45 87 21 H 100 Mechanical Ventilation 50 01/26/22 07:39 21 H 100 50 01/26/22 06:00 76 72/31 01/26/22 05:00 101 H 35 H 94/70 01/26/22 06:17 36 H 60 01/26/22 04:00 107 H 29 H 92/66 96 01/26/22 03:00 119/61 Respiratory exam: Present wheezes Cardiovascular exam: Present irregularly irregular Capillary refill: > 3 Seconds Peripheral pulse strength: 1+ Faint Peripheral pulse location: Pedal Skin exam: pale and mottling Date exam was performed: 01/26/22 Time exam was performed: 14:03 Bedside Monitoring Fluid responsiveness: Not Fluid Responsive Date bedside monitoring was performed: 01/26/22 Time bedside monitoring was performed: 14:03 Problem List (1) Hypoglycemia: Status: Acute (2) GI bleed: Status: Acute (3) Elevated lactic acid level: Status: Acute (4) Weakness: Status: Acute (5) Orthostatic hypotension: Status: Acute (6) Weight loss, abnormal: Status: Acute (7) Recurrent falls: Status: Acute (8) Aortic stenosis: Status: Acute (9) CHF NYHA class III: Status: Acute (10) Osteopenia: Status: Acute
--- NOTE | 2022-01-26 13:58 | PC.NURSE ---
Patient at 1347, family in room, Dr. Hernandez called and notified. No pulse, no respirations, no BP, no heart or lung sounds ausculatated. [facility]
--- NOTE | 2022-01-26 14:14 | P.DES_ITS ---
Discharge Providers DDS Date of Admission: 01/25/22 21:00 Date Summary Completed: 01/27/22 Attending Provider at Admission: Rowena Curtis MD Attending Provider at Discharge: Derick Hernandez MD Primary Care Provider: Bong Simmons DO DS Diagnoses Hospital Diagnoses (1) Hypoglycemia: (2) GI bleed: (3) Elevated lactic acid level: (4) Weakness: (5) Orthostatic hypotension: (6) Weight loss, abnormal: (7) Recurrent falls: (8) Aortic stenosis: (9) CHF NYHA class III: (10) Osteopenia: (11) Cardiogenic shock: (12) NSTEMI (non-ST elevated myocardial infarction): (13) Goals of care, counseling/discussion: Reason for Visit Reason for Visit Flu Symptoms Summary Summary Summary: Xenia Vivas is a 71 year old female who I discharged last month when she was admitted for systolic heart failure exacerbation at that visit she was diagnosed with small PE for which she required Eliquis, for cavitary lesion Dr. Charles was consulted who agreed with the antifungal work-up and pleural fluid analysis, she does not use oxygen at home she has history of lupus uses belimumab, hydroxychloroquine, leflunomide, for cavitary lesion metronidazole and levofloxacin was prescribed at discharge, her sputum culture, PCP test, Mycobacterium test came back negative.? Her stress test showed old AR related infarction left anterior descending territory with hypokinesia of anterior and apical wall. Today she is presenting with chief complaint of worsening of weakness, fatigue, shortness of breath on minimal exertion, sedentary lifestyle, recurrent falls.? As per the family she has never recovered since her previous visit in the hospital, she has been falling out of weakness, she does not use insulin she is not diabetic today she was confused, in the ER she was diagnosed with hyperglycemia blood sugar in low 30s.? Patient is stating that she has not noticed any dark-colored stools, her stool color is brownish however in the ER she is FOBT positive hemoglobin has dropped to 9.6 she never experienced any chest pain until she arrived in the ER, EKG showing sinus rhythm without ischemic or infarct changes, I requested troponin and EKG series.? Patient has seen Dr. Singer for her insomnia and anorexia she was given mirtazapine, fluoxetine and amitriptyline were discontinued.? As per the family she has not been able to sleep her appetite is very poor today she only had couple of bites only.? She uses a front wheeled walker at home.? Since COVID-19 infection her taste has changed and her appetite has worsened.? She has not experienced any signs of UTI in the ER she has pyuria with bacteriuria.? Mild ANEL.? Lactate 6.6.? Calcium 10.? BNP 44,000 chest x-ray showing vascular congestion.? MAP 66.? Influenza and COVID antigen negative. Overnight patient became very anxious, she required Ativan and morphine, her rhythm changed to A. fib RVR When her hemoglobin remained stable I decided to put her on heparin drip along amiodarone after getting amiodarone 150 mg IV push ABG was requested because patient was complaining of shortness of breath right at the time of pressure therapist was about to take her ABG she became unconscious, that point CODE BLUE was called She never lost pulse, her blood pressure was undetectable, she was intubated by Dr. Shin Her blood sugar remained low, potassium was above 6, EKG showed A. fib with ST depression no signs of ST elevation Patient was getting more acidotic lactic acidemia worsened Cardiology consulted for possible angiogram I have given her 2 A of D50, 10 units of insulin, 2 g of calcium gluconate Left wrist art line has been placed, blood pressure has improved on Levophed and dobutamine Right-sided femoral vein access obtained triple-lumen catheter in place Assessment and plan: I do believe because of combination of Ativan and morphine with hypoglycemia she became unconscious, she never lost pulse there is no signs of ST elevation, her troponins are trending up and she has gone into A. fib RVR Currently she is on Levophed, dobutamine for cardiogenic shock Bicarb drip for severe metabolic acidosis Acute on chronic kidney disease: She might need nephro consultation today as well Treatment of hyperkalemia completed Ruled in for NSTEMI currently on heparin drip hemoglobin remained stable Repeat ABG and BMP Have advance her endotracheal tube from 25 cm to 27 cm at teeth bite, repeating chest x-ray Her daughter is at the bedside, patient is full code Cardiology consulted and notified Please note patient after intubation was arousable, she was fighting the tube she was moving all of her extremities, hypothermia protocol not indicated Patient was seen this morning, family members at bedside she is on 50% FiO2, is on pressors, minimal urine output, has a bicarb drip running, for severe metabolic acidosis, heparin drip, amiodarone drip, she is mottled up to the chest, pupils are fixed and dilated, nonresponsive to light, she does not withdraw from pain is on sedation, -Patient was in shock, on pressors, maps in the low 60s to 65 -Acute respiratory failure on the ventilator on 50% FiO2, O2 sats in the mid 80s -Review blood work this morning's show severe metabolic acidosis, -Hyperkalemia likely secondary acute renal failure -Acute renal failure, minimal urine output, creatinine 1.6 -Severe lactic acidosis -Developing hypothermia, bear hugger in place -She has shock, likely multifactorial cardiogenic shock, possibly some component of septic shock, shock also related to severe acidosis -NSTEMI, 6-hour troponin 135, delta 33.2, with elevated BNP supporting cardiogenic shock -cardiac echo -?Severely increased left ventricular cavity size. Severely ?decreased left ventricular systolic functionleft ventricular ?ejection fraction is estimated at moderately decreased left ?ventricular systolic function. 25%. ?Moderate aortic valve calcification. Severe aortic valve ?regurgitation. Mild aortic valve stenosis. ?Severe mitral valve regurgitation. ?Moderate tricuspid valve regurgitation. Mildly elevated RVSP, ?40-45 mm Hg. -Monitor showing atrial fibrillation -I spoke to nursing staff, according to nursing staff, patient was alert and awake, then suddenly became nonresponsive -Differential includes likely an acute cardiac event and possibly septic shock, pulmonary embolism unlikely as she recently was diagnosed with pulm embolism and was managed with Eliquis however she is on heparin drip -No significant aspiration noted -Given concern for sepsis possibly related to UTI I have started on broad- spectrum antibiotic therapy cultures are pending -She is on maximal medical therapy for a cardiac event and pulm embolism she is on heparin -I had a detailed discussion with patient's daughter at bedside -I discussed patient's evidence of multiorgan failure, acute respiratory failure, acute renal failure, severe lactic acidosis, pressor requirements, severe acidosis, hyperkalemia -I think the cause behind her sudden deterioration is likely cardiogenic shock, due to acute cardiac event, we are doing her best with medical therapy to see if she could clinically improved, come out of her shock,, out of her multiorgan failure so we can consider doing a coronary angiogram -If she has been medically improved urine output can improve kidney function can improve, her shock can improve lactic acid doses can improve, ventilatory support and hypoxic improve then we can proceed with consideration of coronary angiography, cardiology has been consulted -According to patient's daughter her mother would not want to live like this, she has been suffering for the last few months, and if it were up to her mom she would just want to pass away comfortably, she would not want artificial forms of life support she tells me her mom would be against all that were doing for her -I discussed options available including continued medical interventions and giving her time we could do further medical interventions further imaging, to find the exact etiology behind what had happened but I have my highly suspicion that it was a cardiac event that led to all this it could be a pulmonary embolism however she was on anticoagulation but we will need to do further testing however she is quite unstable at this time, we can give her kidneys time her pressors time, see if we can correct her acidosis and see how she does.? However she is critically ill, her prognosis is guarded, but she is quite critically ill and the likelihood of meaningful recovery is unlikely however we could give her time and see how she does.? The other option would be just make her comfortable and allow her to pass away comfortably -As above it was according to patient wishes to not do aggressive interventions, her daughter says she would never want this to be done to her, she just wants her mom to be comfortable to ease her pain and ease her suffering allow her to pass her comfortably -I confirmed with daughter multiple times that this is patient's wish and her voiced wishes to her in the past -I discussed risks and benefits of all options, she boisterously, all questions answered, agreed to proceed with comfort care -Patient was made comfort care, time of was 147 at 01/26/2022 -Critical care time spent over 70 minutes Additional Data Confirmation of as documented by pronouncing clinician: no pulse, no respirations and pupils fixed and dilated Family: at bedside and contacted Additional persons at bedside: nursing staff Attending/PCP notified?: I am attending Advance directives?: No Discharge Plan Discharge Patient Disposition: Condition: Stable Probable Cause of Probable cause of : Cardiac arrest DS Attestations Time Spent in /Discharge Care*: critical care time Critical Care Time (min): 75 Quality - AMI: AMI present?: No Quality - Stroke: CVA present?: No Symptom Onset Unknown: No Quality - VTE: VTE present?: No Coding Level of Care Code 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
--- NOTE | 2022-01-26 14:48 | PC.NURSE ---
Addendum entered by Chely Sanford RN 01/26/22 16:04: Fentanyl wasted with Amelia Rush RN Original Note: Waste Fentanyl wasted with Chely Sanford RN. See Mar.
--- NOTE | 2022-01-26 14:49 | PC.NURSE ---
[facility] released patient. Jose C Cole called.
--- NOTE | 2022-01-26 15:40 | PC.NURSE ---
Body released to Maribel Javed.
== END 2022-01-26 13:47 | disposition expired ==
LOC: ER 20:45 → ICU 21:12
PROVIDERS: Emergency Medicine; Admitting Provider Internal Medicine; Emergency Provider Emergency Medicine; PCP Family Medicine; Visit Provider Family Medicine
DX: I21.4 Non-ST elevation (NSTEMI) myocardial infarction (principal); A41.9 Sepsis, unspecified organism; R65.21 Severe sepsis with septic shock; I50.23 Acute on chronic systolic (congestive) heart failure; J96.90 Respiratory failure, unspecified, unspecified whether with hypoxia or hypercapnia; K92.2 Gastrointestinal hemorrhage, unspecified; N17.9 Acute kidney failure, unspecified; N39.0 Urinary tract infection, site not specified; E87.20 Acidosis, unspecified; E16.2 Hypoglycemia, unspecified; I95.1 Orthostatic hypotension; I35.0 Nonrheumatic aortic (valve) stenosis; M85.80 Other specified disorders of bone density and structure, unspecified site; R57.0 Cardiogenic shock; Z86.711 Personal history of pulmonary embolism; Z86.16 Personal history of COVID-19; I48.91 Unspecified atrial fibrillation; N18.9 Chronic kidney disease, unspecified; D64.9 Anemia, unspecified; I25.2 Old myocardial infarction; M32.9 Systemic lupus erythematosus, unspecified; E78.5 Hyperlipidemia, unspecified; Z86.73 Personal history of transient ischemic attack (TIA), and cerebral infarction without residual deficits; I27.20 Pulmonary hypertension, unspecified; Z85.3 Personal history of malignant neoplasm of breast; Z95.828 Presence of other vascular implants and grafts; R29.6 Repeated falls; I46.9 Cardiac arrest, cause unspecified; Z51.5 Encounter for palliative care; R68.0 Hypothermia, not associated with low environmental temperature; E87.5 Hyperkalemia
CPT/HCPCS: 36416; 36591; 36600; 51701; 51702; 71045; 74177; 80048; 80051; 81001; 82330; 82533; 82607; 82803; 82805; 82962; 83036; 83605; 83735; 83880; 84100; 84443; 84484; 85014; 85018; 85025; 85730; 86140; 86850; 86900; 87086; 87426; 87804; 93005; 93308; 93970; 94002; 94799; 96365; 99285; A4222; J0282; J0610; J1250; J1644; J1720; J1815; J2060; J2250; J2270; J2405; J3010; J3370; J3490; J7030; J7040; J7050; J7060; J7070; Q9967